=== PATIENT | male | born 1950 | race Two or more races ===

== ENCOUNTER → 2017-05-19 | Outpatient (CLI) | payer MEDICARE, OTHER ==
--- NOTE | 2017-05-19 17:11 | US ---
EXAMINATION TYPE: US scrotum with doppler. Grayscale and color Doppler Duplex imaging performed of jose fitzpatrick scrotum. DATE OF EXAM: 05/19/2017 COMPARISON: NONE CLINICAL HISTORY: N45.1 Epididymitis. EXAM MEASUREMENTS: TESTICLES: Right Testicle: 4.2 x 2.4 x 2.9 cm Left Testicle: 3.7 x 2.3 x 3.0 cm EPIDIDYMIS HEAD: Right Epididymis: 0.7 cm Left Epididymis: 1.4 cm Doppler performed to assess for testicular vascularity; good bilateral color flow and waveforms are s een. There is no evidence of testicular torsion. Presence of hydroceles: Right measuring 4.7 x 2.4 x 4.0cm, left measuring 4.4 x 2.0 x 2.3cm Presence of varicoceles: no IMPRESSION: No testicular torsion or mass. Moderate bilateral hydroceles are noted. No epididymal enl argement is seen to suggest epididymitis.
== END | disposition home or self-care (01) ==
LOC: RADUSMAIN 16:26
PROVIDERS: ATTEND Family Medicine
DX: N43.3 Hydrocele, unspecified (principal)
CPT/HCPCS: 76870; 93975

== ENCOUNTER → 2017-05-20 | Outpatient (CLI) | payer MEDICARE, OTHER ==
[2017-05-19 15:43] VITALS: BMI 24.3
== END | disposition home or self-care (01) ==
LOC: PNWHC3 12:54
PROVIDERS: ATTEND Anesthesiology
DX: Z53.9 Procedure and treatment not carried out, unspecified reason (principal)

== ENCOUNTER → 2017-06-20 | Outpatient (CLI) | payer MEDICARE, OTHER ==
--- NOTE | 2017-06-20 12:48 | US ---
EXAMINATION TYPE: US venous doppler duplex LE RT DATE OF EXAM: 06/20/2017 10:52 AM COMPARISON: NONE CLINICAL HISTORY: R Leg Pain M79.604. Right knee pain SIDE PERFORMED: right TECHNIQUE: The lower extremity deep venous system is examined utilizing real time linear array sonog todd with graded compression, doppler sonography and color-flow sonography. VESSELS IMAGED: External Iliac Vein (EIV) Common Femoral Vein Deep Femoral Vein Greater Saphenous Vein * Femoral Vein Popliteal Vein Small Saphenous Vein * Proximal Calf Veins (* superficial vessels) Right Leg: No evidence of DVT. Complex anechoic area right popliteal fossa = 4.1 x 0.8 x 2.5cm, prob able Watters's cyst IMPRESSION: 1. No deep venous thrombosis right lower extremity. 2. Popliteal cyst
== END | disposition home or self-care (01) ==
LOC: RADUSWWP 10:30
PROVIDERS: ATTEND Family Medicine
DX: M71.21 Synovial cyst of popliteal space [Baker], right knee (principal)

== ENCOUNTER → 2017-08-27 | Outpatient (CLI) | payer MEDICARE, OTHER ==
--- NOTE | 2017-08-27 10:41 | MR ---
EXAMINATION TYPE: MR brain wo/w con DATE OF EXAM: 08/27/2017 COMPARISON: CT brain 08/12/2016 HISTORY: Headaches TECHNIQUE: Multiplanar, multisequence images of the brain and brainstem is performed without and with IV contras t, utilizing 7.5 mL intravenous Gadavist . FINDINGS: There is artifact presumably due to patient's dental amalgam. Diffusion weighted images dem onstrate no evidence of a recent infarct or other diffusion abnormality. There is no extra-axial flu id collection. Periventricular, juxtacortical, subcortical hyperintensities are present on inversion recovery and T2-weighted sequences, approximately 20-30 lesions are present. The ventricular system a nd cisternal spaces are normal in size and appearance. The brain volume is age appropriate. Midline structures demonstrate normal morphology. The craniocervical junction appears within normal limits. Post contrast images demonstrate no abnormal enhancement. The dural venous sinuses appear pa tent. The visualized sinuses are remarkable for inflammatory change in the frontal sinus, extensive i nflammatory change in the ethmoid air cells, maxillary sinus left greater than right sphenoid sinus a s on prior CT, and the globes are intact. IMPRESSION: Probable age-related atrophy and chronic small vessel ischemia. Extensive sinus disease.
== END | disposition home or self-care (01) ==
LOC: RADMRIMAIN 08:07
PROVIDERS: ATTEND Nurse Practitioner Family
DX: R51 Headache (principal)
CPT/HCPCS: 70553; A9581

== ENCOUNTER → 2018-09-07 | Outpatient (CLI) | payer MEDICARE, OTHER ==
--- NOTE | 2018-09-07 07:43 | US ---
EXAMINATION TYPE: US kidneys/renal and bladder DATE OF EXAM: 09/07/2018 COMPARISON: NONE CLINICAL HISTORY: R10.9 Unspecified abdominal pain. Bilateral flank pain EXAM MEASUREMENTS: Right Kidney: 10.6 x 4.7 x 3.7 cm Left Kidney: 11.3 x 5.6 x 4.6 cm Right Kidney: no evidence of hydronephrosis Left Kidney: no evidence of hydronephrosis Bladder: not fully distended, wall = 0.4cm Bilateral Jets seen: no There is no evidence for hydronephrosis at this point in time. No nephrolithiasis is seen. No kajal s are identified. The urinary bladder is anechoic. Bilateral ureteral jets are seen. IMPRESSION: No hydronephrosis or nephrolithiasis. Circumferential mild urinary bladder wall thickening is likely related to incomplete distention of the urinary bladder. Correlation with urinalysis is recommended t o exclude cystitis.
== END ==
LOC: RADUSWWP 07:08
PROVIDERS: ATTEND Family Medicine
DX: R10.9 Unspecified abdominal pain (principal)
CPT/HCPCS: 76770

== ENCOUNTER → 2019-01-01 | Outpatient (CLI) | payer MEDICARE, OTHER ==
--- NOTE | 2019-01-01 09:54 | US ---
EXAMINATION TYPE: US abdomen complete DATE OF EXAM: 01/01/2019 COMPARISON: NONE CLINICAL HISTORY: R74.8 Abnormal levels of other serum enzymes. Elevated liver enzymes EXAM MEASUREMENTS: Liver Length: 18.1 cm Gallbladder Wall: 0.2 cm CBD: 0.5 cm Spleen: 10.4 cm Right Kidney: 10.7 x 4.0 x 3.9 cm Left Kidney: 11.4 x 4.9 x 4.2 cm Pancreas: Obscured by bowel gas Liver: There is increased echogenicity of the hepatic parenchyma with diminished visualization of the portal triads most commonly relating to hepatic steatosis and limiting evaluation for underlying hep atic masses. Gallbladder: no evidence of stones Evidence for sonographic Solomon's sign: no CBD: wnl Spleen: wnl Right Kidney: no evidence of hydronephrosis Left Kidney: no evidence of hydronephrosis Upper IVC: wnl Abd Aorta: visualized portions appear wnl The intrahepatic portion of the IVC and proximal abdominal aorta are within normal limits. There is no evidence of cholelithiasis. Common bile duct is unremarkable. The visualized portions of the russell creas are homogenous. The spleen is unremarkable. Kidneys are symmetric and free of hydronephrosis. No renal lesions are seen. IMPRESSION: 1. Findings suggesting mild degree hepatic steatosis. Correlate with liver function tests results. 2. No evidence of cholelithiasis nor acute cholecystitis.
== END | disposition home or self-care (01) ==
LOC: RADUSWWP 08:40
PROVIDERS: ATTEND Nurse Practitioner Family
DX: R74.8 Abnormal levels of other serum enzymes (principal)
CPT/HCPCS: 76700

== ENCOUNTER → 2021-01-04 | Outpatient (CLI) | payer MEDICARE, OTHER ==
--- NOTE | 2021-01-04 11:50 | US ---
EXAMINATION TYPE: US scrotum with doppler. Grayscale and color Doppler Duplex imaging performed of jose fitzpatrick scrotum. DATE OF EXAM: 01/04/2021 COMPARISON: US 2017 CLINICAL HISTORY: Scrotum pain, Swollen Pain, N50.82,N50.89. Severe left sided pain EXAM MEASUREMENTS: TESTICLES: Right Testicle: 4.4 x 3.3 x 2.1 cm Left Testicle: 4.2 x 2.9 x 2.6 cm EPIDIDYMIS HEAD: Right Epididymis: 0.6 cm Left Epididymis: 2.6 cm Doppler performed to assess for testicular vascularity; good bilateral color flow and waveforms are s een. There is no evidence of testicular torsion. Presence of hydroceles: Yes, Left side = 2.0 x 1.3 x 1.2 cm Presence of varicoceles: Yes, Left side Left epididymitis IMPRESSION: 1. No suspicious flow anomaly to suggest testicular torsion. 2. Increased left epididymis flow with increased size suggesting acute left epididymitis. 3. Small left sided hydrocele
== END | disposition home or self-care (01) ==
LOC: RADUSWWP 10:40
PROVIDERS: ATTEND Family Medicine
DX: N43.3 Hydrocele, unspecified (principal)
CPT/HCPCS: 76870; 93975

== ENCOUNTER → 2021-05-17 | Outpatient (CLI) | payer MEDICARE, OTHER ==
[2021-05-17 09:00] LABS: African American GFR (CKD) >90 (>60 ml/min/1.73 sqM); Blood Urea Nitrogen 11 mg/dL (9-20); Non-African American GFR(CKD) >90 (>60 ml/min/1.73 sqM)
--- NOTE | 2021-05-17 11:41 | CT ---
EXAMINATION TYPE: CT urogram wo/w con DATE OF EXAM: 05/17/2021 COMPARISON: Ultrasound 09/07/2018, CT 3 2015 HISTORY: Hematuria CT DLP: 1627 mGycm, Automated Exposure Control for Dose Reduction was Utilized. CONTRAST: CT scan of the abdomen and pelvis is performed with oral and without and with IV Contrast, patient in jected with 100 mL of Isovue 300. FINDINGS: LUNG BASES: No significant abnormality is appreciated. LIVER/GB: Tiny hypodensity within the right lobe of the liver is too small to characterize.. PANCREAS: No significant abnormality is seen. SPLEEN: No significant abnormality is seen. ADRENALS: No significant abnormality is seen. KIDNEYS: There is no hydronephrosis or nephrolithiasis. There are 2 tiny hypodensities measuring less than 5 mm within the right kidney too small to characte rize but statistically most likely related to cysts. There is a mid cortical posterior 1.2 cm left renal lesion which does not meet the criteria of a simp le cyst and measures 45 Hounsfield units. No filling defects within the renal pelvis. The ureters are segmentally demonstrated to be of normal course and caliber. No filling defects. Lack of contrast limits assessment of the distal 2 cm of bila teral ureter. There is severe thickening of the bladder wall. There is a posterior impression likely related to enl arged prostate gland rather than mucosal lesion but cystoscopy and direct visualization is recommende d. Correlate for history of prostate hypertrophy and cystitis or prostatitis. Correlate with PSA.. BOWEL: Diverticulosis with no CT evidence of diverticulitis. Appendix normal.. LYMPH NODES: No greater than 1cm abdominal or pelvic lymph nodes are appreciated. OSSEOUS STRUCTURES: Degenerative ankylosis at the right SI joint to a lesser degree on the left. Deg enerative changes in the mid to lower lumbar spine. Bilateral arthropathy of the hips. OTHER: Aorta of normal caliber. Atherosclerotic change is noted. IMPRESSION: 1. Severe Concentric bladder wall thickening correlate for cystitis. Prostate gland appears to be enl arged. Consider direct visualization to exclude mucosal lesion the bladder. 2. No hydronephrosis or nephrolithiasis. There is an indeterminate 1.2 cm posterior mid cortical lesi on involving the left kidney measuring 45 Hounsfield units. It does not meet the criteria of a simple cyst. Suggestive of Bosniak 3 classification. MRI recommended.
== END | disposition home or self-care (01) ==
LOC: RADCTMAIN 08:18
PROVIDERS: ATTEND Urology
DX: N32.89 Other specified disorders of bladder (principal)
CPT/HCPCS: 82565; 84520; 74178; 74400; Q9967

== ENCOUNTER → 2021-05-24 | Outpatient (CLI) | payer MEDICARE, OTHER ==
[2021-05-24 12:15] LABS: Basophils % (A) 0 %; Eosinophils # (A) 0.3 k/uL (0-0.7); Eosinophils % (A) 4 %; HCT 45.3 % (39.0-53.0); HGB 15.2 gm/dL (13.0-17.5); Lymphocytes # (A) 1.5 k/uL (1.0-4.8); Lymphocytes % (A) 22 %; MCH 34.3 pg (25.0-35.0); MCHC 33.5 g/dL (31.0-37.0); MCV 102.5 fL (80.0-100.0); Macrocytosis Slight; Mean Platelet Volume 8.5; Monocytes # (A) 0.5 k/uL (0-1.0); Monocytes % (A) 7 %; Neutrophils # (A) 4.4 k/uL (1.3-7.7); Neutrophils % (A) 64 %; Platelet Count 251 k/uL (150-450); RBC 4.42 m/uL (4.30-5.90); RDW 13.7 % (11.5-15.5); WBC 6.9 k/uL (3.8-10.6)
[2021-05-24 12:25] LABS: African American GFR (CKD) >90 (>60 ml/min/1.73 sqM); Anion Gap 10 mmol/L; Blood Urea Nitrogen 4 mg/dL (9-20); Calcium 9.1 mg/dL (8.4-10.2); Carbon Dioxide 24 mmol/L (22-30); Chloride 103 mmol/L (98-107); Glucose 108 mg/dL (74-99); Non-African American GFR(CKD) >90 (>60 ml/min/1.73 sqM); Potassium 4.1 mmol/L (3.5-5.1); Sodium 137 mmol/L (137-145)
== END | disposition home or self-care (01) ==
LOC: LABPAT 11:26
PROVIDERS: ATTEND Urology
DX: Z01.812 Encounter for preprocedural laboratory examination (principal); D49.4 Neoplasm of unspecified behavior of bladder; R31.0 Gross hematuria
CPT/HCPCS: 80048; 85025

== ENCOUNTER 2021-06-07 09:31 | Day surgery (SDC) | payer MEDICARE, OTHER ==
[2021-06-01 08:59] VITALS: BMI 25.5
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
[~2021-06-07 09:31] MED LIST: DEXAMETHASONE SOD PHOSPHATE 4 MG/ML 1 ML VIAL IV ONE; HYDROmorphone 0.5 MG/0.5 ML SYRINGE IVP PRN; LACTATED RINGERS 1,000 ML IV SCH; LIDOCAINE 1% (10MG/ML) FOR IV START INTRADERMA PRN; MIDAZOLAM 2 MG/2 ML VIAL IV PRN; ONDANSETRON 4 MG/2 ML VIAL IVP ONE; fentaNYL (PF) 50 MCG/ML 2 ML AMP IV PRN
[2021-06-07] MEDS ORDERED: MIDAZOLAM 2 MG/2 ML VIAL IVP ONE ×2 (11:01→11:14)
[2021-06-07] MEDS ORDERED: LACTATED RINGERS 1,000 ML IV ONE ×2 (13:52→16:30)
--- NOTE | 2021-06-07 14:33 | P.OP ---
Date of Procedure: 06/07/21 Preoperative Diagnosis: Gross hematuria Postoperative Diagnosis: Same Procedure(s) Performed: Cystoscopy with bladder biopsies, fulguration of biopsy sites Anesthesia: MICHELLEA Surgeon: Bin Vicente Estimated Blood Loss (ml): 20 IV fluids (ml): 500 Pathology: other (Biopsies from right lateral bladder wall and left lateral bladder wall.) Condition: stable Disposition: PACU Indications for Procedure: The patient is a 70-year-old male with recent gross hematuria associated with right flank and lower abdominal pain. A CT urogram showed a 1.2 cm left renal complex cyst as well as bladder wall thickening. Cystoscopy shows diminished urethral caliber, trilobar BPH, and erythema of the anterior bladder wall, right lateral bladder wall, and bladder trigone. Urine cytology was unremarkable. He now comes for cystoscopy with biopsies, possible bladder tumor resection. Operative Findings: Hypervascularity surrounding both ureteral orifices, moreso on the right. Trilobar BPH. Diminished urethral caliber. Description of Procedure: The patient was taken to the operating room and placed in the dorsolithotomy position, with his legs supported in Yayo stirrups. The external genitalia was prepped and draped sterilely. The 30 lens was used to introduce the 22-Greek Stortz cystoscopic sheath through the urethral meatus. As the cystoscope was advanced, it was apparent that the urethral caliber would not accommodate the sheath. Therefore, the Roberto urethrotome was used to incise the urethra to 24- Greek. It was then possible to advance the cystoscope through the urethra and into the bladder under direct vision. The prostate was visually occluded, with a trilobar configuration. 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 The ureteral orifices appeared normal, and clear urine effluxed from both. Careful inspection revealed no mucosal abnormalities. Hypervascularity was seen surrounding both ureteral orifices, moreso on the right with extension onto the right lateral bladder wall. No papillary tumors were seen. Using the cold cup biopsy forceps, 2 biopsies were obtained from each side in the area of erythema/hypervascularity. The Bugbee electrode was used to fulgurate the biopsy sites, attaining complete hemostasis. The bladder was emptied and the cystoscope removed. The patient tolerated the procedure well was taken to the recovery room in stable condition.
[2021-06-07] MEDS: HYDROmorphone 0.5 MG/0.5 ML SYRINGE IVP PRN ×2 (14:54→15:32)
[2021-06-07 14:57] VITALS: TEMP 98.1
[2021-06-07] MEDS ORDERED: hydrALAZINE HCL 20 MG/ML 1 ML VIAL IVP ONE (16:10)
[2021-06-07] MEDS ORDERED: hydrALAZINE HCL 20 MG/ML 1 ML VIAL ONE (16:17)
[2021-06-07 17:25] VITALS: BP 174/69; PULSE 65; RESP 18
== END 2021-06-07 17:58 | disposition home or self-care (01) ==
LOC: OR 09:31
PROVIDERS: ATTEND Urology
DX: N30.21 Other chronic cystitis with hematuria (principal); I10 Essential (primary) hypertension; J44.9 Chronic obstructive pulmonary disease, unspecified; F41.9 Anxiety disorder, unspecified; F32.9 Major depressive disorder, single episode, unspecified; Z79.899 Other long term (current) drug therapy
CPT/HCPCS: 88305; 52204; J2250; J0360; J1100; J2405; J1170

== ENCOUNTER 2021-06-23 20:02 | Emergency (ER) | payer MEDICARE, OTHER ==
[2021-06-23 20:07] VITALS: RESP 18; TEMP 97.5
[2021-06-23] MEDS ORDERED: LIDOCAINE URO-JET JELLY 2% 5 ML KIT URETHRAL ONE (20:12)
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
[2021-06-23 21:21] LABS: Basophils % (A) 0 %; Eosinophils # (A) 0.3 k/uL (0-0.7); Eosinophils % (A) 4 %; Lymphocytes # (A) 1.5 k/uL (1.0-4.8); Lymphocytes % (A) 21 %; MCH 34.7 pg (25.0-35.0); MCHC 35.1 g/dL (31.0-37.0); MCV 98.9 fL (80.0-100.0); Mean Platelet Volume 7.9; Monocytes # (A) 0.4 k/uL (0-1.0); Monocytes % (A) 6 %; Neutrophils # (A) 4.7 k/uL (1.3-7.7); Neutrophils % (A) 67 %; Platelet Count 330 k/uL (150-450); RBC 3.34 m/uL (4.30-5.90); RDW 11.5 % (11.5-15.5)
[2021-06-23 21:36] LABS: Appearance,Urine Cloudy (Clear); Bacteria,Urine Occasional /hpf; Bilirubin,Urine Negative (Negative); Blood,Urine Large (Negative); Color,Urine Light Red; Glucose,Urine (UA) Negative (Negative); Hyaline Casts,Urine 1 /lpf (0-2); Ketones,Urine Negative (Negative); Leukocyte Esterase,Urine Large (Negative); Nitrite,Urine Negative (Negative); PH, Urine 6.5 (5.0-8.0); Protein,Urine 1+ (Negative); RBC,Urine 2 /hpf (0-5); Specific Gravity,Urine 1.002 (1.001-1.035); Urobilinogen,Urine <2.0 mg/dL (<2.0); WBC,Urine 10 /hpf (0-5)
[2021-06-23 21:38] LABS: ALT 30 U/L (4-49); AST 32 U/L (17-59); African American GFR (CKD) >90 (>60 ml/min/1.73 sqM); Albumin 3.5 g/dL (3.5-5.0); Alkaline Phosphatase 76 U/L (38-126); Anion Gap 11 mmol/L; Blood Urea Nitrogen 4 mg/dL (9-20); Calcium 8.7 mg/dL (8.4-10.2); Carbon Dioxide 19 mmol/L (22-30); Chloride 98 mmol/L (98-107); Glucose 90 mg/dL (74-99); Non-African American GFR(CKD) 87 (>60 ml/min/1.73 sqM); Potassium 4.1 mmol/L (3.5-5.1); Sodium 128 mmol/L (137-145); Total Bilirubin 0.3 mg/dL (0.2-1.3); Total Protein 6.8 g/dL (6.3-8.2)
[2021-06-23 21:59] LABS: HGB 11.6 gm/dL (13.0-17.5)
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
[2021-06-23 22:44] VITALS: BP 146/78; PULSE 60
== END 2021-06-23 22:44 | disposition home or self-care (01) ==
LOC: EC 20:02
DX: T83.098A Other mechanical complication of other urinary catheter, initial encounter (principal); I10 Essential (primary) hypertension; J44.9 Chronic obstructive pulmonary disease, unspecified; F41.9 Anxiety disorder, unspecified; F32.9 Major depressive disorder, single episode, unspecified; Z88.6 Allergy status to analgesic agent; Y84.6 Urinary catheterization as the cause of abnormal reaction of the patient, or of later complication, without mention of misadventure at the time of the procedure
CPT/HCPCS: 36415; 51702; 80053; 81001; 85025; 99283

== ENCOUNTER 2022-07-05 11:48 | Emergency (ER) | payer MEDICARE, OTHER ==
[2022-07-05 11:58] VITALS: TEMP 98.1
[2022-07-05] MEDS ORDERED: traMADol 50 MG TAB PO STA (12:13)
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
--- NOTE | 2022-07-05 13:02 | US ---
EXAMINATION TYPE: US scrotum with doppler. Grayscale and color Doppler Duplex imaging performed of jose fitzpatrick scrotum. DATE OF EXAM: 07/05/2022 COMPARISON: NONE CLINICAL HISTORY: L pain. ongoing left testicle pain for years, patient states he was supposed to hav e procedure done but never did, unknown exactly what EXAM MEASUREMENTS: TESTICLES: Right Testicle: 3.7 x 2.7 x 2.2 cm Left Testicle: 3.4 x 2.2 x 2.4 cm EPIDIDYMIS HEAD: Right Epididymis: 1.1 cm Left Epididymis: 0.7 cm Doppler performed to assess for testicular vascularity; good bilateral color flow and waveforms are s een. There is no evidence of testicular torsion. Presence of hydroceles: no Presence of varicoceles: left lateral side at area of pain IMPRESSION: 1. Multiple left-sided varicoceles. No evidence for torsion or inflammatory process.
[2022-07-05] MEDS ORDERED: traMADol 50 MG STARTER PACK 3 TAB BTL PO STA (13:18)
[2022-07-05] MEDS ORDERED: atenoloL 50 MG TAB PO STA (14:10)
[2022-07-05] MEDS ORDERED: hydroCHLOROthiazide 25 MG TAB PO STA (14:10)
[2022-07-05 14:21] VITALS: RESP 18
[2022-07-05 15:26] VITALS: BP 181/99; PULSE 78
== END 2022-07-05 14:40 | disposition home or self-care (01) ==
LOC: EC 11:48
DX: I86.1 Scrotal varices (principal); J44.9 Chronic obstructive pulmonary disease, unspecified; I10 Essential (primary) hypertension; Z79.899 Other long term (current) drug therapy; Z88.6 Allergy status to analgesic agent
CPT/HCPCS: 76870; 93975; 99284

== ENCOUNTER 2022-10-30 11:55 | Emergency (ER) | payer MEDICARE, OTHER ==
[2022-10-30 12:02] VITALS: RESP 18
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
[2022-10-30 13:25] LABS: Basophils # (A) 0.1 k/uL (0-0.2); Basophils % (A) 1 %; Eosinophils # (A) 0.2 k/uL (0-0.7); Eosinophils % (A) 2 %; HCT 44.7 % (39.0-53.0); HGB 15.5 gm/dL (13.0-17.5); Lymphocytes # (A) 1.2 k/uL (1.0-4.8); Lymphocytes % (A) 17 %; MCH 33.4 pg (25.0-35.0); MCHC 34.6 g/dL (31.0-37.0); MCV 96.6 fL (80.0-100.0); Monocytes # (A) 0.5 k/uL (0-1.0); Monocytes % (A) 7 %; Neutrophils # (A) 5.2 k/uL (1.3-7.7); Neutrophils % (A) 72 %; Platelet Count 244 k/uL (150-450); RBC 4.63 m/uL (4.30-5.90); RDW 12.3 % (11.5-15.5); WBC 7.3 k/uL (3.8-10.6)
[2022-10-30 13:34] LABS: ALT 50 U/L (4-49); AST 39 U/L (17-59); African American GFR (CKD) >90 (>60 ml/min/1.73 sqM); Albumin 4.3 g/dL (3.5-5.0); Alkaline Phosphatase 86 U/L (38-126); Anion Gap 3 mmol/L; Blood Urea Nitrogen 9 mg/dL (9-20); Calcium 9.1 mg/dL (8.4-10.2); Carbon Dioxide 28 mmol/L (22-30); Chloride 105 mmol/L (98-107); Glucose 101 mg/dL (74-99); Magnesium 2.1 mg/dL (1.6-2.3); Non-African American GFR(CKD) >90 (>60 ml/min/1.73 sqM); Potassium 4.2 mmol/L (3.5-5.1); Salicylate <1.0 mg/dL; Sodium 136 mmol/L (137-145); Total Protein 7.7 g/dL (6.3-8.2)
[2022-10-30 13:38] LABS: INR 1.1 (<1.2); Partial Thromboplastin Time 25.8 sec (22.0-30.0); Prothrombin Time 11.8 sec (9.0-12.0)
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
[2022-10-30 14:58] VITALS: BP 192/83; PULSE 57; TEMP 98.2
== END 2022-10-30 14:58 | disposition home or self-care (01) ==
LOC: EC 11:55
DX: J32.4 Chronic pansinusitis (principal); J44.9 Chronic obstructive pulmonary disease, unspecified; I10 Essential (primary) hypertension; F41.9 Anxiety disorder, unspecified; F32.A Depression, unspecified; Z79.899 Other long term (current) drug therapy; Z88.6 Allergy status to analgesic agent
CPT/HCPCS: 36415; 70450; 80053; 80179; 83735; 85025; 85610; 85730; 93005; 99285

== ENCOUNTER → 2024-01-07 | Outpatient (CLI) | payer MEDICARE, OTHER ==
--- NOTE | 2024-01-07 21:16 | US ---
EXAMINATION TYPE: US abdomen complete DATE OF EXAM: 01/07/2024 COMPARISON: 01/01/2019 CLINICAL INDICATION: Male, 73 years old with history of R74.8 ABN LIVER ENZYMES F10.20 ALCOHOL DEPEND ENCE; Patient drinks about 3 beers per day. Patient denies any signs or symptoms at this time TECHNIQUE: Multiple sonographic images of the abdomen are obtained. FINDINGS: EXAM MEASUREMENTS: Liver Length: 16.1 cm Gallbladder Wall: 0.2 cm CBD: 0.3 cm Spleen: 8.8 cm Right Kidney: 10.5 x 4.6 x 5.3 cm Left Kidney: 11.0 x 6.8 x 6.3 cm ELECTRODYNAMICIST NOTES: Unremarkable exam Pancreas: wnl Liver: wnl Gallbladder: wnl Evidence for sonographic Solomon's sign: No CBD: wnl Spleen: wnl Right Kidney: wnl Left Kidney: wnl Upper IVC: wnl Abd Aorta: wnl IMPRESSION: 1 no suspicious acute ultrasound of the abdomen
== END | disposition home or self-care (01) ==
LOC: RADUSWWP 12:35
PROVIDERS: ATTEND Family Medicine
DX: R74.8 Abnormal levels of other serum enzymes (principal); F10.20 Alcohol dependence, uncomplicated
CPT/HCPCS: 76700

== ENCOUNTER 2024-06-11 11:55 | Observation (INO) | payer MEDICARE, OTHER ==
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
[2024-06-11 12:51] LABS: Basophils % (A) 1 %; Eosinophils # (A) 0.2 k/uL (0-0.7); Eosinophils % (A) 3 %; HCT 45.3 % (39.0-53.0); HGB 15.2 gm/dL (13.0-17.5); Lymphocytes # (A) 1.7 k/uL (1.0-4.8); Lymphocytes % (A) 24 %; MCH 33.7 pg (25.0-35.0); MCHC 33.6 g/dL (31.0-37.0); MCV 100.3 fL (80.0-100.0); Mean Platelet Volume 7.6; Monocytes # (A) 0.6 k/uL (0-1.0); Monocytes % (A) 9 %; Neutrophils # (A) 4.1 k/uL (1.3-7.7); Neutrophils % (A) 60 %; Platelet Count 264 k/uL (150-450); RBC 4.51 m/uL (4.30-5.90); RDW 12.3 % (11.5-15.5); WBC 6.9 k/uL (3.8-10.6)
[2024-06-11 13:03] LABS: ALT 42 U/L (4-49); AST 44 U/L (17-59); African American GFR (CKD) >90 (>60 ml/min/1.73 sqM); Albumin 4.2 g/dL (3.5-5.0); Alkaline Phosphatase 71 U/L (38-126); Anion Gap 8 mmol/L; Blood Urea Nitrogen 11 mg/dL (9-20); Calcium 9.3 mg/dL (8.4-10.2); Carbon Dioxide 26 mmol/L (22-30); Chloride 104 mmol/L (98-107); Glucose 78 mg/dL (74-99); Magnesium 2.3 mg/dL (1.6-2.3); Non-African American GFR(CKD) 86 (>60 ml/min/1.73 sqM); Sodium 138 mmol/L (137-145); Total Bilirubin 1.1 mg/dL (0.2-1.3); Total Protein 7.5 g/dL (6.3-8.2)
[2024-06-11 13:11] LABS: INR 1.1 (<1.2); Partial Thromboplastin Time 27.2 sec (22.0-30.0); Prothrombin Time 11.8 sec (10.0-12.5)
[2024-06-11 13:48] LABS: Acetaminophen <10.0 ug/mL; Amylase 73 U/L (30-110); Lipase 140 U/L (23-300)
[2024-06-11] MEDS: SODIUM CHLORIDE 0.9% 500 ML 500 ML IV STA (13:50)
--- NOTE | 2024-06-11 13:51 | CT ---
EXAMINATION TYPE: CT brain wo con CT DLP: 1095.7 mGycm, Automated exposure control for dose reduction was used. DATE OF EXAM: 06/11/2024 1:43 PM COMPARISON: 10/30/2022. CLINICAL INDICATION: Male, 73 years old with history of altered mental status, Altered Mental Status TECHNIQUE: Brain: Axial CT images of the brain were obtained with coronal and sagittal reformats created and rev iewed. Contrast used: None. Oral contrast used: None. FINDINGS: Brain: Extra-axial spaces: No abnormal extra-axial fluid collections. Ventricular system: Within normal limits Cerebral parenchyma: Focal area of wolfe-white matter differentiation medially a posterior right front al lobe. No acute intraparenchymal hemorrhage or mass effect. The wolfe-white junction is well differ entiated. Cerebellum: Unremarkable. Mass effect: No evidence of midline shift. Intracranial vasculature: Atherosclerotic calcifications of the intracranial vessels. Soft tissues: Normal. Calvarium/osseous structures: No depressed skull fracture. Paranasal sinuses and mastoid air cells: Mild scattered paranasal sinus disease. Visualized orbits: Orbital contents are intact. IMPRESSION: 1. No evidence for acute/subacute ischemia. 2. Remote injury of the right posterior medial frontal lobe.
[2024-06-11 13:57] LABS: NT-Pro-B-Type Natriuretic Pept 1530 pg/mL
[2024-06-11 13:59] LABS: Alcohol 157 mg/dL
[2024-06-11 14:14] VITALS: BP 182/95; PULSE 48; RESP 15
--- NOTE | 2024-06-11 15:04 | CT ---
EXAMINATION TYPE: CT noncontrast chest abdomen pelvis. CT angiogram chest abdomen pelvis CT DLP: 2587 mGycm, Automated exposure control for dose reduction was used. DATE OF EXAM: 06/11/2024 2:01 PM COMPARISON: . CLINICAL INDICATION: Male, 73 years old with history of chest pain, radiates to back; PHH, Chest pain , radiates to back TECHNIQUE: Noncontrast axial imaging of the chest abdomen pelvis were performed. Contrast was then in jected and angiogram of the chest abdomen pelvis was performed. contrast. 3-D reformats and maximum i ntensity projection format were performed on a separate workstation. Contrast used:100 ml mL of Isovue 370 without and with IV Contrast, Oral contrast used: None FINDINGS: ARTERIAL VASCULATURE: Ascending thoracic aorta and descending thoracic aorta are within normal limits for size. There is no evidence for intramural hematoma within the aorta on noncontrast imaging. Post contrast imaging demonstrates no evidence for dissection. The major vessels of the aortic arch are pa tent. The major vessels of the abdominal aorta are patent. Major vessels of the abdominal aorta are p atent. No significant stenosis is identified. There are 2 right renal arteries and 2 left renal arter ies. The celiac axis superior mesenteric artery and inferior mesenteric arteries are visualized and p atent. PULMONARY ARTERIAL VASCULATURE: Normal caliber. No evidence of filling defect to suggest pulmonary em bolus. VENOUS SYSTEM: Unremarkable. LUNGS/ PLEURA: The lung parenchyma appears unremarkable. AIRWAY: Patent and unremarkable. HEART: Size within normal limits. MEDIASTINUM: No gross evidence of adenopathy. MUSCULOSKELETAL: No acute osseous abnormalities SOFT TISSUES/LYMPH NODES: Unremarkable. LOWER NECK: No significant findings. Abdomen: LIVER: Unremarkable GALLBLADDER AND BILE DUCTS: Unremarkable. PANCREAS: Unremarkable. SPLEEN: Unremarkable. ADRENAL GLANDS: Unremarkable. KIDNEYS AND URETERS: No evidence of hydronephrosis or renal calculus. The ureters are unremarkable. PELVIS BLADDER: Unremarkable REPRODUCTIVE: Prostate is enlarged in size measuring 4.9 cm in transverse dimension. Mild enhancement of the left mid central gland series 501 image 269 ABDOMEN & PELVIS STOMACH AND BOWEL: Moderate amount stool throughout the colon. No evidence of bowel obstruction. The appendix is normal. PERITONEUM/RETROPERITONEUM: No evidence of pneumoperitoneum or free fluid. MUSCULOSKELETAL: No acute osseous abnormalities LYMPH NODES: No gross evidence for lymphadenopathy. SOFT TISSUE/ABDOMINAL WALL: Unremarkable IMPRESSION: 1. No evidence for thoracic aortic dissection, occlusion or aneurysm.. 2. Prostatomegaly with some arterial enhancement of the left central gland, correlate with serum PSA . 3. Moderate amount stool throughout the colon.
[2024-06-11] MEDS ORDERED: NALOXONE 0.4 MG/ML 1 ML VIAL IV PRN (15:46)
[2024-06-11] MEDS ORDERED: ALPRAZolam 0.25 MG TAB PO PRN (15:49)
[2024-06-11] MEDS ORDERED: ONDANSETRON 4 MG/2 ML VIAL IVP PRN (15:49)
[2024-06-11] MEDS ORDERED: THIAMINE 100 MG/ML 2 ML VIAL IM STA (15:49)
[2024-06-11] MEDS ORDERED: MAG HYDROX/AL HYDROX/SIMETH 30 ML CUP PO PRN (15:49)
[2024-06-11] MEDS ORDERED: CALCIUM CARBONATE 500 MG CHEWABLE PO PRN (15:49)
[2024-06-11] MEDS ORDERED: ACETAMINOPHEN TAB 325 MG TAB PO PRN (15:49)
[2024-06-11] MEDS ORDERED: FOLIC ACID 1 MG TAB PO STA (15:50)
[2024-06-11] MEDS ORDERED: MAGNESIUM SULFATE-D5W PMX 1 GM in DEXTROSE/WATER 1 100ML.BAG IVPB STA (15:50)
[2024-06-11] MEDS ORDERED: MULTIVITAMINS, THERA 1 EACH TAB PO STA (15:50)
[2024-06-11] MEDS ORDERED: DEXTROSE 5%-0.45% NACL 1,000 ML IV SCH (16:00)
[2024-06-11] MEDS ORDERED: FAMOTIDINE 20 MG TAB PO SCH (21:00)
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
--- NOTE | 2024-06-12 00:40 | P.DS ---
Providers Date of admission: 06/11/24 15:50 Expected date of discharge: 06/12/24 Attending physician: Fazal Nichols Consults: 06/11/24 15:46 Consult Physician Routine Consulting Provider: Adam Sun Consult Reason/Comments: Chest pain Do you want consulting provider notified?: Yes, Notify in am Primary care physician: [facility] Hospital Course: Discharge diagnosis Acute alcohol intoxication with serum alcohol level 157 Chest pain radiating to the back. CT aorta showed no dissection or aneurysm. Rule out ACS Left lower extremity pain and tingling sensation. CT head is negative. Anxiety/depression Alcohol abuse Uncontrolled hypertension COPD DVT prophylaxis heparin subcu Hospital course Patient is a 73-year-old male with a past medical history of COPD, hypertension, anxiety/depression and alcohol use presents to ER with complaints of chest pain. Patient is somewhat poor historian due to intoxication. Patient states he has a history of prior stroke. Patient complains of chest pain radiating to the back. He is also complaining of left lower extremity and upper extremity tingling sensation and pain. Patient states that his chest pain is worse with nausea, dizziness and lightheadedness. Symptoms have been present for the past 3 to 7 days. Patient did receive 325 mg aspirin upon arrival. Chest pain comes and goes. Denied any hematemesis or melena. Patient states that he does drink 3-4 beers per day) this morning. Patient is otherwise poor historian. Upon admission CT head was done showed no evidence of acute/subacute ischemia. Remote injury of the right posterior medial frontal lobe. EKG showed sinus bradycardia. CT thoracic aorta showed no evidence for thoracic aortic dissection, occlusion or aneurysm. Prostatomegaly with some arterial enhancement of the left central gland correlate with serum PSA. Moderate amount of stool throughout the colon. Blood pressure was 158/75 pulse is 50 and respiration 18 and pulse ox 98% on room air. Laboratory data showed WBC 6.9 hemoglobin 15.1 platelets 264 sodium 138 potassium 4.0 chloride 104 bicarb is 26 BUN 11 creatinine 0.99 liver enzymes are not elevated. Ammonia less than 9 troponin x 2 negative proBNP 1530 amylase lipase within normal limits. Serum alcohol level is 157. Patient was continued on telemonitoring. Continued with aspirin. was started back on blood pressure medications and titrate dose as required. Monitored for alcohol withdrawal symptoms. Thiamine and multivitamins. IV hydration. Continue with pain management. Cardiology evaluation due to complaints of chest pain. Troponin x 2 negative. proBNP 1530.. Alcohol abstinence will be counseled once patient is more sober. Patient does not want to stay until cardiology evaluation and left AMA. Discharge physical examination was done and vitals reviewed. Patient Condition at Discharge: Fair Plan - Discharge Summary New Discharge Prescriptions: No Action traZODone HCL [Desyrel] 50 mg PO HS Atenolol/Chlorthalidone [Atenolol-Chlorthalidone 100-25] 1 each PO QAM Albuterol Sulfate [Proair Hfa] 2 puff INHALATION Q4H PRN PRN Reason: Shortness Of Breath Acetaminophen [Tylenol Extra Strength] 500 mg PO Q4H PRN PRN Reason: Pain Cholecalciferol [Vitamin D3 (25 Mcg = 1000 Iu)] 25 mcg PO DAILY Amoxic-Pot Clav 875-125Mg [Augmentin 875-125] 1 tab PO BID 10 Days #20 tab Discharge Medication List Atenolol/Chlorthalidone [Atenolol-Chlorthalidone 100-25] 1 each PO QAM 07/01/16 [History] traZODone HCL [Desyrel] 50 mg PO HS 07/01/16 [History] Acetaminophen [Tylenol Extra Strength] 500 mg PO Q4H PRN 05/19/17 [History] Albuterol Sulfate [Proair Hfa] 2 puff INHALATION Q4H PRN 05/19/17 [History] Cholecalciferol [Vitamin D3 (25 Mcg = 1000 Iu)] 25 mcg PO DAILY 06/05/21 [History] Amoxic-Pot Clav 875-125Mg [Augmentin 875-125] 1 tab PO BID 10 Days #20 tab 10/30/22 [Rx] Follow up Appointment(s)/Referral(s): Fara Fitzpatrick MD [Primary Care Provider] - 1-2 days Discharge Disposition: LEFT AGAINST MEDICAL ADVICE
== END 2024-06-11 19:29 | disposition left against medical advice (07) ==
LOC: EC 11:55 → 6NMEDSUR 15:50
PROVIDERS: ADMIT Internal Medicine; ATTEND Internal Medicine
DX: R07.89 Other chest pain (principal); F10.229 Alcohol dependence with intoxication, unspecified; M79.605 Pain in left leg; R20.2 Paresthesia of skin; J44.9 Chronic obstructive pulmonary disease, unspecified; I10 Essential (primary) hypertension; F32.A Depression, unspecified; F41.9 Anxiety disorder, unspecified; Y90.6 Blood alcohol level of 120-199 mg/100 ml; Z86.73 Personal history of transient ischemic attack (TIA), and cerebral infarction without residual deficits; Z79.899 Other long term (current) drug therapy; Z88.6 Allergy status to analgesic agent; Z53.29 Procedure and treatment not carried out because of patient's decision for other reasons
CPT/HCPCS: 36415; 70450; 71275; 74174; 80053; 80143; 80320; 82140; 82150; 83690; 83735; 83880; 84484; 85025; 85610; 85730; 93005; 96360; 99285

== ENCOUNTER → 2024-07-29 | Outpatient (CLI) | payer MEDICARE, OTHER ==
--- NOTE | 2024-07-29 16:26 | XR ---
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 FINDINGS: The osseous structures show normal alignment without evidence of an acute fracture. There are osteoph ytes noted throughout the cervical spine on the anterior and lateral aspects of the vertebral bodies. The intervertebral disk spaces are narrowed at multiple levels. Pedicles are intact. Soft tissues a re within normal limits. The odontoid appears intact. IMPRESSION: 1. No fracture or dislocation. 2. Mild degenerative disc disease changes of the cervical spine. [facility], , 07/29/2024 4:23 PM
== END | disposition home or self-care (01) ==
LOC: RADXRMAIN 15:28
PROVIDERS: ATTEND Family Medicine
DX: M50.30 Other cervical disc degeneration, unspecified cervical region (principal)
CPT/HCPCS: 72050

== ENCOUNTER 2024-12-02 03:27 | Emergency (ER) | payer MEDICARE, OTHER ==
[2024-12-02 03:46] VITALS: RESP 18
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
[2024-12-02 05:16] VITALS: BP 124/75; PULSE 75; TEMP 97.8
[2024-12-16] MEDS: FUROSEMIDE 10 MG/ML 4 ML VIAL IV ONE (17:13)
[2024-12-16] MEDS: LIDOCAINE 1% INJ 10MG/ML (30 ML VIAL-PF) SQ ONE (17:13)
== END 2024-12-02 05:16 | disposition home or self-care (01) ==
LOC: EC 03:27
DX: T83.091A Other mechanical complication of indwelling urethral catheter, initial encounter (principal); Z87.891 Personal history of nicotine dependence; Z88.6 Allergy status to analgesic agent
CPT/HCPCS: 51702; 99283

== ENCOUNTER 2024-12-15 16:20 | Inpatient (IN) | payer MEDICARE, OTHER ==
[2024-12-15] MEDS ORDERED: HEPARIN SODIUM 1,000 UN/ML (10ML VL) IV PRN (16:32)
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
[2024-12-15 16:44] LABS: Basophils % (A) 0 %; Eosinophils % (A) 0 %; HCT 43.1 % (39.0-53.0); HGB 13.3 gm/dL (13.0-17.5); Hypochromasia Slight; Lymphocytes # (A) 1.1 k/uL (1.0-4.8); Lymphocytes % (A) 14 %; MCHC 30.9 g/dL (31.0-37.0); MCV 100.3 fL (80.0-100.0); Mean Platelet Volume 7.3; Monocytes # (A) 0.4 k/uL (0-1.0); Monocytes % (A) 5 %; Neutrophils # (A) 6.6 k/uL (1.3-7.7); Neutrophils % (A) 79 %; Platelet Count 282 k/uL (150-450); RDW 13.5 % (11.5-15.5); WBC 8.3 k/uL (3.8-10.6)
[2024-12-15] MEDS: HEPARIN SODIUM 1,000 UN/ML (10ML VL) IV ONE (16:47)
[2024-12-15] MEDS: DILTIAZEM 125 MG in SODIUM CHLORIDE 0.9% 100 ML IV SCH (16:49)
[2024-12-15] MEDS: DILTIAZEM DRIP BOLUS FROM BAG 1 MG SOLN IV ONE (16:49)
[2024-12-15] MEDS: HEPARIN SOD,PORK IN 0.45% NACL 25,000 UNIT in 0.45% NACL 1 250ML.BAG IV SCH (16:49)
[2024-12-15 16:56] LABS: ALT 21 U/L (4-49); AST 23 U/L (17-59); African American GFR (CKD) 70 (>60 ml/min/1.73 sqM); Albumin 4.1 g/dL (3.5-5.0); Alkaline Phosphatase 84 U/L (38-126); Anion Gap 15 mmol/L; Blood Urea Nitrogen 20 mg/dL (9-20); Calcium 9.7 mg/dL (8.4-10.2); Carbon Dioxide 16 mmol/L (22-30); Chloride 104 mmol/L (98-107); Glucose 107 mg/dL (74-99); Magnesium 1.8 mg/dL (1.6-2.3); Non-African American GFR(CKD) 60 (>60 ml/min/1.73 sqM); Potassium 5.4 mmol/L (3.5-5.1); Sodium 135 mmol/L (137-145); Total Bilirubin 1.4 mg/dL (0.2-1.3); Total Protein 7.7 g/dL (6.3-8.2)
[2024-12-15 17:03] LABS: INR 1.5 (<1.2); Partial Thromboplastin Time 24.5 sec (22.0-30.0); Prothrombin Time 15.8 sec (10.0-12.5)
--- NOTE | 2024-12-15 17:18 | XR ---
EXAMINATION TYPE: XR chest 2V DATE OF EXAM: 12/15/2024 5:12 PM COMPARISON: Chest radiographs from 11/19/2024 TECHNIQUE: XR chest 2V Frontal and lateral views of the chest. CLINICAL INDICATION:Male, 74 years old with history of Chest Pain; FINDINGS: Lungs/Pleura: Small to moderate size left and small right pleural effusions. No focal consolidation o r pneumothorax. Pulmonary vascularity: Pulmonary vascular congestion. Heart/mediastinum: Cardiomediastinal silhouette is enlarged and stable. Musculoskeletal: No acute osseous pathology. IMPRESSION: Cardiomegaly, pulmonary vascular congestion and bilateral pleural effusions. Correlate with BNP for c ongestive heart failure. Superimposed infectious process is not excluded. [facility], , 12/15/2024 5:16 PM
[2024-12-15] MEDS: NITROGLYCERIN SL TABS 0.4 MG TAB SUBLINGUAL STA (18:08)
[2024-12-15] MEDS: MORPHINE SULFATE 4 MG/ML SYRINGE IVP STA (18:19)
[2024-12-15] MEDS ORDERED: ONDANSETRON 4 MG/2 ML VIAL IVP PRN (18:40)
[2024-12-15] MEDS ORDERED: NALOXONE 0.4 MG/ML 1 ML VIAL IV PRN (18:40)
[2024-12-15] MEDS: ASPIRIN 81 MG PO STA (19:37)
[2024-12-15] MEDS: SODIUM CHLORIDE 0.9% 1,000 ML IV SCH (19:38)
[2024-12-15 20:06] LABS: Appearance,Urine Turbid (Clear); Bacteria,Urine Moderate /hpf; Bilirubin,Urine Negative (Negative); Blood,Urine Large (Negative); Color,Urine Red; Glucose,Urine (UA) Negative (Negative); Hyaline Casts,Urine 17 /lpf (0-2); Ketones,Urine Negative (Negative); Leukocyte Esterase,Urine Large (Negative); Mucus,Urine Rare /hpf; Nitrite,Urine Negative (Negative); PH, Urine 5.5 (5.0-8.0); Protein,Urine 3+ (Negative); RBC,Urine >182 /hpf (0-5); Specific Gravity,Urine 1.021 (1.001-1.035); Urobilinogen,Urine <2.0 mg/dL (<2.0); WBC,Urine >182 /hpf (0-5)
[2024-12-15] MEDS: MORPHINE SULFATE 2 MG/ML SYRINGE IVP PRN (22:37)
[2024-12-16] MEDS ORDERED: CYCLOBENZAPRINE 10 MG TAB PO PRN (09:19)
[2024-12-16] MEDS: AMIODARONE 200 MG TAB PO SCH (09:45)
[2024-12-16] MEDS: METOPROLOL TARTRATE 50 MG TAB PO SCH (09:45)
[2024-12-16] MEDS: GABAPENTIN 400 MG CAP PO SCH (09:45)
[2024-12-16] MEDS: APIXABAN 5 MG TAB PO SCH (09:46)
[2024-12-16] MEDS: TAMSULOSIN 0.4 MG CAP.ER.24H PO SCH (09:53)
[2024-12-16] MEDS: THIAMINE 100 MG TAB PO SCH (09:53)
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
[2024-12-16] MEDS: HYDROmorphone 1 MG/ML 1 ML SYRINGE IVP STA (13:27)
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
--- NOTE | 2024-12-16 14:18 | CT ---
EXAMINATION TYPE: CT abdomen pelvis wo con DATE OF EXAM: 12/16/2024 COMPARISON: CTA chest abdomen pelvis dated 06/11/2024 CLINICAL INDICATION: Male, 74 years old with history of abdominal pain; PHH, Abdominal pain TECHNIQUE: CT scan of the abdomen and pelvis is performed without oral or IV contrast. CT DLP: 651.[address] CTDI: mGy Automated exposure control for dose reduction was used. FINDINGS: Within the limitations of a non-contrast study, the following observations are made. There are large bilateral pleural effusions and adjacent lower lobe opacities consistent with noemy sive atelectasis or pneumonia. The gallbladder is surgically absent. There is no biliary ductal dilatation. There is no organomegaly of the liver, pancreas, spleen or adrenal glands. There are no renal calcifications or hydronephrosis. The caliber of the abdominal aorta is normal and there is no retroperitoneal adenopathy or hemorrhage . The bowel loops are normal in caliber is no evidence of obstruction. No inflammatory changes are iden tified in the mesentery. There is a small amount of scattered ascites adjacent to the liver, spleen a nd in the pelvis. There is no free intraperitoneal air. There is no pelvic mass, free fluid, abscess or adenopathy. There is a Lozano catheter in urinary brianna dder. There is mild prostatic hypertrophy with prostatic calcification. The osseous structures and soft tissues are unremarkable. IMPRESSION: 1. Large bilateral pleural effusions and bibasilar pneumonia or compressive atelectasis. 2. Small scattered ascitic fluid. 3. Prostatic hypertrophy. [facility], , 12/16/2024 2:16 PM
[2024-12-16] MEDS: ATROPINE SULFATE 0.1 MG/ML 10ML SYRINGE IV STA ×2 (16:25→16:27)
[2024-12-16] MEDS: EPINEPHrine 10 ML SYRINGE (0.1 MG/ML) IV STA (16:45)
--- NOTE | 2024-12-16 17:37 | CA ---
Transthoracic Echo Report Name: Brad Munoz Age: 74 Gender: M : 1950 Exam Date: 12/16/2024 13:38 Exam Location: [facility] Ht (in): 67 Wt (lb): 160 Ordering Physician: Ml Campos Attending/Referring Phys: [id number], [facility] [employer] [employer] Noemi Luong RDCS Procedure CPT: Indications: LVF, was 20-25% Cardiac Hx: Technical Quality: Fair Contrast 1: Definity Total Dose (mL): 2 Contrast 2: Total Dose (mL): MEASUREMENTS (Male / Female) Normal Values 2D ECHO LV Diastolic Diameter PLAX 5.0 cm 4.2 - 5.9 / 3.9 - 5.3 cm LV Systolic Diameter PLAX 4.4 cm IVS Diastolic Thickness 1.2 cm 0.6 - 1.0 / 0.6 - 0.9 cm LVPW Diastolic Thickness 1.1 cm 0.6 - 1.0 / 0.6 - 0.9 cm LV Relative Wall Thickness 0.5 RV Internal Dim ED PLAX 2.1 cm LA Systolic Diameter LX 4.1 cm 3.0 - 4.0 / 2.7 - 3.8 cm M-MODE Aortic Root Diameter MM 3.0 cm LA Systolic Diameter MM 4.2 cm LA Ao Ratio MM 1.4 AV Cusp Separation MM 1.6 cm FINDINGS Left Ventricle Left ventricular ejection fraction is estimated at 5-10%. Mildly increased septal wall thickness. Severely reduced global left ventricular systolic function. Right Ventricle Right Atrium Left Atrium Mildly increased left atrial diameter. Mitral Valve Aortic Valve Tricuspid Valve Pulmonic Valve Pericardium Left pleural effusion. Aorta CONCLUSIONS Limited echo. Definity ECHO contrast used for improved visualization of the endocardial borders (inadequate visualization of two or more contiguous segments). Severely impaired left ventricular systolic function with severe global hypokinesis Previewed by: Dr. Diane Rosa MD (Electronically Signed) Final Date: 16 December 2024 17:36
[2024-12-16 17:51] LABS: Glucose,Whole Blood 122 mg/dL (70-110)
[2024-12-16 18:09] LABS: ABG Base Excess -8.9 mmol/L; ABG HCO3 18 mmol/L (21-25); ABG Oxygen Saturation 99.8 % (94-97); ABG PCO2 44 mmHg (35-45); ABG PH 7.23 (7.35-7.45); ABG PO2 234 mmHg (83-108); ABG TCO2 20 mmol/L (19-24); Allen Test Performed? Yes
[2024-12-16] MEDS: DOPamine DRIP 800 MG in DEXTROSE/WATER 1 250ML.BAG IV SCH (18:33)
--- NOTE | 2024-12-16 20:04 | XR ---
EXAMINATION TYPE: XR chest 1V portable DATE OF EXAM: 12/16/2024 CLINICAL INDICATION: Male, 74 years old with history of Tube placement, progress study. TECHNIQUE: Single AP portable supine view of the chest is obtained. COMPARISON: Chest x-ray from one day earlier FINDINGS: There is new endotracheal tube terminating at inferior clavicular margin approximately 4 t o 5 cm above the toya. There is a new orogastric tube extending below diaphragm. There is new left subclavian central venous catheter terminating at SVC. No pneumothorax is seen. Persistent cardiomegaly with small to moderate-sized bilateral pleural effusions and central vascular congestion. Osseous structures are intact. IMPRESSION: 1. New tubes and lines are satisfactory in position. 2. Persistent cardiomegaly with central vascular congestion and small to moderate-sized bilateral ple ural effusions consistent with CHF exacerbation/fluid overload state. [facility], , 12/16/2024 8:02 PM
[2024-12-16 20:19] LABS: Glucose,Whole Blood 134 mg/dL (70-110)
[2024-12-16] MEDS: DOBUTamine DRIP 500 MG in DEXTROSE/WATER 1 250ML.BAG IV SCH (20:33)
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
--- NOTE | 2024-12-16 22:24 | P.PCN ---
Date of Procedure: 12/16/24 Preoperative Diagnosis: Acute CHF exacerbation, respiratory failure Postoperative Diagnosis: Same Procedure(s) Performed: Triple-lumen catheter insertion Arterial line catheter insertion Anesthesia: local Surgeon: Ricky German Estimated Blood Loss (ml): 0 Pathology: other Condition: critical Disposition: ICU Operative Findings: Arterial line insertion Indication: Hemodynamic monitoring. A time-out was completed verifying correct patient, procedure, site, positioning , and implant(s) or special equipment if applicable. The patients left groin was prepped and draped in sterile fashion. 1% Lidocaine was used to anesthetize the area. An 18G Arrow arterial line was introduced into the femoral artery. The catheter was threaded over the guide wire and the needle was removed with appropriate pulsatile blood return. Blood loss was minimal. The catheter was then sutured in place to the skin and a sterile dressing applied. Perfusion to the extremity distal to the point of catheter insertion was checked and found to be adequate. The patient tolerated the procedure well and there were no complications. Central line insertion Indication: Hemodynamic monitoring/Intravenous access. A time-out was completed verifying correct patient, procedure, site, po sitioning, and implant(s) or special equipment if applicable. The patient was placed in a dependent position appropriate for triple lumen catheter placement based on the vein to be cannulated. The patient's left subclavian area was prepped and draped in sterile fashion. 1% Lidocaine was used to anesthetize the surrounding skin area. A triple lumen 9F Cordis catheter was introduced into the subclavian vein using Seldinger technique. The catheter was threaded smoothly over the guide wire and appropriate blood return was obtained. Each lumen of the catheter was evacuated of air and flushed with sterile saline. The catheter was then sutured in place to the skin and a sterile dressing applied. Perfusion to the extremity distal to the point of catheter insertion was checked and found to be adequate.
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
[2024-12-17] MEDS: traZODone HCL 50 MG TAB PO SCH (00:16)
[2024-12-17] MEDS: ATORVASTATIN 40 MG TAB PO SCH (00:16)
[2024-12-17] MEDS: CHLORHEXIDINE GLUCONATE 15 ML CUP MUCOUS MEM SCH (00:16)
[2024-12-17 03:47] LABS: ABG HCO3 20 mmol/L (21-25); ABG Oxygen Saturation >100.0 % (94-97); ABG PCO2 30 mmHg (35-45); ABG PH 7.42 (7.35-7.45); ABG PO2 242 mmHg (83-108); ABG TCO2 21 mmol/L (19-24)
[2024-12-17 03:49] LABS: Allen Test Performed? no
[2024-12-17 04:09] LABS: Basophils % (A) 0 %; Eosinophils % (A) 0 %; HCT 38.3 % (39.0-53.0); HGB 12.2 gm/dL (13.0-17.5); Hypochromasia Slight; Lymphocytes % (A) 15 %; MCH 31.5 pg (25.0-35.0); MCHC 31.7 g/dL (31.0-37.0); MCV 99.3 fL (80.0-100.0); Monocytes # (A) 0.5 k/uL (0-1.0); Monocytes % (A) 8 %; Neutrophils # (A) 4.9 k/uL (1.3-7.7); Neutrophils % (A) 75 %; Platelet Count 239 k/uL (150-450); RBC 3.86 m/uL (4.30-5.90); RDW 13.8 % (11.5-15.5); WBC 6.5 k/uL (3.8-10.6)
[2024-12-17 04:19] LABS: ALT 84 U/L (4-49); AST 85 U/L (17-59); African American GFR (CKD) 43 (>60 ml/min/1.73 sqM); Albumin 3.2 g/dL (3.5-5.0); Alkaline Phosphatase 73 U/L (38-126); Anion Gap 10 mmol/L; Blood Urea Nitrogen 27 mg/dL (9-20); Calcium 8.8 mg/dL (8.4-10.2); Carbon Dioxide 19 mmol/L (22-30); Chloride 102 mmol/L (98-107); Glucose 79 mg/dL (74-99); Non-African American GFR(CKD) 37 (>60 ml/min/1.73 sqM); Potassium 4.3 mmol/L (3.5-5.1); Sodium 131 mmol/L (137-145); Total Bilirubin 1.1 mg/dL (0.2-1.3); Total Protein 6.5 g/dL (6.3-8.2)
--- NOTE | 2024-12-17 07:47 | XR ---
EXAMINATION TYPE: XR chest 1V portable DATE OF EXAM: 12/17/2024 5:32 AM COMPARISON: Chest radiographs from 12/16/2024 CLINICAL INDICATION: Male, 74 years old with history of Tube placement; TECHNIQUE: XR chest 1V portable Frontal view of the chest. FINDINGS: Lungs/Pleura: Multifocal airspace opacities. No evidence of pneumothorax or pleural effusion. Pulmonary vascularity: Unremarkable. Heart/mediastinum: Cardiomediastinal silhouette is unremarkable. Musculoskeletal: No acute osseous pathology. Other findings: None Lines/Tubes: Endotracheal tube with distal tip 5.5 cm above the toya. Nasogastric tube with its distal tip and side-port projecting under the diaphragm. Left central venous catheter with distal tip at the cavoatrial junction. IMPRESSION: Cardiomegaly, pulmonary vascular congestion and bilateral pleural effusions. Correlate with BNP for c ongestive heart failure. [facility], , 12/17/2024 7:45 AM
--- NOTE | 2024-12-17 08:26 | PCN ---
PROCEDURE NOTE PROCEDURE PERFORMED: Temporary transvenous pacemaker. INDICATIONS: This is a 74-year-old gentleman with history of alcohol abuse, nonischemic cardiomyopathy with severe LV dysfunction, history of congestive heart failure, atrial fibrillation, recent cardiac catheterization that did not reveal significant CAD, presented to the hospital with symptoms of chest pain and shortness of breath, was in atrial fibrillation with rapid ventricular rate. He was on IV Cardizem. After my initial evaluation, I stopped the Cardizem. He was on amiodarone and beta blockers. Around 1 o'clock, he apparently became very bradycardic. An A-team was called. They thought it was a vasovagal episode. I was not informed about it. Around 3:30 this afternoon, the ER nurse calls me, stating that the patient is in atrial fibrillation with episodes of very slow ventricular rate with heart rates dropping into the 20s and he is symptomatic with it. I advised the patient to undergo emergent temporary transvenous pacemaker. I told them to start the patient on dopamine. 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 His heart rate was in the 60s and 70s with the dopamine and he was hemodynamically stable and was oxygenating well. PROCEDURE NOTE: After obtaining informed consent, temporary transvenous pacemaker was performed via the right femoral vein. I obtained right femoral venous access and placed a sheath and a temporary transvenous pacemaker was floated into the right ventricle under fluoroscopic guidance. We obtained adequate pacing and sensing thresholds and patient will be admitted to the ICU. I have asked the hosiery bagger to see if we can either do a pacemaker or a defibrillator on him. He is going to look at his state and make a decision. I am going to stop the amiodarone and hold the metoprolol at this time. MMODL / IJN: [id number] /
[2024-12-17] MEDS: NOREPINEPHRINE 4 MG in SODIUM CHLORIDE 0.9% 250 ML IV SCH (09:52)
[2024-12-17] MEDS: FUROSEMIDE 10 MG/ML 2 ML VIAL IV ONE (09:52)
[2024-12-17] MEDS: FOLIC ACID 1 MG TAB PO SCH (09:59)
[2024-12-17] MEDS: CHOLECALCIFEROL 25 MCG (1000 IU) TABLET PO SCH (09:59)
[2024-12-17] MEDS: ESCITALOPRAM 10 MG TAB PO SCH (10:56)
[2024-12-17 11:01] LABS: Basophils % (A) 0 %; Eosinophils # (A) 0.1 k/uL (0-0.7); Eosinophils % (A) 1 %; HCT 39.8 % (39.0-53.0); HGB 12.2 gm/dL (13.0-17.5); Hypochromasia Slight; Lymphocytes # (A) 1.2 k/uL (1.0-4.8); Lymphocytes % (A) 14 %; MCH 30.4 pg (25.0-35.0); MCHC 30.6 g/dL (31.0-37.0); MCV 99.4 fL (80.0-100.0); Mean Platelet Volume 7.5; Monocytes # (A) 0.6 k/uL (0-1.0); Monocytes % (A) 7 %; Neutrophils # (A) 6.1 k/uL (1.3-7.7); Neutrophils % (A) 76 %; Platelet Count 239 k/uL (150-450); RDW 13.8 % (11.5-15.5)
[2024-12-17 11:42] LABS: Glucose,Whole Blood 81 mg/dL (70-110)
[2024-12-17 12:23] LABS: Urine Alcohol Negative (Negative)
[2024-12-17 12:24] LABS: Urine Barbiturate Negative (Negative); Urine Cocaine Positive (Negative); Urine Methadone Negative (Negative); Urine Opiates Positive (Negative); Urine Phencyclidine Negative (Negative)
[2024-12-17] MEDS: METOPROLOL TARTRATE 25 MG TAB PO SCH (13:11)
--- NOTE | 2024-12-17 13:23 | P.PN ---
Subjective Progress Note Date: 12/17/24 patient is a 74-year-old gentleman past medical history significant for hypertension, hyperlipidemia, systolic CHF, paroxysmal A-fib, who presents the ER because of chest pain and shortness of breath. Patient was admitted in the hospital in November at which time patient was found to have cardiomyopathy and had cardiac cath done which showed normal coronaries. Patient was discharged to rehab facility from where he was discharged home a couple of days back. Patient stated ever since discharge he has been having chest pain in the central location, pressure-like, nonradiating, no aggravating or relieving factor associated with this chest pain. patient also complains of shortness of breath Present on exertion. Patient denies any fever or chills. There is no complaint of orthopnea or PND. Denies any swelling of feet. Because of this shortness of breath, patient came to the ER Initial lab work done in the ER showed WBC 8.2, hemoglobin 13.3, platelet count 282, sodium 139, potassium 5.4, BUN 20, creatinine 1.19, calcium 9.7, bilirubin 1.4, AST 23, ALT 21, troponin 0.012 Urine done showed large amount of leukocyte Estrace, urine WBC 182 EKG done in the ER showed heart rate of 159, irregular in rate and rhythm, no ST segment elevation or depression seen, no T-wave inversions seen. Chest x-ray done in the ER showed cardiomegaly, pulm vascular congestion and bilateral pleural effusion Patient admitted to internal medicine service 12/17. Patient seen and examined. Patient had a rapid response called yesterday afternoon for bradycardia at which time patient AV node blocking agents were discontinued. Patient continued to be bradycardic, cardiology took patient for cardiac catheter for temporary pacemaker insertion. Patient was transferred to ICU where patient was later on intubated because of respiratory distress REVIEW OF SYSTEMS: Review of system cannot be obtained as patient is intubated PHYSICAL EXAMINATION: GENERAL: The patient is intubated HEENT: Pupils are round and equally reacting to light. EOMI. No scleral icterus. No conjunctival pallor. Normocephalic, atraumatic. No pharyngeal erythema. No thyromegaly. CARDIOVASCULAR: S1 and S2 present. No murmurs, rubs, or gallops. PULMONARY: Diminished breath sounds at bases, crackles audible bilateral ABDOMEN: Soft, nontender, nondistended, normoactive bowel sounds. No palpable organomegaly. MUSCULOSKELETAL: No joint swelling or deformity. EXTREMITIES: No cyanosis, clubbing, or pedal edema. NEUROLOGICAL: Gross neurological examination did not reveal any focal deficits. SKIN: No rashes. Assessment and plan Cardiogenic shock Bradycardia Acute hypoxic respiratory failure Acute on chronic systolic CHF, new echo done shows EF of 5 to 10% A-fib with RVR UTI Hyperkalemia History of hyperlipidemia History of hypertension History of chronic systolic CHF with EF of 20-25%, repeat echo shows EF of 5 to 10% Anxiety Depression Monitor vital signs Monitor CBC Monitor CMP Continue telemetry monitoring Aggressive bronchopulmonary hygiene Continue vent management Avoid AV julieth blocking agents Continue transvenous pacing at rate of 8 Continue IV Rocephin Continue dobutamine and Lev[facility]hed [facility] following ID following Labs and medication were reviewed.. Continue same treatment. Continue with symptomatic treatment. Resume home medication. Monitor labs and vitals. DVT and GI prophylaxis. Further recommendations as per clinical course of the patient Dictation was produced using [id number] dictation software. please excuse any grammatical, word or spelling errors. Objective - Vital Signs Vital signs: Vital Signs Temp 97.7 F 12/17/24 04:00 Pulse 105 H 12/17/24 07:00 Resp 18 12/17/24 07:00 BP 129/100 12/17/24 07:00 Pulse Ox 100 12/17/24 07:00 FiO2 40 12/17/24 07:55 Intake & Output 12/16/24 12/17/24 12/17/24 18:59 06:59 18:59 Intake Total 387.107 20 Output Total 200 1540 25 Balance -200 -1152.893 -5 Weight 72.575 kg Intake: Intake, IV Titration 387.107 20 Amount Sodium Chloride 0.9% 1, 220 20 000 ml @ 20 mls/hr IV . Q24H [facility] Rx#:[id number] propofoL 1,000 mg In 167.107 Empty Bag 1 bag @ 15 MCG/ KG/MIN 6.532 mls/hr IV . [id number] [facility] Rx#:[id number] Output: Gastric Drainage 100 Urine 200 1440 25 Other: Voiding Method Indwelling Catheter Indwelling Catheter # Bowel Movements 0 ABP, PAP, CO, CI - Last Documented Arterial Blood Pressure 135/64 - Labs CBC & Chem 7: 12/17/24 10:40 12/17/24 03:48 Labs: Abnormal Lab Results - Last 24 Hours (Table) 12/16/24 12/16/24 12/16/24 Range/Units 17:49 18:07 20:17 RBC (4.30-5.90) m/uL Hgb (13.0-17.5) gm/dL Hct (39.0-53.0) % ABG pH 7.23 L (7.35-7.45) ABG pCO2 (35-45) mmHg ABG pO2 234 H (83-108) mmHg ABG HCO3 18 L (21-25) mmol/L ABG O2 Saturation 99.8 H (94-97) % Hemoglobin 12.6 L (13.0-17.5) gm/dL Sodium (137-145) mmol/L Carbon Dioxide (22-30) mmol/L BUN (9-20) mg/dL Creatinine (0.66-1.25) mg/dL POC Glucose (mg/dL) 122 H 134 H (70-110) mg/dL AST (17-59) U/L ALT (4-49) U/L Albumin (3.5-5.0) g/dL 12/17/24 12/17/24 12/17/24 Range/Units 03:42 03:48 03:48 RBC 3.86 L (4.30-5.90) m/uL Hgb 12.2 L (13.0-17.5) gm/dL Hct 38.3 L (39.0-53.0) % ABG pH (7.35-7.45) ABG pCO2 30 L (35-45) mmHg ABG pO2 242 H (83-108) mmHg ABG HCO3 20 L (21-25) mmol/L ABG O2 Saturation >100.0 H (94-97) % Hemoglobin 12.2 L (13.0-17.5) gm/dL Sodium 131 L (137-145) mmol/L Carbon Dioxide 19 L (22-30) mmol/L BUN 27 H (9-20) mg/dL Creatinine 1.77 H (0.66-1.25) mg/dL POC Glucose (mg/dL) (70-110) mg/dL AST 85 H (17-59) U/L ALT 84 H (4-49) U/L Albumin 3.2 L (3.5-5.0) g/dL
--- NOTE | 2024-12-17 14:43 | P.PN ---
Subjective Progress Note Date: 12/17/24 Principal diagnosis: Reason for follow-up is a UTI Patient is a 74-year-old male with a past medical history significant for COPD hypertension prostate disorder anxiety depression history of heavy alcohol abuse presenting to the hospital for evaluation of chest pain and shortness of breath, patient did have significant breath arrhythmia requiring transvenous pacer intubation admission to ICU also have a positive UA concerning for UTI prompting this consultation. On today's evaluation that is 12/17/2024, the patient continues to be afebrile, the patient is on ventilator FiO2 to 40% no significant purulent Through the ET patient requiring any pressor support as reported by the nursing staff. Patient white count 8.0 creatinine is 1.77 cultures currently pending Objective - Vital Signs Vital signs: Vital Signs Temp 97.7 F 12/17/24 04:00 Pulse 105 H 12/17/24 07:00 Resp 18 12/17/24 07:00 BP 129/100 12/17/24 07:00 Pulse Ox 100 12/17/24 07:00 FiO2 40 12/17/24 11:19 Intake & Output 12/16/24 12/17/24 12/17/24 18:59 06:59 18:59 Intake Total 387.107 20 Output Total 200 1540 25 Balance -200 -1152.893 -5 Weight 72.575 kg 72.575 kg Intake: Intake, IV Titration 387.107 20 Amount Sodium Chloride 0.9% 1, 220 20 000 ml @ 20 mls/hr IV . Q24H [facility] Rx#:[id number] propofoL 1,000 mg In 167.107 Empty Bag 1 bag @ 15 MCG/ KG/MIN 6.532 mls/hr IV . [id number] [facility] Rx#:[id number] Output: Gastric Drainage 100 Urine 200 1440 25 Other: Voiding Method Indwelling Catheter Indwelling Catheter # Bowel Movements 0 ABP, PAP, CO, CI - Last Documented Arterial Blood Pressure 135/64 - Exam GENERAL DESCRIPTION: An elderly male intubated on the vent RESPIRATORY SYSTEM: Unlabored breathing , decreased breath sounds at bases HEART: S1 S2 regular rate and rhythm , ABDOMEN: Soft , no tenderness EXTREMITIES: No edema feet - Labs CBC & Chem 7: 12/17/24 10:40 12/17/24 03:48 Labs: Abnormal Lab Results - Last 24 Hours (Table) 12/16/24 12/16/24 12/16/24 Range/Units 17:49 18:07 20:17 RBC (4.30-5.90) m/uL Hgb (13.0-17.5) gm/dL Hct (39.0-53.0) % MCHC (31.0-37.0) g/dL ABG pH 7.23 L (7.35-7.45) ABG pCO2 (35-45) mmHg ABG pO2 234 H (83-108) mmHg ABG HCO3 18 L (21-25) mmol/L ABG O2 Saturation 99.8 H (94-97) % Hemoglobin 12.6 L (13.0-17.5) gm/dL Sodium (137-145) mmol/L Carbon Dioxide (22-30) mmol/L BUN (9-20) mg/dL Creatinine (0.66-1.25) mg/dL POC Glucose (mg/dL) 122 H 134 H (70-110) mg/dL AST (17-59) U/L ALT (4-49) U/L Albumin (3.5-5.0) g/dL Urine Opiates Screen (Negative) Urine Cocaine Screen (Negative) 12/17/24 12/17/24 12/17/24 Range/Units 03:42 03:48 03:48 RBC 3.86 L (4.30-5.90) m/uL Hgb 12.2 L (13.0-17.5) gm/dL Hct 38.3 L (39.0-53.0) % MCHC (31.0-37.0) g/dL ABG pH (7.35-7.45) ABG pCO2 30 L (35-45) mmHg ABG pO2 242 H (83-108) mmHg ABG HCO3 20 L (21-25) mmol/L ABG O2 Saturation >100.0 H (94-97) % Hemoglobin 12.2 L (13.0-17.5) gm/dL Sodium 131 L (137-145) mmol/L Carbon Dioxide 19 L (22-30) mmol/L BUN 27 H (9-20) mg/dL Creatinine 1.77 H (0.66-1.25) mg/dL POC Glucose (mg/dL) (70-110) mg/dL AST 85 H (17-59) U/L ALT 84 H (4-49) U/L Albumin 3.2 L (3.5-5.0) g/dL Urine Opiates Screen (Negative) Urine Cocaine Screen (Negative) 12/17/24 12/17/24 Range/Units 07:10 10:40 RBC 4.00 L (4.30-5.90) m/uL Hgb 12.2 L (13.0-17.5) gm/dL Hct (39.0-53.0) % MCHC 30.6 L (31.0-37.0) g/dL ABG pH (7.35-7.45) ABG pCO2 (35-45) mmHg ABG pO2 (83-108) mmHg ABG HCO3 (21-25) mmol/L ABG O2 Saturation (94-97) % Hemoglobin (13.0-17.5) gm/dL Sodium (137-145) mmol/L Carbon Dioxide (22-30) mmol/L BUN (9-20) mg/dL Creatinine (0.66-1.25) mg/dL POC Glucose (mg/dL) (70-110) mg/dL AST (17-59) U/L ALT (4-49) U/L Albumin (3.5-5.0) g/dL Urine Opiates Screen Positive A (Negative) Urine Cocaine Screen Positive A (Negative) Assessment and Plan (1) UTI (urinary tract infection) Current Visit: Yes Status: Acute Code(s): N39.0 - URINARY TRACT INFECTION, SITE NOT SPECIFIED SNOMED Code(s): 43593733 Plan: 1patient presented to hospital with increasing shortness of breath which is more likely underlying cardiac etiology as patient noticed to be in A-fib with RVR subsequent getting to bradycardia arrhythmia for the patient being transferred to ICU as per discussion with admitting physician 2-patient also have a significantly positive UA some mental status changes history of prostate disorder with prostatomegaly seen on CT component of UTI not entirely excluded likely due to gram-negative pathogen 3-patient is currently being treated with Rocephin 2 g daily while waiting for the culture to finalize and monitor clinical course closely Dictation was produced using [employer] dictation software. please excuse any grammatical, word or spelling errors. Time with Patient: Less than 30
--- NOTE | 2024-12-17 14:51 | P.PN ---
Subjective Progress Note Date: 12/17/24 74-year-old male patient, known history of severe cardiomyopathy with an ejection fraction of 20%, nonischemic cardiomyopathy, known history of chronic atrial fibrillation, mitral regurgitation, hypertension hyperlipidemia and history of alcoholism. Cardiac catheterization done during recent hospitaliza tion showed normal coronaries. Patient presented to the emergency department with worsening shortness of breath. No reported chest pain. No leg edema. In the emergency, the patient was found to be in A-fib RVR, started on IV heparin and Cardizem drip for rate control. Subsequently, the patient started having episodes of bradycardia. Cardizem drip was discontinued. The patient was having significant bradycardia with hypotension and his heart rate was in the low 30s, A-fib rhythm. Elevated echocardiogram was done and it showed further impairment of the LV function with an EF of around 5 to 10%. There was global reduction of the LV systolic function. Cardiology was involved and the patient was taken to the [facility] and the patient was given a TVP set at the rate of 80. Following that, the patient got moved to the intensive care unit. Upon arrival, the patient was provided lethargic, short of breath, hypotensive. He was already on dopamine which is running at 5 mcg/kg/min. Blood gas showed a pH of 7.23 with a pCO2 of 43.8 and P02 234 and this was done on 100 % NRB. Based on the overall condition, the patient was intubated placed on ventilator. He is on propofol at 35 mcg/kg/min. UO is 100 cc/hr. He is on mechanical ventilator and he is on AC at a rate of 18 , TV 450, FI02 60 and PEEP of 10. Blood work showed a white cell count of 8.3, hemoglobin of 13.3 and a platelet count of 282. The patient has a sodium level of 135 potassium is at 5.4, bicarb is at 16, BUN is 20 with a creatinine of 1.1. proBNP level is more than 10,000. TSH is 4.4. LFTs are normal. UA is positive for white cells and leukocyte esterase with many bacteria. Patient was started on IV Rocephin. Postintubation chest x-ray shows evidence of pulmonary edema and bilateral pleural effusion.. Tube is in good location. There is evidence of pulm vascular congestion and moderate-sized bilateral pleural effusions. A triple-lumen catheter and arterial line was established. On 12/17/2024, the patient is being seen for a follow-up. The patient remains intubated on mechanical ventilator. This morning, the patient had a propofol running at 50 mcg/kg/min. The patient is calm and comfortable and successful mechanical ventilator. His assist-control mode at rate of 18, tidal volume of 450, FiO2 of 40% and PEEP of 10. The blood gas from today shows a pH of 7.42 with a pCO2 of 30 and pO2 of 242. Chest x-rayIs showing pulmonary vascular congestion/edema consistent with CHF. The patient has a TVP placed and the TVP is currently at a backup rate of 60. Meanwhile, the patient heart rate is improved and currently his heart rate is in the low 90s 100 range, still in atrial fibrillation the patient currently is on dobutamine 5 mcg/kg/min. Urine output is adequate. Afebrile. No pressors for now. White cell count is at 8 with a hemoglobin 12.2 and a platelet count of 239. Sodium is at 131, potassium is at 4.3, bicarb is at 19, BUN is 27 with a creatinine of 1.7 and the patient has sustained acute kidney injury. LFTs are mildly elevated including a mild elevation of the AST and ALT. Urine drug screen is positive for cocaine. The patient remains on IV Rocephin on an empiric basis pending further cultures. Objective - Vital Signs Vital signs: Vital Signs Temp 97.7 F 12/17/24 04:00 Pulse 105 H 12/17/24 07:00 Resp 18 12/17/24 07:00 BP 129/100 12/17/24 07:00 Pulse Ox 100 12/17/24 07:00 FiO2 40 12/17/24 07:55 Intake & Output 12/16/24 12/17/24 12/17/24 18:59 06:59 18:59 Intake Total 387.107 20 Output Total 200 1540 25 Balance -200 -1152.893 -5 Weight 72.575 kg Intake: Intake, IV Titration 387.107 20 Amount Sodium Chloride 0.9% 1, 220 20 000 ml @ 20 mls/hr IV . Q24H [facility] Rx#:[id number] propofoL 1,000 mg In 167.107 Empty Bag 1 bag @ 15 MCG/ KG/MIN 6.532 mls/hr IV . [id number] [facility] Rx#:[id number] Output: Gastric Drainage 100 Urine 200 1440 25 Other: Voiding Method Indwelling Catheter Indwelling Catheter # Bowel Movements 0 ABP, PAP, CO, CI - Last Documented Arterial Blood Pressure 135/64 - Exam The patient appeared well nourished and normally developed. Vital signs as documented. The patient is currently sedated, calm and comfortable on propofol. Orogastric and orotracheal tube are both in place Head exam is unremarkable. No scleral icterus or corneal arcus noted. Neck is with jugular venous distension, thyromegaly, or carotid bruits. Carotid upstrokes are brisk bilaterally. Triple-lumen catheter is seen in the left sub clavian Lungs are clear to auscultation and percussion. Breath sounds are diminished in lung base bilaterally Cardiac exam reveals the PMI to be normally sized and situated. Rhythm is paced in atrial fibrillation and the patient has a backup TVP at rate of 60. First and second heart sounds normal. No murmurs, rubs or gallops. Patient is in atrial fibrillation Abdominal exam reveals normal bowel sounds, no masses, no organomegaly and no aortic enlargement. Extremities are nonedematous and both femoral and pedal pulses are quite diminished in lower extremities bilaterally. Femoral pulses are present. Brachial pulses are present. Examination of the skin revealed no evidence of significant rashes, suspicious appearing nevi or other concerning lesions. Neurologically, the patient is sedated on propofol - Labs CBC & Chem 7: 12/17/24 10:40 12/17/24 03:48 Labs: Abnormal Lab Results - Last 24 Hours (Table) 12/16/24 12/16/24 12/16/24 Range/Units 17:49 18:07 20:17 RBC (4.30-5.90) m/uL Hgb (13.0-17.5) gm/dL Hct (39.0-53.0) % ABG pH 7.23 L (7.35-7.45) ABG pCO2 (35-45) mmHg ABG pO2 234 H (83-108) mmHg ABG HCO3 18 L (21-25) mmol/L ABG O2 Saturation 99.8 H (94-97) % Hemoglobin 12.6 L (13.0-17.5) gm/dL Sodium (137-145) mmol/L Carbon Dioxide (22-30) mmol/L BUN (9-20) mg/dL Creatinine (0.66-1.25) mg/dL POC Glucose (mg/dL) 122 H 134 H (70-110) mg/dL AST (17-59) U/L ALT (4-49) U/L Albumin (3.5-5.0) g/dL 12/17/24 12/17/24 12/17/24 Range/Units 03:42 03:48 03:48 RBC 3.86 L (4.30-5.90) m/uL Hgb 12.2 L (13.0-17.5) gm/dL Hct 38.3 L (39.0-53.0) % ABG pH (7.35-7.45) ABG pCO2 30 L (35-45) mmHg ABG pO2 242 H (83-108) mmHg ABG HCO3 20 L (21-25) mmol/L ABG O2 Saturation >100.0 H (94-97) % Hemoglobin 12.2 L (13.0-17.5) gm/dL Sodium 131 L (137-145) mmol/L Carbon Dioxide 19 L (22-30) mmol/L BUN 27 H (9-20) mg/dL Creatinine 1.77 H (0.66-1.25) mg/dL POC Glucose (mg/dL) (70-110) mg/dL AST 85 H (17-59) U/L ALT 84 H (4-49) U/L Albumin 3.2 L (3.5-5.0) g/dL Assessment and Plan Plan: Acute respiratory failure essentially secondary underlying cardiogenic shock. The patient remains intubated on mechanical ventilator. There has been interval improvement in oxygenation and acid-base status. Acute exacerbation of chronic CHF with secondary shortness of breath and hypoxic respiratory failure. Nonischemic cardiomyopathy with severe impairment of LV function and follow-up echocardiogram showing an EF of around 5 to 10%. Cardiac catheterization shows no significant coronary artery disease Atrial fibrillation with RVR with subsequent bradycardia requiring insertion of a temporary venous pacemaker and TVP set at rate of 80. The patient is currently in atrial fibrillation. The patient has a TVP backup. Acute pulmonary edema and bilateral pleural effusion secondary to above Moderate mitral regurgitation Acute kidney injury, creatinine is up to 1.7 Substance abuse/cocaine Metabolic acidosis, with a mild anion gap Alcoholism Hypertension UTI Hyperlipidemia BPH Hyperlipidemia Plan Keep the patient on propofol Continue ventilator support, dropped FiO2 down to 40%, current rhythm is atrial fibrillation Continue TVP at rate of 80 Stop the dopamine and start the patient on dobutamine 5 mcg/kg/min and utilize norepinephrine should there be any issues with hypotension Patient was started on low-dose metoprolol Continue anticoagulation with Eliquis Hold Entresto and lisinopril and Farxiga for now IV Rocephin as an empiric antibiotic coverage Echo was noted Cardiology's been consulted IV fluids to KVO Will follow Critical care evaluation. Prognosis poor based on above-mentioned comorbidities. This evaluation was done and 33 minutes. Time with Patient: Greater than 30
[2024-12-17 16:30] LABS: Glucose,Whole Blood 78 mg/dL (70-110)
[2024-12-17 18:01] LABS: Glucose,Whole Blood 70 mg/dL (70-110)
--- NOTE | 2024-12-17 22:23 | PN ---
PROGRESS NOTE SUBJECTIVE: Brad is a 74-year-old gentleman with history of cocaine and EtOH abuse, dilated cardiomyopathy with severe LV dysfunction. Cardiac catheterization in the past did not reveal any significant obstructive CAD and history of atrial fibrillation, who presented to hospital with atrial fibrillation with rapid ventricular rate, subsequently developed symptomatic bradycardia and underwent a temporary transvenous pacemaker by me. His respiratory status deteriorated and had to be intubated and on vent. This morning, he is intubated on the ventilator. Heart rate is around 110 beats per minute. Blood pressure is 130/65, respiratory rate is 18, O2 saturation is 100%. He was started on dobutamine by the [facility]izer. MEDICATIONS: The patient is on, 1. Eliquis 5 b.i.d. 2. Lipitor 40 mg daily. 3. Dobutamine. 4. Lopressor 25 b.i.d., had just been started. OBJECTIVE: VITAL SIGNS: Heart rate is 100 beats per minute, blood pressure is 130/64, respiratory rate is 18, O2 saturation is 100%. CHEST: Reveals occasional rhonchi bilaterally. HEART: Reveals first and second heart sounds. No gallop. EXTREMITIES: Reveals mild edema. Peripheral pulses are felt. Echocardiogram shows severe LV systolic dysfunction with diffuse global hypokinesis. Labs show a hemoglobin of 12.2, platelet count is 239. Blood gases reveal a pH of 7.4, pCO2 of 30, potassium is 4.3, creatinine this morning is 1.7. The patient presented with a creatinine of 1.19, but had renal failure in the past. His urine drug screen is positive for opiates and cocaine. ASSESSMENT: 1. Symptomatic bradycardia, status post temporary pacemaker. 2. Atrial fibrillation with rapid ventricular rate. 3. Cardiomyopathy with severe left ventricular systolic dysfunction, probably due to cocaine and alcohol abuse. PLAN: We will restart the metoprolol. Prognosis is guarded. The patient is not using the pacemaker at this time. MMODL / IJN: [id number] /
[2024-12-18 02:01] LABS: Glucose,Whole Blood 87 mg/dL (70-110)
[2024-12-18 04:10] LABS: ABG Base Excess -1.2 mmol/L; ABG HCO3 21 mmol/L (21-25); ABG Oxygen Saturation 99.8 % (94-97); ABG PCO2 28 mmHg (35-45); ABG PH 7.49 (7.35-7.45); ABG PO2 159 mmHg (83-108); ABG TCO2 22 mmol/L (19-24)
[2024-12-18 04:12] LABS: Allen Test Performed? No
[2024-12-18 04:26] LABS: Basophils % (A) 0 %; Eosinophils # (A) 0.1 k/uL (0-0.7); Eosinophils % (A) 1 %; HCT 38.6 % (39.0-53.0); HGB 12.3 gm/dL (13.0-17.5); Lymphocytes % (A) 16 %; MCH 31.2 pg (25.0-35.0); MCHC 31.9 g/dL (31.0-37.0); MCV 97.7 fL (80.0-100.0); Mean Platelet Volume 8.2; Monocytes # (A) 0.5 k/uL (0-1.0); Monocytes % (A) 7 %; Neutrophils # (A) 4.5 k/uL (1.3-7.7); Neutrophils % (A) 74 %; Platelet Count 225 k/uL (150-450); RBC 3.95 m/uL (4.30-5.90); RDW 14.3 % (11.5-15.5); WBC 6.1 k/uL (3.8-10.6)
[2024-12-18 04:49] LABS: African American GFR (CKD) 84 (>60 ml/min/1.73 sqM); Anion Gap 8 mmol/L; Blood Urea Nitrogen 18 mg/dL (9-20); Carbon Dioxide 21 mmol/L (22-30); Chloride 108 mmol/L (98-107); Glucose 82 mg/dL (74-99); Non-African American GFR(CKD) 73 (>60 ml/min/1.73 sqM); Potassium 3.4 mmol/L (3.5-5.1); Sodium 137 mmol/L (137-145)
[2024-12-18] MEDS ORDERED: Potassium Replacement Protocol 1 EACH MISC MISCELLANE PRN (05:34)
[2024-12-18] MEDS: POTASSIUM BICARBONATE/CIT AC 20 MEQ TABLET.EFF NG-TUBE SCH (06:39)
[2024-12-18 06:46] LABS: Glucose,Whole Blood 95 mg/dL (70-110)
--- NOTE | 2024-12-18 07:00 | XR ---
EXAMINATION TYPE: XR chest 1V portable DATE OF EXAM: 12/18/2024 4:27 AM COMPARISON: Multiple radiographs, with the most recent on 12/17/2024 TECHNIQUE: XR chest 1V portable Portable AP radiograph of the chest. CLINICAL INDICATION:Male, 74 years old with history of Tube placement; FINDINGS: Lungs/Pleura: Blunting of both costophrenic angles. Similar diffuse interstitial prominence. No pneum othorax. Heart/mediastinum: Cardiomediastinal silhouette is enlarged and stable. Lead overlies the right vent ricle. Musculoskeletal: No acute osseous pathology. Other findings: None Lines/Tubes: Endotracheal tube with distal tip 5.7 cm above the toya Nasogastric tube with its distal tip and side-port projecting under the diaphragm. Stable left subclavian approach central venous catheter distal tip terminating at the superior cavoat rial junction. Lead overlies the right ventricle. IMPRESSION: 1. Cardiomegaly, diffuse interstitial prominence and small bilateral pleural effusions. Correlate wi th BNP for congestive heart failure. Superimposed infectious process is not excluded. 2. Stable support lines and tubes. [facility], , 12/18/2024 6:58 AM
[2024-12-18] MEDS: FUROSEMIDE 10 MG/ML 4 ML VIAL IV SCH (09:37)
[2024-12-18 10:34] LABS: Appearance,Urine Clear (Clear); Bilirubin,Urine Negative (Negative); Blood,Urine Large (Negative); Color,Urine Colorless; Glucose,Urine (UA) Negative (Negative); Ketones,Urine Negative (Negative); Leukocyte Esterase,Urine Small (Negative); Mucus,Urine Rare /hpf; Nitrite,Urine Negative (Negative); Protein,Urine Negative (Negative); RBC,Urine 69 /hpf (0-5); Urobilinogen,Urine <2.0 mg/dL (<2.0); WBC,Urine 5 /hpf (0-5)
[2024-12-18] MEDS: METOPROLOL TARTRATE 25 MG TAB PO STA (10:58)
[2024-12-18 11:45] LABS: Glucose,Whole Blood 105 mg/dL (70-110)
--- NOTE | 2024-12-18 12:23 | P.PN ---
Subjective Progress Note Date: 12/18/24 74-year-old male patient, known history of severe cardiomyopathy with an ejection fraction of 20%, nonischemic cardiomyopathy, known history of chronic atrial fibrillation, mitral regurgitation, hypertension hyperlipidemia and history of alcoholism. Cardiac catheterization done during recent hospitaliza tion showed normal coronaries. Patient presented to the emergency department with worsening shortness of breath. No reported chest pain. No leg edema. In the emergency, the patient was found to be in A-fib RVR, started on IV heparin and Cardizem drip for rate control. Subsequently, the patient started having episodes of bradycardia. Cardizem drip was discontinued. The patient was having significant bradycardia with hypotension and his heart rate was in the low 30s, A-fib rhythm. Elevated echocardiogram was done and it showed further impairment of the LV function with an EF of around 5 to 10%. There was global reduction of the LV systolic function. Cardiology was involved and the patient was taken to the [facility] and the patient was given a TVP set at the rate of 80. Following that, the patient got moved to the intensive care unit. Upon arrival, the patient was provided lethargic, short of breath, hypotensive. He was already on dopamine which is running at 5 mcg/kg/min. Blood gas showed a pH of 7.23 with a pCO2 of 43.8 and P02 234 and this was done on 100 % NRB. Based on the overall condition, the patient was intubated placed on ventilator. He is on propofol at 35 mcg/kg/min. UO is 100 cc/hr. He is on mechanical ventilator and he is on AC at a rate of 18 , TV 450, FI02 60 and PEEP of 10. Blood work showed a white cell count of 8.3, hemoglobin of 13.3 and a platelet count of 282. The patient has a sodium level of 135 potassium is at 5.4, bicarb is at 16, BUN is 20 with a creatinine of 1.1. proBNP level is more than 10,000. TSH is 4.4. LFTs are normal. UA is positive for white cells and leukocyte esterase with many bacteria. Patient was started on IV Rocephin. Postintubation chest x-ray shows evidence of pulmonary edema and bilateral pleural effusion.. Tube is in good location. There is evidence of pulm vascular congestion and moderate-sized bilateral pleural effusions. A triple-lumen catheter and arterial line was established. On 12/17/2024, the patient is being seen for a follow-up. The patient remains intubated on mechanical ventilator. This morning, the patient had a propofol running at 50 mcg/kg/min. The patient is calm and comfortable and successful mechanical ventilator. His assist-control mode at rate of 18, tidal volume of 450, FiO2 of 40% and PEEP of 10. The blood gas from today shows a pH of 7.42 with a pCO2 of 30 and pO2 of 242. Chest x-rayIs showing pulmonary vascular congestion/edema consistent with CHF. The patient has a TVP placed and the TVP is currently at a backup rate of 60. Meanwhile, the patient heart rate is improved and currently his heart rate is in the low 90s 100 range, still in atrial fibrillation the patient currently is on dobutamine 5 mcg/kg/min. Urine output is adequate. Afebrile. No pressors for now. White cell count is at 8 with a hemoglobin 12.2 and a platelet count of 239. Sodium is at 131, potassium is at 4.3, bicarb is at 19, BUN is 27 with a creatinine of 1.7 and the patient has sustained acute kidney injury. LFTs are mildly elevated including a mild elevation of the AST and ALT. Urine drug screen is positive for cocaine. The patient remains on IV Rocephin on an empiric basis pending further cultures. 12/18/2024, the patient is being seen for a follow-up. Remains intubated on mechanical ventilator, currently on propofol running at 50 mcg/kg/min,, comfortable and synchronous with the mechanical ventilator which is set at a rate of 18, tidal volume of 450, FiO2 40% with a PEEP of 5. Blood gas showed pH of 7.49 with a pCO2 of 28 and pO2 of 159. He remains in atrial fibrillation, rate is controlled and the patient remains on dobutamine at 5 mcg/kg/min. TVP backup is at 50. He is on vital HP at rate of 20 cc an hour. Chest x-ray is consistent with CHF with pulm vascular congestion and edema. The white cell count is 6.1, hemoglobin 12.3, platelet count of 225, sodium is at 137, BUN is 18 with a creatinine of 1 and a serum bicarb of 21. No fever. No other significant events overnight. Objective - Vital Signs Vital signs: Vital Signs Temp 97.7 F 12/18/24 06:00 Pulse 112 H 12/18/24 07:00 Resp 18 12/18/24 07:00 BP 112/80 12/18/24 07:00 Pulse Ox 100 12/18/24 07:00 FiO2 40 12/18/24 08:00 Intake & Output 12/17/24 12/18/24 12/18/24 18:59 06:59 18:59 Intake Total 530 992.377 45 Output Total 1025 845 50 Balance -495 147.377 -5 Weight 72.575 kg 70.2 kg Intake: IV 300 275 25 0.9 300 275 25 Intake, IV Titration 220 487.377 Amount DOBUTamine DRIP 500 mg In 250 Dextrose/Water 1 250ml. bag @ 5 MCG/KG/MIN 10.886 mls/hr IV .[id number] [facility] Rx#:[id number] Sodium Chloride 0.9% 1, 20 000 ml @ 20 mls/hr IV . Q24H [facility] Rx#:[id number] propofoL 1,000 mg In 200 237.377 Empty Bag 1 bag @ 15 MCG/ KG/MIN 6.532 mls/hr IV . [id number] [facility] Rx#:[id number] Tube Feeding 10 140 20 Other 90 Output: Urine 1025 845 50 Other: Voiding Method Indwelling Catheter Indwelling Catheter ABP, PAP, CO, CI - Last Documented Arterial Blood Pressure 159/69 - Exam The patient appeared well nourished and normally developed. Vital signs as documented. The patient is currently sedated, calm and comfortable on propofol. Orogastric and orotracheal tube are both in place Head exam is unremarkable. No scleral icterus or corneal arcus noted. Neck is with jugular venous distension, thyromegaly, or carotid bruits. Carotid upstrokes are brisk bilaterally. Triple-lumen catheter is seen in the left subclavian Lungs are clear to auscultation and percussion. Breath sounds are diminished in lung base bilaterally Cardiac exam reveals the PMI to be normally sized and situated. Rhythm is paced in atrial fibrillation and the patient has a backup TVP at rate of 60. First and second heart sounds normal. No murmurs, rubs or gallops. Patient is in atrial fibrillation Abdominal exam reveals normal bowel sounds, no masses, no organomegaly and no aortic enlargement. Extremities are nonedematous and both femoral and pedal pulses are quite diminished in lower extremities bilaterally. Femoral pulses are present. Brachial pulses are present. Examination of the skin revealed no evidence of significant rashes, suspicious appearing nevi or other concerning lesions. Neurologically, the patient is sedated on propofol - Labs CBC & Chem 7: 12/18/24 04:08 12/18/24 09:56 Labs: Abnormal Lab Results - Last 24 Hours (Table) 12/17/24 12/17/24 12/18/24 Range/Units 07:10 10:40 04:04 RBC 4.00 L (4.30-5.90) m/uL Hgb 12.2 L (13.0-17.5) gm/dL Hct (39.0-53.0) % MCHC 30.6 L (31.0-37.0) g/dL ABG pH 7.49 H (7.35-7.45) ABG pCO2 28 L (35-45) mmHg ABG pO2 159 H (83-108) mmHg ABG O2 Saturation 99.8 H (94-97) % Hemoglobin 12.7 L (13.0-17.5) gm/dL Potassium (3.5-5.1) mmol/L Chloride (98-107) mmol/L Carbon Dioxide (22-30) mmol/L Urine Opiates Screen Positive A (Negative) Urine Cocaine Screen Positive A (Negative) 12/18/24 12/18/24 Range/Units 04:08 04:08 RBC 3.95 L (4.30-5.90) m/uL Hgb 12.3 L (13.0-17.5) gm/dL Hct 38.6 L (39.0-53.0) % MCHC (31.0-37.0) g/dL ABG pH (7.35-7.45) ABG pCO2 (35-45) mmHg ABG pO2 (83-108) mmHg ABG O2 Saturation (94-97) % Hemoglobin (13.0-17.5) gm/dL Potassium 3.4 L (3.5-5.1) mmol/L Chloride 108 H (98-107) mmol/L Carbon Dioxide 21 L (22-30) mmol/L Urine Opiates Screen (Negative) Urine Cocaine Screen (Negative) Assessment and Plan Plan: Acute respiratory failure essentially secondary underlying cardiogenic shock. The patient remains intubated on mechanical ventilator. There has been interval improvement in oxygenation and acid-base status. Adequate oxygenation on today's evaluation. Chest x-ray is consistent with CHF/pulmonary edema. Acute exacerbation of chronic CHF with secondary shortness of breath and hypoxic respiratory failure. Nonischemic cardiomyopathy with severe impairment of LV function and follow-up echocardiogram showing an EF of around 5 to 10%. Cardiac catheterization shows no significant coronary artery disease Atrial fibrillation with RVR with subsequent bradycardia requiring insertion of a temporary venous pacemaker and TVP set at rate of 50. The patient is currently in atrial fibrillation. Acute pulmonary edema and bilateral pleural effusion secondary to above Moderate mitral regurgitation Acute kidney injury, creatinine is back to normal Substance abuse/cocaine Metabolic acidosis, with a mild anion gap, recovered Alcoholism Hypertension UTI Hyperlipidemia BPH Hyperlipidemia Plan Keep the patient on propofol Continue ventilator support, dropped FiO2 down to 35% and dropped respiratory down to 16 Continue TVP at rate of 50 Continue dobutamine 5 mcg/kg/min and utilize norepinephrine should there be any issues with hypotension Metoprolol 50 mg p.o. twice a day Start Lasix 40 mg IV every 12 hours Continue anticoagulation with Eliquis Hold Entresto and lisinopril and Farxiga for now IV Rocephin as an empiric antibiotic coverage Echo was noted Cardiology's been consulted IV fluids to KVO Proceed with a sedation holiday and assess readiness to wean Will follow Critical care evaluation. Prognosis poor based on above-mentioned comorbidities. This evaluation was done and 33 minutes. Time with Patient: Greater than 30
--- NOTE | 2024-12-18 14:00 | P.PN ---
Subjective Progress Note Date: 12/18/24 74-year-old gentleman past medical history significant for hypertension, hyperlipidemia, systolic CHF, paroxysmal A-fib, who presents the ER because of chest pain and shortness of breath. Patient was admitted in the hospital in November at which time patient was found to have cardiomyopathy and had cardiac cath done which showed normal coronaries. Patient was discharged to rehab facility from where he was discharged home a couple of days back. Patient stated ever since discharge he has been having chest pain in the central location, pressure-like, nonradiating, no aggravating or relieving factor associated with this chest pain. patient also complains of shortness of breath Present on exertion. Patient denies any fever or chills. There is no complaint of orthopnea or PND. Denies any swelling of feet. Because of this shortness of breath, patient came to the ER Initial lab work done in the ER showed WBC 8.2, hemoglobin 13.3, platelet count 282, sodium 139, potassium 5.4, BUN 20, creatinine 1.19, calcium 9.7, bilirubin 1.4, AST 23, ALT 21, troponin 0.012 Urine done showed large amount of leukocyte Estrace, urine WBC 182 EKG done in the ER showed heart rate of 159, irregular in rate and rhythm, no ST segment elevation or depression seen, no T-wave inversions seen. Chest x-ray done in the ER showed cardiomegaly, pulm vascular congestion and bilateral pleural effusion Patient admitted to internal medicine service Objective - Vital Signs Vital signs: Vital Signs Temp 97.7 F 12/18/24 06:00 Pulse 112 H 12/18/24 07:00 Resp 18 12/18/24 07:00 BP 112/80 12/18/24 07:00 Pulse Ox 100 12/18/24 07:00 FiO2 35 12/18/24 08:36 Intake & Output 12/17/24 12/18/24 12/18/24 18:59 06:59 18:59 Intake Total 530 992.377 45 Output Total 1025 845 50 Balance -495 147.377 -5 Weight 72.575 kg 70.2 kg Intake: IV 300 275 25 0.9 300 275 25 Intake, IV Titration 220 487.377 Amount DOBUTamine DRIP 500 mg In 250 Dextrose/Water 1 250ml. bag @ 5 MCG/KG/MIN 10.886 mls/hr IV .[id number] [facility] Rx#:[id number] Sodium Chloride 0.9% 1, 20 000 ml @ 20 mls/hr IV . Q24H [facility] Rx#:[id number] propofoL 1,000 mg In 200 237.377 Empty Bag 1 bag @ 15 MCG/ KG/MIN 6.532 mls/hr IV . [id number] [facility] Rx#:[id number] Tube Feeding 10 140 20 Other 90 Output: Urine 1025 845 50 Other: Voiding Method Indwelling Catheter Indwelling Catheter ABP, PAP, CO, CI - Last Documented Arterial Blood Pressure 159/69 - Exam GENERAL: The patient is intubated HEENT: Pupils are round and equally reacting to light. EOMI. No scleral icterus. No conjunctival pallor. Normocephalic, atraumatic. No pharyngeal erythema. No thyromegaly. CARDIOVASCULAR: S1 and S2 present. No murmurs, rubs, or gallops. PULMONARY: Diminished breath sounds at bases, crackles audible bilateral ABDOMEN: Soft, nontender, nondistended, normoactive bowel sounds. No palpable organomegaly. MUSCULOSKELETAL: No joint swelling or deformity. EXTREMITIES: No cyanosis, clubbing, or pedal edema. NEUROLOGICAL: Gross neurological examination did not reveal any focal deficits. SKIN: No rashes. - Labs CBC & Chem 7: 12/18/24 04:08 12/18/24 09:56 Labs: Abnormal Lab Results - Last 24 Hours (Table) 12/17/24 12/17/24 12/18/24 Range/Units 07:10 10:40 04:04 RBC 4.00 L (4.30-5.90) m/uL Hgb 12.2 L (13.0-17.5) gm/dL Hct (39.0-53.0) % MCHC 30.6 L (31.0-37.0) g/dL ABG pH 7.49 H (7.35-7.45) ABG pCO2 28 L (35-45) mmHg ABG pO2 159 H (83-108) mmHg ABG O2 Saturation 99.8 H (94-97) % Hemoglobin 12.7 L (13.0-17.5) gm/dL Potassium (3.5-5.1) mmol/L Chloride (98-107) mmol/L Carbon Dioxide (22-30) mmol/L Urine Opiates Screen Positive A (Negative) Urine Cocaine Screen Positive A (Negative) 12/18/24 12/18/24 Range/Units 04:08 04:08 RBC 3.95 L (4.30-5.90) m/uL Hgb 12.3 L (13.0-17.5) gm/dL Hct 38.6 L (39.0-53.0) % MCHC (31.0-37.0) g/dL ABG pH (7.35-7.45) ABG pCO2 (35-45) mmHg ABG pO2 (83-108) mmHg ABG O2 Saturation (94-97) % Hemoglobin (13.0-17.5) gm/dL Potassium 3.4 L (3.5-5.1) mmol/L Chloride 108 H (98-107) mmol/L Carbon Dioxide 21 L (22-30) mmol/L Urine Opiates Screen (Negative) Urine Cocaine Screen (Negative) Assessment and Plan Assessment: Cardiogenic shock Bradycardia Acute hypoxic respiratory failure Acute on chronic systolic CHF, new echo done shows EF of 5 to 10% A-fib with RVR UTI Hyperkalemia History of hyperlipidemia History of hypertension History of chronic systolic CHF with EF of 20-25%, repeat echo shows EF of 5 to 10% Anxiety Depression Monitor vital signs Monitor CBC Monitor CMP Continue telemetry monitoring Aggressive bronchopulmonary hygiene Continue vent management Avoid AV julieth blocking agents Continue transvenous pacing at rate of 8 Continue IV Rocephin Continue dobutamine and Levophed Hold [facility] following ICU following ID following
--- NOTE | 2024-12-18 16:25 | P.PN ---
Subjective Progress Note Date: 12/18/24 Principal diagnosis: Reason for follow-up is a UTI Patient is a 74-year-old male with a past medical history significant for COPD hypertension prostate disorder anxiety depression history of heavy alcohol abuse presenting to the hospital for evaluation of chest pain and shortness of breath, patient did have significant breath arrhythmia requiring transvenous pacer intubation admission to ICU also have a positive UA concerning for UTI prompting this consultation. On today's evaluation that is 12/18/2024, patient did not have any fever and remains to be intubated on the vent FiO2 currently 35%, no significant purulent secretion through the ET and not requiring any pressor support as reported by the nursing staff. Patient white count 6.1, creatinine 1.02, no cultures done Objective - Vital Signs Vital signs: Vital Signs Temp 98.4 F 12/18/24 12:00 Pulse 96 12/18/24 15:15 Resp 16 12/18/24 15:00 BP 93/79 12/18/24 15:15 Pulse Ox 100 12/18/24 15:15 FiO2 35 12/18/24 15:11 Intake & Output 12/17/24 12/18/24 12/18/24 18:59 06:59 18:59 Intake Total 530 992.377 645 Output Total 1979 525 1238 Balance -495 147.377 -515 Weight 72.575 kg 70.2 kg Intake: IV 300 275 275 0.9 Normal Saline - 40 Sheath 0.9 Normal Saline @ KVO 300 275 185 cefTRIAXone 2 gm In 50 Sodium Chloride 0.9% 50 ml @ 100 mls/hr IVPB Q24HR [facility] Rx#:[id number] Intake, IV Titration 220 487.377 100 Amount DOBUTamine DRIP 500 mg In 250 Dextrose/Water 1 250ml. bag @ 5 MCG/KG/MIN 10.886 mls/hr IV .[id number] [facility] Rx#:[id number] Sodium Chloride 0.9% 1, 20 000 ml @ 20 mls/hr IV . Q24H [facility] Rx#:[id number] propofoL 1,000 mg In 200 237.377 100 Empty Bag 1 bag @ 15 MCG/ KG/MIN 6.532 mls/hr IV . [id number] [facility] Rx#:[id number] Tube Feeding 10 140 210 Other 90 60 Output: Urine 5088 000 8100 Other: Voiding Method Indwelling Catheter Indwelling Catheter ABP, PAP, CO, CI - Last Documented Arterial Blood Pressure 126/64 - Exam GENERAL DESCRIPTION: An elderly male intubated on the vent RESPIRATORY SYSTEM: Unlabored breathing , decreased breath sounds at bases HEART: S1 S2 regular rate and rhythm , ABDOMEN: Soft , no tenderness EXTREMITIES: No edema feet - Labs CBC & Chem 7: 12/18/24 04:08 12/18/24 09:56 Labs: Abnormal Lab Results - Last 24 Hours (Table) 12/17/24 12/18/24 12/18/24 Range/Units 07:10 04:04 04:08 RBC 3.95 L (4.30-5.90) m/uL Hgb 12.3 L (13.0-17.5) gm/dL Hct 38.6 L (39.0-53.0) % ABG pH 7.49 H (7.35-7.45) ABG pCO2 28 L (35-45) mmHg ABG pO2 159 H (83-108) mmHg ABG O2 Saturation 99.8 H (94-97) % Hemoglobin 12.7 L (13.0-17.5) gm/dL Potassium (3.5-5.1) mmol/L Chloride (98-107) mmol/L Carbon Dioxide (22-30) mmol/L Urine Blood Large H (Negative) Ur Leukocyte Esterase Small H (Negative) Urine RBC 69 H (0-5) /hpf Urine Mucus Rare H (None) /hpf 12/18/24 Range/Units 04:08 RBC (4.30-5.90) m/uL Hgb (13.0-17.5) gm/dL Hct (39.0-53.0) % ABG pH (7.35-7.45) ABG pCO2 (35-45) mmHg ABG pO2 (83-108) mmHg ABG O2 Saturation (94-97) % Hemoglobin (13.0-17.5) gm/dL Potassium 3.4 L (3.5-5.1) mmol/L Chloride 108 H (98-107) mmol/L Carbon Dioxide 21 L (22-30) mmol/L Urine Blood (Negative) Ur Leukocyte Esterase (Negative) Urine RBC (0-5) /hpf Urine Mucus (None) /hpf Assessment and Plan (1) UTI (urinary tract infection) Current Visit: Yes Status: Acute Code(s): N39.0 - URINARY TRACT INFECTION, SITE NOT SPECIFIED SNOMED Code(s): 79912062 Plan: 1patient presented to hospital with increasing shortness of breath which is more likely underlying cardiac etiology as patient noticed to be in A-fib with RVR subsequent getting to bradycardia arrhythmia for the patient being transferred to ICU as per discussion with admitting physician 2-patient also have a significantly positive UA some mental status changes history of prostate disorder with prostatomegaly seen on CT component of UTI not entirely excluded likely due to gram-negative pathogen 3-patient is currently being treated with Rocephin 2 g daily, blood culture has been done we will repeat his urine culture to determine adequacy of his antibiotics Dictation was produced using [employer] dictation software. please excuse any grammatical, word or spelling errors. Time with Patient: Less than 30
[2024-12-18 18:06] LABS: Glucose,Whole Blood 100 mg/dL (70-110)
--- NOTE | 2024-12-18 19:34 | PN ---
PROGRESS NOTE SUBJECTIVE: Brad is a 74-year-old gentleman with history of dilated cardiomyopathy with severe LV systolic dysfunction, paroxysmal atrial fibrillation, cocaine and EtOH abuse, who presented to hospital with atrial fibrillation with rapid ventricular rate. Subsequently developed progressively worsening respiratory insufficiency and had to be intubated. He also had symptomatic bradycardia with atrial fibrillation with slow ventricular rate and needed temporary transvenous pacemaker. His urine drug screen was positive for cocaine on this admission. He has severe LV systolic dysfunction with an ejection fraction of around 5% to 10%. He remains intubated on vent, heart rate is around 130 to 140 beats per minute. He is not using the temporary pacemaker. Blood pressure is 136/64. He is on dobutamine to help as an inotropic agent. He is also on Eliquis for anticoagulation. OBJECTIVE: VITAL SIGNS: Heart rate is 140 beats per minute, blood pressure is 140/80, respiratory rate 18. CHEST: Reveals occasional rhonchi with diminished air entry at the bases. HEART: Reveals first and second heart sounds, irregular rhythm and a systolic murmur at the apex. ABDOMEN: Soft. EXTREMITIES: Reveal mild edema bilaterally. LABORATORY DATA: Shows a hemoglobin of 12.8, platelet count is 225. Potassium is 3.4, creatinine is 1. ASSESSMENT: 1. Atrial fibrillation with poorly controlled ventricular rate. 2. Symptomatic bradycardia, status post temporary pacemaker. The pacemaker is functioning normally, but he has not been using it. 3. Vent requiring respiratory failure. 4. Cardiomyopathy with severe left ventricular dysfunction. 5. History of cocaine and alcohol abuse. PLAN: I will increase the dose of metoprolol to better control the heart rate, probably remove the temporary transvenous pacemaker tomorrow. His prognosis is guarded. MMODL / IJN: [id number] /
[2024-12-18] MEDS: METOPROLOL TARTRATE 50 MG TAB PO SCH (20:36)
[2024-12-19 04:47] LABS: Glucose,Whole Blood 111 mg/dL (70-110)
[2024-12-19 05:23] LABS: ABG Base Excess 2.6 mmol/L; ABG HCO3 27 mmol/L (21-25); ABG Oxygen Saturation 99.3 % (94-97); ABG PCO2 38 mmHg (35-45); ABG PH 7.45 (7.35-7.45); ABG PO2 126 mmHg (83-108); ABG TCO2 28 mmol/L (19-24)
[2024-12-19 05:25] LABS: Allen Test Performed? No
[2024-12-19 05:26] LABS: Basophils % (A) 0 %; Eosinophils # (A) 0.1 k/uL (0-0.7); Eosinophils % (A) 1 %; HGB 12.2 gm/dL (13.0-17.5); Lymphocytes # (A) 0.9 k/uL (1.0-4.8); Lymphocytes % (A) 12 %; MCH 31.7 pg (25.0-35.0); MCV 99.1 fL (80.0-100.0); Macrocytosis Slight; Mean Platelet Volume 7.7; Monocytes # (A) 0.6 k/uL (0-1.0); Monocytes % (A) 7 %; Neutrophils # (A) 5.9 k/uL (1.3-7.7); Neutrophils % (A) 79 %; Platelet Count 267 k/uL (150-450); RBC 3.83 m/uL (4.30-5.90); RDW 14.7 % (11.5-15.5); WBC 7.5 k/uL (3.8-10.6)
[2024-12-19 05:43] LABS: African American GFR (CKD) >90 (>60 ml/min/1.73 sqM); Anion Gap 7 mmol/L; Blood Urea Nitrogen 15 mg/dL (9-20); Calcium 9.1 mg/dL (8.4-10.2); Carbon Dioxide 27 mmol/L (22-30); Chloride 105 mmol/L (98-107); Glucose 102 mg/dL (74-99); Non-African American GFR(CKD) 80 (>60 ml/min/1.73 sqM); Potassium 3.3 mmol/L (3.5-5.1); Sodium 139 mmol/L (137-145)
--- NOTE | 2024-12-19 07:28 | XR ---
EXAMINATION TYPE: XR chest 1V portable DATE OF EXAM: 12/19/2024 4:32 AM COMPARISON: Multiple radiographs, with the most recent on 12/18/2024 TECHNIQUE: XR chest 1V portable Portable AP radiograph of the chest. CLINICAL INDICATION:Male, 74 years old with history of Tube placement; FINDINGS: Lungs/Pleura: Blunting of both costophrenic angles. Similar diffuse interstitial prominence. Similar bibasilar patchy airspace opacities with right greater the left. No pneumothorax. Heart/mediastinum: Cardiomediastinal silhouette is enlarged and stable. Lead overlies the right vent ricle. Musculoskeletal: No acute osseous pathology. Other findings: None Lines/Tubes: Endotracheal tube with distal tip 5.4 cm above the toya Nasogastric tube with its distal tip and side-port projecting under the diaphragm. Stable left subclavian approach central venous catheter distal tip terminating at the superior cavoat rial junction. Lead overlies the right ventricle. IMPRESSION: 1. Overall similar examination with cardiomegaly, diffuse interstitial prominence and small bilatera l pleural effusions. Correlate with BNP for congestive heart failure. Additionally there is similar b ibasilar patchy airspace opacities which may represent atelectasis versus infiltrates. 2. Stable support lines and tubes. [facility], , 12/19/2024 7:26 AM
[2024-12-19] MEDS: POTASSIUM BICARBONATE/CIT AC 20 MEQ TABLET.EFF NG-TUBE SCH (08:54)
[2024-12-19] MEDS: DEXMEDETOMIDINE/0.9% NACL(PMX) 400 MCG in EMPTY BAG 1 BAG IV SCH (09:03)
--- NOTE | 2024-12-19 12:18 | P.PN ---
Subjective Progress Note Date: 12/19/24 74-year-old male patient, known history of severe cardiomyopathy with an ejection fraction of 20%, nonischemic cardiomyopathy, known history of chronic atrial fibrillation, mitral regurgitation, hypertension hyperlipidemia and history of alcoholism. Cardiac catheterization done during recent hospitaliza tion showed normal coronaries. Patient presented to the emergency department with worsening shortness of breath. No reported chest pain. No leg edema. In the emergency, the patient was found to be in A-fib RVR, started on IV heparin and Cardizem drip for rate control. Subsequently, the patient started having episodes of bradycardia. Cardizem drip was discontinued. The patient was having significant bradycardia with hypotension and his heart rate was in the low 30s, A-fib rhythm. Elevated echocardiogram was done and it showed further impairment of the LV function with an EF of around 5 to 10%. There was global reduction of the LV systolic function. Cardiology was involved and the patient was taken to the [facility] and the patient was given a TVP set at the rate of 80. Following that, the patient got moved to the intensive care unit. Upon arrival, the patient was provided lethargic, short of breath, hypotensive. He was already on dopamine which is running at 5 mcg/kg/min. Blood gas showed a pH of 7.23 with a pCO2 of 43.8 and P02 234 and this was done on 100 % NRB. Based on the overall condition, the patient was intubated placed on ventilator. He is on propofol at 35 mcg/kg/min. UO is 100 cc/hr. He is on mechanical ventilator and he is on AC at a rate of 18 , TV 450, FI02 60 and PEEP of 10. Blood work showed a white cell count of 8.3, hemoglobin of 13.3 and a platelet count of 282. The patient has a sodium level of 135 potassium is at 5.4, bicarb is at 16, BUN is 20 with a creatinine of 1.1. proBNP level is more than 10,000. TSH is 4.4. LFTs are normal. UA is positive for white cells and leukocyte esterase with many bacteria. Patient was started on IV Rocephin. Postintubation chest x-ray shows evidence of pulmonary edema and bilateral pleural effusion.. Tube is in good location. There is evidence of pulm vascular congestion and moderate-sized bilateral pleural effusions. A triple-lumen catheter and arterial line was established. On 12/17/2024, the patient is being seen for a follow-up. The patient remains intubated on mechanical ventilator. This morning, the patient had a propofol running at 50 mcg/kg/min. The patient is calm and comfortable and successful mechanical ventilator. His assist-control mode at rate of 18, tidal volume of 450, FiO2 of 40% and PEEP of 10. The blood gas from today shows a pH of 7.42 with a pCO2 of 30 and pO2 of 242. Chest x-rayIs showing pulmonary vascular congestion/edema consistent with CHF. The patient has a TVP placed and the TVP is currently at a backup rate of 60. Meanwhile, the patient heart rate is improved and currently his heart rate is in the low 90s 100 range, still in atrial fibrillation the patient currently is on dobutamine 5 mcg/kg/min. Urine output is adequate. Afebrile. No pressors for now. White cell count is at 8 with a hemoglobin 12.2 and a platelet count of 239. Sodium is at 131, potassium is at 4.3, bicarb is at 19, BUN is 27 with a creatinine of 1.7 and the patient has sustained acute kidney injury. LFTs are mildly elevated including a mild elevation of the AST and ALT. Urine drug screen is positive for cocaine. The patient remains on IV Rocephin on an empiric basis pending further cultures. 12/18/2024, the patient is being seen for a follow-up. Remains intubated on mechanical ventilator, currently on propofol running at 50 mcg/kg/min,, comfortable and synchronous with the mechanical ventilator which is set at a rate of 18, tidal volume of 450, FiO2 40% with a PEEP of 5. Blood gas showed pH of 7.49 with a pCO2 of 28 and pO2 of 159. He remains in atrial fibrillation, rate is controlled and the patient remains on dobutamine at 5 mcg/kg/min. TVP backup is at 50. He is on vital HP at rate of 20 cc an hour. Chest x-ray is consistent with CHF with pulm vascular congestion and edema. The white cell count is 6.1, hemoglobin 12.3, platelet count of 225, sodium is at 137, BUN is 18 with a creatinine of 1 and a serum bicarb of 21. No fever. No other significant events overnight. 12/19/2024, the patient remains sedated on the mechanical ventilator. Sedation holiday was given and the patient was quite restless and agitated and was not fo llowing commands. This was reported yesterday and another sedation holiday will be done today. The patient remains on propofol running at 35 mcg/kg/min. The patient is on dobutamine at 5 mcg/kg/min. Remains on assist-control mode mechanical ventilation at rate of 12, tidal volume of 500, FiO2 35% with a PEEP of 5. Blood gas showed pH of 7.45 with a pCO2 of 38 and pO2 of 126. Fluid balance is +1.3 L over the past 24 hours. The patient was started on IV Lasix. The patient is also on metoprolol. The patient remains in atrial fibrillation. Metoprolol is being given at a dose of 50 mg p.o. and the dose has been modified to 3 times daily. Remains on anticoagulation with Eliquis. Remains on broad- spectrum antibiotics with IV Rocephin. Chest x-ray still consistent with pulmonary edema. He is afebrile. Objective - Vital Signs Vital signs: Vital Signs Temp 98.1 F 12/19/24 04:00 Pulse 104 H 12/19/24 07:00 Resp 13 12/19/24 07:00 BP 122/86 12/19/24 07:00 Pulse Ox 100 12/19/24 07:00 FiO2 35 12/19/24 07:34 Intake & Output 12/18/24 12/19/24 12/19/24 18:59 06:59 18:59 Intake Total 1126.69 1055.647 65 Output Total 1530 1730 25 Balance -403.31 -674.353 40 Weight 71.7 kg Intake: IV 375 275 25 0.9 Normal Saline - 60 55 5 Sheath 0.9 Normal Saline @ KVO 265 220 20 cefTRIAXone 2 gm In 50 Sodium Chloride 0.9% 50 ml @ 100 mls/hr IVPB Q24HR [facility] Rx#:[id number] Intake, IV Titration 331.69 260.647 Amount DOBUTamine DRIP 500 mg In 231.69 Dextrose/Water 1 250ml. bag @ 5 MCG/KG/MIN 10.886 mls/hr IV .[id number] [facility] Rx#:[id number] propofoL 1,000 mg In 100 260.647 Empty Bag 1 bag @ 15 MCG/ KG/MIN 6.532 mls/hr IV . [id number] [facility] Rx#:[id number] Tube Feeding 330 430 40 Other 90 90 Output: Urine 1530 1730 25 Other: Voiding Method Indwelling Catheter Indwelling Catheter # Bowel Movements 1 ABP, PAP, CO, CI - Last Documented Arterial Blood Pressure 138/69 - Exam The patient appeared well nourished and normally developed. Vital signs as documented. The patient is currently sedated, calm and comfortable on propofol. Orogastric and orotracheal tube are both in place Head exam is unremarkable. No scleral icterus or corneal arcus noted. Neck is with jugular venous distension, thyromegaly, or carotid bruits. Carotid upstrokes are brisk bilaterally. Triple-lumen catheter is seen in the left subclavian Lungs are clear to auscultation and percussion. Breath sounds are diminished in lung base bilaterally Cardiac exam reveals the PMI to be normally sized and situated. Rhythm is paced in atrial fibrillation and the patient has a backup TVP at rate of 60. First and second heart sounds normal. No murmurs, rubs or gallops. Patient is in atrial fibrillation Abdominal exam reveals normal bowel sounds, no masses, no organomegaly and no aortic enlargement. Extremities are nonedematous and both femoral and pedal pulses are quite diminished in lower extremities bilaterally. Femoral pulses are present. Brachial pulses are present. Examination of the skin revealed no evidence of significant rashes, suspicious appearing nevi or other concerning lesions. Neurologically, the patient is sedated on propofol - Labs CBC & Chem 7: 12/19/24 04:44 12/19/24 04:44 Labs: Abnormal Lab Results - Last 24 Hours (Table) 12/17/24 12/19/24 12/19/24 Range/Units 07:10 04:44 04:44 RBC 3.83 L (4.30-5.90) m/uL Hgb 12.2 L (13.0-17.5) gm/dL Hct 38.0 L (39.0-53.0) % Lymphocytes # 0.9 L (1.0-4.8) k/uL ABG pO2 (83-108) mmHg ABG HCO3 (21-25) mmol/L ABG Total CO2 (19-24) mmol/L ABG O2 Saturation (94-97) % Hemoglobin (13.0-17.5) gm/dL Potassium 3.3 L (3.5-5.1) mmol/L Glucose 102 H (74-99) mg/dL POC Glucose (mg/dL) (70-110) mg/dL Urine Blood Large H (Negative) Ur Leukocyte Esterase Small H (Negative) Urine RBC 69 H (0-5) /hpf Urine Mucus Rare H (None) /hpf 12/19/24 12/19/24 Range/Units 04:46 05:04 RBC (4.30-5.90) m/uL Hgb (13.0-17.5) gm/dL Hct (39.0-53.0) % Lymphocytes # (1.0-4.8) k/uL ABG pO2 126 H (83-108) mmHg ABG HCO3 27 H (21-25) mmol/L ABG Total CO2 28 H (19-24) mmol/L ABG O2 Saturation 99.3 H (94-97) % Hemoglobin 12.6 L (13.0-17.5) gm/dL Potassium (3.5-5.1) mmol/L Glucose (74-99) mg/dL POC Glucose (mg/dL) 111 H (70-110) mg/dL Urine Blood (Negative) Ur Leukocyte Esterase (Negative) Urine RBC (0-5) /hpf Urine Mucus (None) /hpf Assessment and Plan Plan: Acute respiratory failure essentially secondary underlying cardiogenic shock. The patient remains intubated on mechanical ventilator. There has been interval improvement in oxygenation and acid-base status. Adequate oxygenation on today's evaluation. Chest x-ray is consistent with CHF/pulmonary edema. Acute exacerbation of chronic CHF with secondary shortness of breath and hypoxic respiratory failure. Nonischemic cardiomyopathy with severe impairment of LV function and follow-up echocardiogram showing an EF of around 5 to 10%. Cardiac catheterization shows no significant coronary artery disease Atrial fibrillation with RVR with subsequent bradycardia requiring insertion of a temporary venous pacemaker and TVP set at rate of 50. The patient is currently in atrial fibrillation. Acute pulmonary edema and bilateral pleural effusion secondary to above Moderate mitral regurgitation Acute kidney injury, creatinine is back to normal Substance abuse/cocaine Metabolic acidosis, with a mild anion gap, recovered Alcoholism Hypertension UTI Hyperlipidemia BPH Hyperlipidemia Plan Keep the patient on propofol give the patient another sedation holiday. Continue ventilator support, no vent changes for today Continue TVP at rate of 50 Continue dobutamine 5 mcg/kg/min and utilize norepinephrine should there be any issues with hypotension Metoprolol 50 mg p.o. p.o. 3 times daily Continue Lasix 40 mg IV every 12 hours Continue anticoagulation with Eliquis Hold Entresto and lisinopril and Farxiga for now IV Rocephin as an empiric antibiotic coverage Echo was noted Cardiology's been consulted IV fluids to KVO Proceed with a sedation holiday and assess readiness to wean Will follow Critical care evaluation. Prognosis poor based on above-mentioned comorbiditie s. This evaluation was done and 33 minutes. Time with Patient: Greater than 30
[2024-12-19 12:24] LABS: Glucose,Whole Blood 112 mg/dL (70-110)
--- NOTE | 2024-12-19 15:26 | P.PN ---
Subjective Progress Note Date: 12/19/24 Principal diagnosis: Reason for follow-up is a UTI Patient is a 74-year-old male with a past medical history significant for COPD hypertension prostate disorder anxiety depression history of heavy alcohol abuse presenting to the hospital for evaluation of chest pain and shortness of breath, patient did have significant breath arrhythmia requiring transvenous pacer intubation admission to ICU also have a positive UA concerning for UTI prompting this consultation. On today's evaluation that is 12/19/2024, Patient is afebrile patient is currently intubated on the vent FiO2 at 35% patient is hemodynamic stable not requiring any pressor support no significant paralyzation to the ED or any other changes reported by the nursing staff. Patient white count 7.5, creatinine is 0.9 5 repeat urine is improved Objective - Vital Signs Vital signs: Vital Signs Temp 98.1 F 12/19/24 08:00 Pulse 103 H 12/19/24 14:00 Resp 12 12/19/24 14:00 BP 144/113 12/19/24 13:30 Pulse Ox 100 12/19/24 14:00 FiO2 35 12/19/24 15:05 Intake & Output 12/18/24 12/19/24 12/19/24 18:59 06:59 18:59 Intake Total 1126.69 2872.991 0623.279 Output Total 1530 1730 75 Balance -403.31 -747.341 4106.279 Weight 71.7 kg Intake: IV 921 019 6044 0.9 Normal Saline - 60 55 1390 Sheath 0.9 Normal Saline @ KVO 265 220 60 cefTRIAXone 2 gm In 50 Sodium Chloride 0.9% 50 ml @ 100 mls/hr IVPB Q24HR [facility] Rx#:[id number] Intake, IV Titration 331.69 260.647 146.279 Amount DOBUTamine DRIP 500 mg In 231.69 Dextrose/Water 1 250ml. bag @ 5 MCG/KG/MIN 10.886 mls/hr IV .[id number] [facility] Rx#:[id number] Dexmedetomidine/0.9% NaCl 46.279 (Pmx) 400 mcg In Empty Bag 1 bag @ 0.2 MCG/KG/HR 3.585 mls/hr IV .Q24H [facility] Rx#:[id number] propofoL 1,000 mg In 100 260.647 100.000 Empty Bag 1 bag @ 15 MCG/ KG/MIN 6.532 mls/hr IV . [id number] [facility] Rx#:[id number] Tube Feeding 330 430 320 Other 90 90 130 Output: Urine 1530 1730 75 Other: Voiding Method Indwelling Catheter Indwelling Catheter Indwelling Catheter # Bowel Movements 1 ABP, PAP, CO, CI - Last Documented Arterial Blood Pressure 161/77 - Exam GENERAL DESCRIPTION: An elderly male intubated on the vent RESPIRATORY SYSTEM: Unlabored breathing , decreased breath sounds at bases HEART: S1 S2 regular rate and rhythm , ABDOMEN: Soft , no tenderness EXTREMITIES: No edema feet - Labs CBC & Chem 7: 12/19/24 04:44 12/19/24 04:44 Labs: Abnormal Lab Results - Last 24 Hours (Table) 12/19/24 12/19/24 12/19/24 Range/Units 04:44 04:44 04:46 RBC 3.83 L (4.30-5.90) m/uL Hgb 12.2 L (13.0-17.5) gm/dL Hct 38.0 L (39.0-53.0) % Lymphocytes # 0.9 L (1.0-4.8) k/uL ABG pO2 (83-108) mmHg ABG HCO3 (21-25) mmol/L ABG Total CO2 (19-24) mmol/L ABG O2 Saturation (94-97) % Hemoglobin (13.0-17.5) gm/dL Potassium 3.3 L (3.5-5.1) mmol/L Glucose 102 H (74-99) mg/dL POC Glucose (mg/dL) 111 H (70-110) mg/dL 12/19/24 12/19/24 Range/Units 05:04 12:23 RBC (4.30-5.90) m/uL Hgb (13.0-17.5) gm/dL Hct (39.0-53.0) % Lymphocytes # (1.0-4.8) k/uL ABG pO2 126 H (83-108) mmHg ABG HCO3 27 H (21-25) mmol/L ABG Total CO2 28 H (19-24) mmol/L ABG O2 Saturation 99.3 H (94-97) % Hemoglobin 12.6 L (13.0-17.5) gm/dL Potassium (3.5-5.1) mmol/L Glucose (74-99) mg/dL POC Glucose (mg/dL) 112 H (70-110) mg/dL Assessment and Plan (1) UTI (urinary tract infection) Current Visit: Yes Status: Acute Code(s): N39.0 - URINARY TRACT INFECTION, SITE NOT SPECIFIED SNOMED Code(s): 56400110 Plan: 1patient presented to hospital with increasing shortness of breath which is more likely underlying cardiac etiology as patient noticed to be in A-fib with RVR subsequent getting to bradycardia arrhythmia for the patient being transferred to ICU as per discussion with admitting physician 2-patient also have a significantly positive UA some mental status changes history of prostate disorder with prostatomegaly seen on CT component of UTI not entirely excluded likely due to gram-negative pathogen 3-patient is afebrile and his white count is normal, repeat UA and showed improvement compared to admission UA continue with Rocephin Dictation was produced using [employer] dictation software. please excuse any grammatical, word or spelling errors. Time with Patient: Less than 30
[2024-12-19] MEDS: METOPROLOL TARTRATE 50 MG TAB PO SCH (16:03)
[2024-12-19] MEDS: CLEVIDIPINE BUTYRATE 25 MG in EMPTY BAG 1 BAG IV SCH (17:07)
--- NOTE | 2024-12-19 17:29 | PN ---
PROGRESS NOTE SUBJECTIVE: Brad is a 74-year-old gentleman with history of alcohol and cocaine abuse, who was admitted to hospital with atrial fibrillation with rapid ventricular rate, developed vent requiring respiratory failure. He is intubated on vent and blood pressure had improved. Remains in atrial fibrillation with poorly controlled ventricular rate. I am increasing the dose of metoprolol for better rate control. He has a temporary pacemaker, which he has induced in more than 2 days. I am going to stop it and has a venous sheath that is going to be removed. PHYSICAL EXAMINATION: GENERAL: He appears comfortable at rest. VITAL SIGNS: Blood pressure is 112/97; respiratory rate 18. He is mechanically ventilated with an O2 saturation of 100%. Intubated on vent. Heart rate is 120 beats per minute, irregular. CHEST: Reveals good air entry bilaterally with occasional rhonchi and crackles. HEART: Reveals first and second heart sounds. No gallop. EXTREMITIES: Reveals bilateral 1+ pitting edema. LABORATORY DATA: Labs show a creatinine of 0.9. Hemoglobin is 12.2, platelet count is 267. ASSESSMENT: 1. Atrial fibrillation with rapid ventricular rate. 2. Cardiomyopathy with severe left ventricular dysfunction. 3. Vent requiring respiratory failure. PLAN: We will discontinue the TVP. NIMISHA / LUCIANAN: [id number] /
[2024-12-19 17:42] LABS: Glucose,Whole Blood 98 mg/dL (70-110)
--- NOTE | 2024-12-19 20:00 | P.PN ---
Subjective Progress Note Date: 12/19/24 74-year-old gentleman past medical history significant for hypertension, hyperlipidemia, systolic CHF, paroxysmal A-fib, who presents the ER because of chest pain and shortness of breath. Patient was admitted in the hospital in November at which time patient was found to have cardiomyopathy and had cardiac cath done which showed normal coronaries. Patient was discharged to rehab facility from where he was discharged home a couple of days back. Patient stated ever since discharge he has been having chest pain in the central location, pressure-like, nonradiating, no aggravating or relieving factor associated with this chest pain. patient also complains of shortness of breath Present on exertion. Patient denies any fever or chills. There is no complaint of orthopnea or PND. Denies any swelling of feet. Because of this shortness of breath, patient came to the ER Initial lab work done in the ER showed WBC 8.2, hemoglobin 13.3, platelet count 282, sodium 139, potassium 5.4, BUN 20, creatinine 1.19, calcium 9.7, bilirubin 1.4, AST 23, ALT 21, troponin 0.012 Urine done showed large amount of leukocyte Estrace, urine WBC 182 EKG done in the ER showed heart rate of 159, irregular in rate and rhythm, no ST segment elevation or depression seen, no T-wave inversions seen. Chest x-ray done in the ER showed cardiomegaly, pulm vascular congestion and bilateral pleural effusion Patient admitted to internal medicine service 12/19/2024 --the patient is seen and evaluated in room at bedside; remains in ICU, sedated on the mechanical ventilator. The patient remains on propofol running at 35 mcg/kg/min. The patient is on dobutamine at 5 mcg/kg/min. Remains on assist-control mode mechanical ventilation. Blood gas showed pH of 7.45 with a pCO2 of 38 and pO2 of 126. Fluid balance is +1.3 L over the past 24 hours. The patient was started on IV Lasix. The kartik ent is also on metoprolol. The patient remains in atrial fibrillation. Metoprolol is being given at a dose of 50 mg p.o. and the dose has been modified to 3 times daily. Remains on anticoagulation with Eliquis. Remains on broad- spectrum antibiotics with IV Rocephin. Chest x-ray still consistent with pulmonary edema. He is afebrile. -patient also have a significantly positive UA some mental status changes history of prostate disorder with prostatomegaly seen on CT component of UTI not entirely excluded likely due to gram-negative pathogen -patient is afebrile and his white count is normal, repeat UA and showed improvement compared to admission UA continue with Rocephin Objective - Vital Signs Vital signs: Vital Signs Temp 98.1 F 12/19/24 04:00 Pulse 104 H 12/19/24 07:00 Resp 13 12/19/24 07:00 BP 122/86 12/19/24 07:00 Pulse Ox 100 12/19/24 07:00 FiO2 35 12/19/24 07:34 Intake & Output 12/18/24 12/19/24 12/19/24 18:59 06:59 18:59 Intake Total 1126.69 1055.647 132.060 Output Total 1530 1730 25 Balance -403.31 -674.353 107.060 Weight 71.7 kg Intake: IV 375 275 25 0.9 Normal Saline - 60 55 5 Sheath 0.9 Normal Saline @ KVO 265 220 20 cefTRIAXone 2 gm In 50 Sodium Chloride 0.9% 50 ml @ 100 mls/hr IVPB Q24HR [facility] Rx#:[id number] Intake, IV Titration 331.69 260.647 67.060 Amount DOBUTamine DRIP 500 mg In 231.69 Dextrose/Water 1 250ml. bag @ 5 MCG/KG/MIN 10.886 mls/hr IV .[id number] [facility] Rx#:[id number] propofoL 1,000 mg In 100 260.647 67.060 Empty Bag 1 bag @ 15 MCG/ KG/MIN 6.532 mls/hr IV . [id number] [facility] Rx#:[id number] Tube Feeding 330 430 40 Other 90 90 Output: Urine 1530 1730 25 Other: Voiding Method Indwelling Catheter Indwelling Catheter # Bowel Movements 1 ABP, PAP, CO, CI - Last Documented Arterial Blood Pressure 138/69 - Exam GENERAL: The patient is intubated HEENT: Pupils are round and equally reacting to light. EOMI. No scleral icterus. No conjunctival pallor. Normocephalic, atraumatic. No pharyngeal erythema. No thyromegaly. CARDIOVASCULAR: S1 and S2 present. No murmurs, rubs, or gallops. PULMONARY: Diminished breath sounds at bases, crackles audible bilateral ABDOMEN: Soft, nontender, nondistended, normoactive bowel sounds. No palpable organomegaly. MUSCULOSKELETAL: No joint swelling or deformity. EXTREMITIES: No cyanosis, clubbing, or pedal edema. NEUROLOGICAL: Gross neurological examination did not reveal any focal deficits. SKIN: No rashes. - Labs CBC & Chem 7: 12/19/24 04:44 12/19/24 04:44 Labs: Abnormal Lab Results - Last 24 Hours (Table) 12/17/24 12/19/24 12/19/24 Range/Units 07:10 04:44 04:44 RBC 3.83 L (4.30-5.90) m/uL Hgb 12.2 L (13.0-17.5) gm/dL Hct 38.0 L (39.0-53.0) % Lymphocytes # 0.9 L (1.0-4.8) k/uL ABG pO2 (83-108) mmHg ABG HCO3 (21-25) mmol/L ABG Total CO2 (19-24) mmol/L ABG O2 Saturation (94-97) % Hemoglobin (13.0-17.5) gm/dL Potassium 3.3 L (3.5-5.1) mmol/L Glucose 102 H (74-99) mg/dL POC Glucose (mg/dL) (70-110) mg/dL Urine Blood Large H (Negative) Ur Leukocyte Esterase Small H (Negative) Urine RBC 69 H (0-5) /hpf Urine Mucus Rare H (None) /hpf 12/19/24 12/19/24 Range/Units 04:46 05:04 RBC (4.30-5.90) m/uL Hgb (13.0-17.5) gm/dL Hct (39.0-53.0) % Lymphocytes # (1.0-4.8) k/uL ABG pO2 126 H (83-108) mmHg ABG HCO3 27 H (21-25) mmol/L ABG Total CO2 28 H (19-24) mmol/L ABG O2 Saturation 99.3 H (94-97) % Hemoglobin 12.6 L (13.0-17.5) gm/dL Potassium (3.5-5.1) mmol/L Glucose (74-99) mg/dL POC Glucose (mg/dL) 111 H (70-110) mg/dL Urine Blood (Negative) Ur Leukocyte Esterase (Negative) Urine RBC (0-5) /hpf Urine Mucus (None) /hpf Assessment and Plan Assessment: Cardiogenic shock Bradycardia Acute hypoxic respiratory failure Acute on chronic systolic CHF, new echo done shows EF of 5 to 10% A-fib with RVR UTI Hyperkalemia History of hyperlipidemia History of hypertension History of chronic systolic CHF with EF of 20-25%, repeat echo shows EF of 5 to 10% Anxiety Depression Monitor vital signs Monitor CBC Monitor CMP Continue telemetry monitoring Aggressive bronchopulmonary hygiene Continue vent management Avoid AV julieth blocking agents Continue transvenous pacing at rate of 8 Continue IV Rocephin Continue dobutamine and Levophed Hold [facility] following ICU following ID following
[2024-12-19 22:45] LABS: African American GFR (CKD) >90 (>60 ml/min/1.73 sqM); Anion Gap 7 mmol/L; Blood Urea Nitrogen 12 mg/dL (9-20); Calcium 9.5 mg/dL (8.4-10.2); Carbon Dioxide 33 mmol/L (22-30); Chloride 100 mmol/L (98-107); Glucose 113 mg/dL (74-99); Non-African American GFR(CKD) >90 (>60 ml/min/1.73 sqM); Potassium 3.1 mmol/L (3.5-5.1); Sodium 140 mmol/L (137-145)
[2024-12-19] MEDS: POTASSIUM CHLORIDE 20 MEQ in WATER FOR INJECTION 1 100ML.BAG IVPB SCH (23:00)
[2024-12-20 05:19] LABS: ABG Base Excess 9.5 mmol/L; ABG HCO3 34 mmol/L (21-25); ABG Oxygen Saturation 98.8 % (94-97); ABG PCO2 42 mmHg (35-45); ABG PH 7.51 (7.35-7.45); ABG PO2 108 mmHg (83-108); ABG TCO2 35 mmol/L (19-24)
[2024-12-20 05:21] LABS: Glucose,Whole Blood 99 mg/dL (70-110)
[2024-12-20 05:21] LABS: Allen Test Performed? No
[2024-12-20 05:49] LABS: Basophils % (A) 0 %; Eosinophils # (A) 0.2 k/uL (0-0.7); Eosinophils % (A) 2 %; HCT 45.1 % (39.0-53.0); HGB 14.1 gm/dL (13.0-17.5); Lymphocytes # (A) 0.7 k/uL (1.0-4.8); Lymphocytes % (A) 8 %; MCH 30.9 pg (25.0-35.0); MCHC 31.2 g/dL (31.0-37.0); MCV 98.9 fL (80.0-100.0); Mean Platelet Volume 7.7; Monocytes # (A) 0.6 k/uL (0-1.0); Monocytes % (A) 7 %; Neutrophils # (A) 6.7 k/uL (1.3-7.7); Neutrophils % (A) 81 %; Platelet Count 272 k/uL (150-450); RBC 4.56 m/uL (4.30-5.90); RDW 14.2 % (11.5-15.5); WBC 8.2 k/uL (3.8-10.6)
[2024-12-20 06:23] LABS: African American GFR (CKD) >90 (>60 ml/min/1.73 sqM); Anion Gap 7 mmol/L; Blood Urea Nitrogen 12 mg/dL (9-20); Calcium 9.3 mg/dL (8.4-10.2); Carbon Dioxide 34 mmol/L (22-30); Chloride 99 mmol/L (98-107); Glucose 111 mg/dL (74-99); Non-African American GFR(CKD) >90 (>60 ml/min/1.73 sqM); Potassium 3.7 mmol/L (3.5-5.1); Sodium 140 mmol/L (137-145)
--- NOTE | 2024-12-20 07:30 | P.PN ---
Subjective 74-year-old gentleman past medical history significant for hypertension, hyperlipidemia, systolic CHF, paroxysmal A-fib, who presents the ER because of chest pain and shortness of breath. Patient was admitted in the hospital in November at which time patient was found to have cardiomyopathy and had cardiac cath done which showed normal coronaries. Patient was discharged to rehab facility from where he was discharged home a couple of days back. Patient stated ever since discharge he has been having chest pain in the central location, pressure-like, nonradiating, no aggravating or relieving factor associated with this chest pain. patient also complains of shortness of breath Present on exertion. Patient denies any fever or chills. There is no complaint of orthopnea or PND. Denies any swelling of feet. Because of this shortness of breath, patient came to the ER Initial lab work done in the ER showed WBC 8.2, hemoglobin 13.3, platelet count 282, sodium 139, potassium 5.4, BUN 20, creatinine 1.19, calcium 9.7, bilirubin 1.4, AST 23, ALT 21, troponin 0.012 Urine done showed large amount of leukocyte Estrace, urine WBC 182 EKG done in the ER showed heart rate of 159, irregular in rate and rhythm, no ST segment elevation or depression seen, no T-wave inversions seen. Chest x-ray done in the ER showed cardiomegaly, pulm vascular congestion and bilateral pleural effusion Patient admitted to internal medicine service 12/19/2024 --the patient is seen and evaluated in room at bedside; remains in ICU, sedated on the mechanical ventilator. The patient remains on propofol running at 35 mcg/kg/min. The patient is on dobutamine at 5 mcg/kg/min. Remains on assist-control mode mechanical ventilation. Blood gas showed pH of 7.45 with a pCO2 of 38 and pO2 of 126. Fluid balance is +1.3 L over the past 24 hours. The patient was started on IV Lasix. The patient is also on metoprolol. The patient remains in atrial fibrillation. Metoprolol is being given at a dose of 50 mg p.o. and the dose has been modified to 3 times daily. Remains on anticoagulation with Eliquis. Remains on broad- spectrum antibiotics with IV Rocephin. Chest x-ray still consistent with pulmonary edema. He is afebrile. -patient also have a significantly positive UA some mental status changes history of prostate disorder with prostatomegaly seen on CT component of UTI not entirely excluded likely due to gram-negative pathogen -patient is afebrile and his white count is normal, repeat UA and showed improvement compared to admission UA continue with Rocephin 12/20 Patient is awake and does not follow commands while he is intubated He is on restraints He is currently getting pelvic breaks and dobutamine drips Yesterday propofol was tried to wean him down he got agitated will during sedation holiday trying to attack staff. Objective - Vital Signs Vital signs: Vital Signs Temp 97.6 F 12/20/24 04:00 Pulse 94 12/20/24 06:00 Resp 12 12/20/24 06:00 BP 124/65 12/20/24 05:15 Pulse Ox 100 12/20/24 06:00 FiO2 35 12/20/24 05:10 Intake & Output 12/19/24 12/20/24 12/20/24 18:59 06:59 18:59 Intake Total 1499.662 707.404 Output Total 2300 2690 Balance -800.338 -1982.596 Weight 68.9 kg Intake: IV 275 140 0.9 Normal Saline - 215 Sheath 0.9 Normal Saline @ KVO 60 140 Intake, IV Titration 434.662 387.404 Amount Clevidipine Butyrate 25 23.767 mg In Empty Bag 1 bag @ 1 MG/HR 2 mls/hr IV .Q24H [facility] Rx#:[id number] DOBUTamine DRIP 500 mg In 250 Dextrose/Water 1 250ml. bag @ Titrate IV .[id number] [facility] Rx#:[id number] Dexmedetomidine/0.9% NaCl 71.016 85.144 (Pmx) 400 mcg In Empty Bag 1 bag @ 0.2 MCG/KG/HR 3.585 mls/hr IV .Q24H [facility] Rx#:[id number] Potassium Chloride 20 meq 200 In Water For Injection 1 100ml.bag @ 50 mls/hr IVPB Q2H [facility] Rx#: [id number] propofoL 1,000 mg In 113.646 78.493 Empty Bag 1 bag @ 15 MCG/ KG/MIN 6.532 mls/hr IV . [id number] [facility] Rx#:[id number] Tube Feeding 480 120 Other 310 60 Output: Urine 2300 2690 Other: Voiding Method Indwelling Catheter Indwelling Catheter ABP, PAP, CO, CI - Last Documented Arterial Blood Pressure 116/65 - Exam -GENERAL: The patient is awake, confused, intubated, not in distress HEENT: Pupils are round and equally reacting to light. EOMI. No scleral icterus. No conjunctival pallor. Normocephalic, atraumatic. No pharyngeal erythema. No thyromegaly. CARDIOVASCULAR: S1 and S2 present. No murmurs, rubs, or gallops. PULMONARY: Chest is clear to auscultation, no wheezing , no crackles. ABDOMEN: Soft, nontender, nondistended, normoactive bowel sounds. No palpable organomegaly. MUSCULOSKELETAL: No joint swelling or deformity. EXTREMITIES: No cyanosis, clubbing, or pedal edema. NEUROLOGICAL: Gross neurological examination did not reveal any focal deficits. SKIN: No rashes. no petechiae. - Labs CBC & Chem 7: 12/20/24 05:16 12/20/24 05:16 Labs: Abnormal Lab Results - Last 24 Hours (Table) 12/19/24 12/19/24 12/20/24 Range/Units 12:23 21:55 03:30 Lymphocytes # (1.0-4.8) k/uL ABG pH 7.51 H (7.35-7.45) ABG HCO3 34 H (21-25) mmol/L ABG Total CO2 35 H (19-24) mmol/L ABG O2 Saturation 98.8 H (94-97) % Potassium 3.1 L (3.5-5.1) mmol/L Carbon Dioxide 33 H (22-30) mmol/L Glucose 113 H (74-99) mg/dL POC Glucose (mg/dL) 112 H (70-110) mg/dL 12/20/24 12/20/24 Range/Units 05:16 05:16 Lymphocytes # 0.7 L (1.0-4.8) k/uL ABG pH (7.35-7.45) ABG HCO3 (21-25) mmol/L ABG Total CO2 (19-24) mmol/L ABG O2 Saturation (94-97) % Potassium (3.5-5.1) mmol/L Carbon Dioxide 34 H (22-30) mmol/L Glucose 111 H (74-99) mg/dL POC Glucose (mg/dL) (70-110) mg/dL Assessment and Plan Assessment: Cardiogenic shock Bradycardia Acute hypoxic respiratory failure Acute on chronic systolic CHF, new echo done shows EF of 5 to 10% A-fib with RVR UTI Hyperkalemia History of hyperlipidemia History of hypertension History of chronic systolic CHF with EF of 20-25%, repeat echo shows EF of 5 to 10% Anxiety Depression Plan: Continue with dobutamine drip Continue with Catapres drip with close monitoring of blood pressure Continue with intubation and mechanical ventilation with pulmonary/critical care team following. Patient undergoing sedation holiday and weaning trials Monitor vital signs Monitor CBC Monitor CMP Continue telemetry monitoring Aggressive bronchopulmonary hygiene Continue vent management Avoid AV julieth blocking agents Continue transvenous pacing at rate of 8 Continue IV Rocephin Continue dobutamine and Levophed Hold Farxiga, Entresto Cardiology following ICU following ID following
--- NOTE | 2024-12-20 09:17 | P.PN ---
Subjective Progress Note Date: 12/20/24 The patient is a 74-year-old male who is currently admitted with congestive heart failure secondary to nonischemic cardiomyopathy and paroxysmal atrial fibrillation. Initially the patient was started on amiodarone and beta-blockers for rate control when he became bradycardic. TVP was placed and has subse quently been discontinued. Patient is currently sedated on ventilator. Nursing staff states he gets extremely agitated when attempting to wean. Heart rates are better controlled on increased dose of beta-margaux GENERAL: Well-appearing, well-nourished and in no acute distress. Currently sedated on ventilator NECK: Supple without JVD or thyromegaly. LUNGS: Breath sounds diminished to auscultation bilaterally. Respiration equal and unlabored. No wheezes, rales or rhonchi. HEART: Irregular rate and rhythm without murmurs, rubs or gallops. S1 and S2 heard. EXTREMITIES: Normal range of motion, no edema. No clubbing or cyanosis. Peripheral pulses intact and strong. TELEMETRY: Atrial fibrillation with heart rates in the 90s, occasional PVCs LABS: WBC 8.2, hemoglobin 14.1, [place] crit 45.1, platelet 272, sodium 140, potassium 3.7, BUN 12, creatinine 0.70 IMPRESSION: Paroxysmal atrial fibrillation with RVR, improving Nonischemic cardiomyopathy, 5 to 10% Chronic systolic heart failure Moderate mitral regurgitation Symptomatic bradycardia, temporary venous pacer discontinued History of hypertension History of hyperlipidemia Anxiety Depression Daily alcohol use Drug abuse, positive for cocaine PLAN: Start losartan- plan to transition back to Entresto once extubated Continue to wean from drips as tolerated Consider increasing beta margaux Further recommendations to be based on clinical course I am dictating on behalf of Dr Bertin De La Rosa's history/physical and assessment/plan. Objective - Vital Signs Vital signs: Vital Signs Temp 97.1 F L 12/20/24 08:00 Pulse 110 H 12/20/24 08:00 Resp 12 12/20/24 08:00 BP 128/99 12/20/24 08:00 Pulse Ox 100 12/20/24 08:00 FiO2 35 12/20/24 08:25 Intake & Output 12/19/24 12/20/24 12/20/24 18:59 06:59 18:59 Intake Total 1499.662 707.404 40 Output Total 2300 2690 50 Balance -800.338 -1982.596 -10 Weight 68.9 kg Intake: IV 275 140 40 0.9 Normal Saline - 215 Sheath 0.9 Normal Saline @ KVO 60 140 40 Intake, IV Titration 434.662 387.404 Amount Clevidipine Butyrate 25 23.767 mg In Empty Bag 1 bag @ 1 MG/HR 2 mls/hr IV .Q24H [facility] Rx#:[id number] DOBUTamine DRIP 500 mg In 250 Dextrose/Water 1 250ml. bag @ Titrate IV .[id number] [facility] Rx#:[id number] Dexmedetomidine/0.9% NaCl 71.016 85.144 (Pmx) 400 mcg In Empty Bag 1 bag @ 0.2 MCG/KG/HR 3.585 mls/hr IV .Q24H [facility] Rx#:[id number] Potassium Chloride 20 meq 200 In Water For Injection 1 100ml.bag @ 50 mls/hr IVPB Q2H [facility] Rx#: [id number] propofoL 1,000 mg In 113.646 78.493 Empty Bag 1 bag @ 15 MCG/ KG/MIN 6.532 mls/hr IV . [id number] [facility] Rx#:[id number] Tube Feeding 480 120 Other 310 60 Output: Urine 2300 2690 50 Other: Voiding Method Indwelling Catheter Indwelling Catheter ABP, PAP, CO, CI - Last Documented Arterial Blood Pressure 151/66 - Labs CBC & Chem 7: 12/20/24 05:16 12/20/24 05:16 Labs: Abnormal Lab Results - Last 24 Hours (Table) 12/19/24 12/19/24 12/20/24 Range/Units 12:23 21:55 03:30 Lymphocytes # (1.0-4.8) k/uL ABG pH 7.51 H (7.35-7.45) ABG HCO3 34 H (21-25) mmol/L ABG Total CO2 35 H (19-24) mmol/L ABG O2 Saturation 98.8 H (94-97) % Potassium 3.1 L (3.5-5.1) mmol/L Carbon Dioxide 33 H (22-30) mmol/L Glucose 113 H (74-99) mg/dL POC Glucose (mg/dL) 112 H (70-110) mg/dL 12/20/24 12/20/24 Range/Units 05:16 05:16 Lymphocytes # 0.7 L (1.0-4.8) k/uL ABG pH (7.35-7.45) ABG HCO3 (21-25) mmol/L ABG Total CO2 (19-24) mmol/L ABG O2 Saturation (94-97) % Potassium (3.5-5.1) mmol/L Carbon Dioxide 34 H (22-30) mmol/L Glucose 111 H (74-99) mg/dL POC Glucose (mg/dL) (70-110) mg/dL
[2024-12-20] MEDS: LOSARTAN 25 MG TAB PO SCH (09:44)
--- NOTE | 2024-12-20 09:45 | XR ---
EXAMINATION TYPE: XR chest 1V portable DATE OF EXAM: 12/20/2024 4:17 AM COMPARISON: 12/19/2024 CLINICAL INDICATION: Male, 74 years old with history of Pt. intubated, FINDINGS: Indwelling tubes and catheters are unchanged. No change in bibasilar opacities. Stable appearance of the cardio-mediastinal structures at this time. Pleural effusion unchanged. IMPRESSION: 1. Stable portable chest. Clinical correlation and follow up until resolution is recommended. [facility], , 12/20/2024 9:43 AM
[2024-12-20 12:11] LABS: Glucose,Whole Blood 98 mg/dL (70-110)
--- NOTE | 2024-12-20 12:11 | P.PN ---
Subjective Progress Note Date: 12/20/24 Principal diagnosis: Acute hypoxic respiratory failure secondary to cardiogenic shock requiring intubation mechanical ventilation. 74-year-old male patient, known history of severe cardiomyopathy with an ejection fraction of 20%, nonischemic cardiomyopathy, known history of chronic atrial fibrillation, mitral regurgitation, hypertension hyperlipidemia and history of alcoholism. Cardiac catheterization done during recent hospitalization showed normal coronaries. Patient presented to the emergency department with worsening shortness of breath. No reported chest pain. No leg edema. In the emergency, the patient was found to be in A-fib RVR, started on IV heparin and Cardizem drip for rate control. Subsequently, the patient started having episodes of bradycardia. Cardizem drip was discontinued. The patient was having significant bradycardia with hypotension and his heart rate was in the low 30s, A-fib rhythm. Elevated echocardiogram was done and it showed further impairment of the LV function with an EF of around 5 to 10%. There was global reduction of the LV systolic function. Cardiology was involved and the patient was taken to the [facility] and the patient was given a TVP set at the rate of 80. Following that, the patient got moved to the intensive care unit. Upon arrival, the patient was provided lethargic, short of breath, hypotensive. He was already on dopamine which is running at 5 mcg/kg/min. Blood gas showed a pH of 7.23 with a pCO2 of 43.8 and P02 234 and this was done on 100 % NRB. Based on the overall condition, the patient was intubated placed on ventilator. He is on propofol at 35 mcg/kg/min. UO is 100 cc/hr. He is on mechanical ventilator and he is on AC at a rate of 18 , TV 450, FI02 60 and PEEP of 10. Blood work showed a white cell count of 8.3, hemoglobin of 13.3 and a platelet count of 282. The patient has a sodium level of 135 potassium is at 5.4, bicarb is at 16, BUN is 20 with a creatinine of 1.1. proBNP level is more than 10,000. TSH is 4.4. LFTs are normal. UA is positive for white cells and leukocyte esterase with many bacteria. Patient was started on IV Rocephin. Postintubation chest x-ray shows evidence of pulmonary edema and bilateral pleural effusion.. Tube is in good location. There is evidence of pulm vascular congestion and moderate-sized bilateral pleural effusions. A triple- lumen catheter and arterial line was established. On 12/17/2024, the patient is being seen for a follow-up. The patient remains intubated on mechanical ventilator. This morning, the patient had a propofol running at 50 mcg/kg/min. The patient is calm and comfortable and successful mechanical ventilator. His assist-control mode at rate of 18, tidal volume of 450, FiO2 of 40% and PEEP of 10. The blood gas from today shows a pH of 7.42 with a pCO2 of 30 and pO2 of 242. Chest x-rayIs showing pulmonary vascular congestion/edema consistent with CHF. The patient has a TVP placed and the TVP is currently at a backup rate of 60. Meanwhile, the patient heart rate is improved and currently his heart rate is in the low 90s 100 range, still in atrial fibrillation the patient currently is on dobutamine 5 mcg/kg/min. Urine output is adequate. Afebrile. No pressors for now. White cell count is at 8 with a hemoglobin 12.2 and a platelet count of 239. Sodium is at 131, potassium is at 4.3, bicarb is at 19, BUN is 27 with a creatinine of 1.7 and the patient has sustained acute kidney injury. LFTs are mildly elevated including a mild elevation of the AST and ALT. Urine drug screen is positive for cocaine. The patient remains on IV Rocephin on an empiric basis pending further cultures. 12/18/2024, the patient is being seen for a follow-up. Remains intubated on mechanical ventilator, currently on propofol running at 50 mcg/kg/min,, comfortable and synchronous with the mechanical ventilator which is set at a rate of 18, tidal volume of 450, FiO2 40% with a PEEP of 5. Blood gas showed pH of 7.49 with a pCO2 of 28 and pO2 of 159. He remains in atrial fibrillation, rate is controlled and the patient remains on dobutamine at 5 mcg/kg/min. TVP backup is at 50. He is on vital HP at rate of 20 cc an hour. Chest x-ray is consistent with CHF with pulm vascular congestion and edema. The white cell count is 6.1, hemoglobin 12.3, platelet count of 225, sodium is at 137, BUN is 18 with a creatinine of 1 and a serum bicarb of 21. No fever. No other significant events overnight. 12/19/2024, the patient remains sedated on the mechanical ventilator. Sedation holiday was given and the patient was quite restless and agitated and was not following commands. This was reported yesterday and another sedation holiday will be done today. The patient remains on propofol running at 35 mcg/kg/min. The patient is on dobutamine at 5 mcg/kg/min. Remains on assist-control mode mechanical ventilation at rate of 12, tidal volume of 500, FiO2 35% with a PEEP of 5. Blood gas showed pH of 7.45 with a pCO2 of 38 and pO2 of 126. Fluid balance is +1.3 L over the past 24 hours. The patient was started on IV Lasix. The patient is also on metoprolol. The patient remains in atrial fibrillation. Metoprolol is being given at a dose of 50 mg p.o. and the dose has been modified to 3 times daily. Remains on anticoagulation with Eliquis. Remains on broad- spectrum antibiotics with IV Rocephin. Chest x-ray still consistent with pulmonary edema. He is afebrile. Patient was seen today on 12/20/2024, remains in the ICU, intubated and mechanically ventilated. Patient is on assist-control rate of 12 tidal volume 450 FiO2 35% and PEEP of 5. ABG showed a pO2 of 108 pCO2 42 pH of 7.51. Hence no changes were made in vent settings. Drips garcia, patient remains on dobutamine at 2.5 mg/kg/min Cleviprex at 1 mg/h, Precedex at 0.6 mcg/kg/h, propofol at 15 mcg/kg/min. Patient is on Lasix 40 mg IV push twice daily remains on Rocephin, and he remains on Eliquis. Nutrition garcia patient is receiving vital HP at 40 cc/h, however it is presently on hold because of high residual of over 800 cc. Patient has not been able to wean mostly because of the extreme agitation when he is off the propofol Lozano presently on Precedex and propofol. And the plan is to continue maximal dose of Precedex, and continue to try daily trials of weaning. Will try this again today, however remind you patient has a very low ejection fraction of 5 to 10%, patient has what seems to be a picture of nonischemic cardiomyopathy and LV dysfunction. Chest x-ray today showed mostly no major change, pleural effusions remain unchanged, patient has bibasilar opacities consistent with congestive heart failure. Underlying pneumonia is not entirely ruled out. WBC count is normal, no evidence of leukocytosis, his electrolytes are normal, bicarb is elevated at 34, BUN is 12 creatinine 0.7. Objective - Vital Signs Vital signs: Vital Signs Temp 97.1 F L 12/20/24 08:00 Pulse 82 12/20/24 11:15 Resp 12 12/20/24 11:15 BP 117/71 12/20/24 11:15 Pulse Ox 100 12/20/24 11:15 FiO2 35 12/20/24 11:45 Intake & Output 12/19/24 12/20/24 12/20/24 18:59 06:59 18:59 Intake Total 1499.662 707.404 316.748 Output Total 2300 2690 825 Balance -800.338 -1982.596 -508.252 Weight 68.9 kg Intake: IV 275 140 130 0.9 Normal Saline - 215 Sheath 0.9 Normal Saline @ KVO 60 140 80 cefTRIAXone 2 gm In 50 Sodium Chloride 0.9% 50 ml @ 100 mls/hr IVPB Q24HR [facility] Rx#:[id number] Intake, IV Titration 434.662 387.404 166.748 Amount Clevidipine Butyrate 25 23.767 23.600 mg In Empty Bag 1 bag @ 1 MG/HR 2 mls/hr IV .Q24H [facility] Rx#:[id number] DOBUTamine DRIP 500 mg In 250 Dextrose/Water 1 250ml. bag @ Titrate IV .[id number] [facility] Rx#:[id number] Dexmedetomidine/0.9% NaCl 71.016 85.144 119.232 (Pmx) 400 mcg In Empty Bag 1 bag @ 0.2 MCG/KG/HR 3.585 mls/hr IV .Q24H [facility] Rx#:[id number] Potassium Chloride 20 meq 200 In Water For Injection 1 100ml.bag @ 50 mls/hr IVPB Q2H [facility] Rx#: [id number] propofoL 1,000 mg In 113.646 78.493 23.916 Empty Bag 1 bag @ 15 MCG/ KG/MIN 6.532 mls/hr IV . [id number] [facility] Rx#:[id number] Tube Feeding 480 120 20 Other 310 60 Output: Urine 2300 2690 825 Other: Voiding Method Indwelling Catheter Indwelling Catheter Indwelling Catheter ABP, PAP, CO, CI - Last Documented Arterial Blood Pressure 137/66 - Exam GENERAL: revealed a 74-year-old white male intubated, mechanically ventilated, sedated, on Precedex and on propofol. Patient gets extremely agitated off propofol, and today the plan is to increase his Precedex and hopefully get a full assessment of mental status off propofol. HEENT: Pupils are round and equally reacting to light. EOMI. No scleral icterus. No conjunctival pallor. Normocephalic, atraumatic. No pharyngeal erythema. No thyromegaly. Endotracheal tube and orogastric tubes are intact. CARDIOVASCULAR: Distant S1-S2, no S3 gallop, no murmur. PULMONARY: Symmetrical chest expansion, crackles at the bases no rhonchi no wheezes ABDOMEN: Soft, nontender, nondistended, normoactive bowel sounds. No palpable organomegaly. MUSCULOSKELETAL: No deformities and no limitation range of motion EXTREMITIES: No clubbing, trace of edema, no cyanosis. NEUROLOGICAL: Patient is arousable but gets extremely anxious and agitated off sedation. Could not fully assess mental status. SKIN: No rashes. Psychiatric: Could not fully assess. Patient is on propofol and on Precedex. - Labs CBC & Chem 7: 12/20/24 05:16 12/20/24 05:16 Labs: Abnormal Lab Results - Last 24 Hours (Table) 12/19/24 12/19/24 12/20/24 Range/Units 12:23 21:55 03:30 Lymphocytes # (1.0-4.8) k/uL ABG pH 7.51 H (7.35-7.45) ABG HCO3 34 H (21-25) mmol/L ABG Total CO2 35 H (19-24) mmol/L ABG O2 Saturation 98.8 H (94-97) % Potassium 3.1 L (3.5-5.1) mmol/L Carbon Dioxide 33 H (22-30) mmol/L Glucose 113 H (74-99) mg/dL POC Glucose (mg/dL) 112 H (70-110) mg/dL 12/20/24 12/20/24 Range/Units 05:16 05:16 Lymphocytes # 0.7 L (1.0-4.8) k/uL ABG pH (7.35-7.45) ABG HCO3 (21-25) mmol/L ABG Total CO2 (19-24) mmol/L ABG O2 Saturation (94-97) % Potassium (3.5-5.1) mmol/L Carbon Dioxide 34 H (22-30) mmol/L Glucose 111 H (74-99) mg/dL POC Glucose (mg/dL) (70-110) mg/dL Assessment and Plan Assessment: Impression: Acute hypoxic respiratory failure secondary to cardiogenic shock and severe LV dysfunction, nonischemic in nature. Acute on chronic systolic congestive heart failure Nonischemic cardiomyopathy with normal cardiac catheterization but severe LV dysfunction ejection fraction of 5 to 10% Chronic atrial fibrillation, rate controlled. Moderate mitral regurgitation History of substance abuse/cocaine History of alcoholism, could be the leading cause of his cardiomyopathy and LV dysfunction Benign essential hypertension Acute urinary tract infection Dyslipidemia Benign prostatic hyperplasia Recommendation: Continue ventilatory support Give the patient a trial of sedation holiday, and continue Precedex assess mental status off propofol but on Precedex Continue Dobutrex at 2.5 mcg/kg/min Continue metoprolol 50 mg p.o. 3 times daily Continue Lasix 40 mg IV push twice daily Continue Eliquis Continue empiric antibiotics/Rocephin Continue thiamine and CIWA protocol IV fluid to remain at KVO Will try daily assessment for possible weaning however the patient today is not ready for weaning Remains critically ill Critical care time is over 30 minutes. Prognosis is extremely guarded considering his LV dysfunction. And his cardiogenic shock. Time with Patient: Greater than 30
[2024-12-20] MEDS: QUEtiapine 25 MG TAB PO SCH (12:22)
--- NOTE | 2024-12-20 16:54 | P.PN ---
Subjective Progress Note Date: 12/20/24 Principal diagnosis: Reason for follow-up is a UTI Patient is a 74-year-old male with a past medical history significant for COPD hypertension prostate disorder anxiety depression history of heavy alcohol abuse presenting to the hospital for evaluation of chest pain and shortness of breath, patient did have significant breath arrhythmia requiring transvenous pacer intubation admission to ICU also have a positive UA concerning for UTI prompting this consultation. On today's evaluation that is 12/20/2024, patient has been afebrile, patient remains to be intubated on the vent FiO2 currently 35% no significant purulent secretion through the ET patient hemodynamically stable not requiring any pressor support no other changes reported. Patient white count is 8.2 creatinine is 0.70 Objective - Vital Signs Vital signs: Vital Signs Temp 97.5 F L 12/20/24 12:00 Pulse 101 H 12/20/24 13:00 Resp 12 12/20/24 13:00 BP 153/81 12/20/24 13:00 Pulse Ox 100 12/20/24 13:00 FiO2 35 12/20/24 12:00 Intake & Output 12/19/24 12/20/24 12/20/24 18:59 06:59 18:59 Intake Total 1499.662 707.404 411.230 Output Total 2300 2690 1000 Balance -800.338 -1982.596 -588.770 Weight 68.9 kg Intake: IV 275 140 170 0.9 Normal Saline - 215 Sheath 0.9 Normal Saline @ KVO 60 140 120 cefTRIAXone 2 gm In 50 Sodium Chloride 0.9% 50 ml @ 100 mls/hr IVPB Q24HR [facility] Rx#:[id number] Intake, IV Titration 434.662 387.404 171.230 Amount Clevidipine Butyrate 25 23.767 23.600 mg In Empty Bag 1 bag @ 1 MG/HR 2 mls/hr IV .Q24H [facility] Rx#:[id number] DOBUTamine DRIP 500 mg In 250 Dextrose/Water 1 250ml. bag @ Titrate IV .[id number] [facility] Rx#:[id number] Dexmedetomidine/0.9% NaCl 71.016 85.144 123.714 (Pmx) 400 mcg In Empty Bag 1 bag @ 0.2 MCG/KG/HR 3.585 mls/hr IV .Q24H [facility] Rx#:[id number] Potassium Chloride 20 meq 200 In Water For Injection 1 100ml.bag @ 50 mls/hr IVPB Q2H [facility] Rx#: [id number] propofoL 1,000 mg In 113.646 78.493 23.916 Empty Bag 1 bag @ 15 MCG/ KG/MIN 6.532 mls/hr IV . [id number] [facility] Rx#:[id number] Tube Feeding 480 120 40 Other 310 60 30 Output: Urine 2300 2690 1000 Other: Voiding Method Indwelling Catheter Indwelling Catheter Indwelling Catheter ABP, PAP, CO, CI - Last Documented Arterial Blood Pressure 149/74 - Exam GENERAL DESCRIPTION: An elderly male intubated on the vent RESPIRATORY SYSTEM: Unlabored breathing , decreased breath sounds at bases HEART: S1 S2 regular rate and rhythm , ABDOMEN: Soft , no tenderness EXTREMITIES: No edema feet - Labs CBC & Chem 7: 12/20/24 05:16 12/20/24 05:16 Labs: Abnormal Lab Results - Last 24 Hours (Table) 12/19/24 12/20/24 12/20/24 Range/Units 21:55 03:30 05:16 Lymphocytes # 0.7 L (1.0-4.8) k/uL ABG pH 7.51 H (7.35-7.45) ABG HCO3 34 H (21-25) mmol/L ABG Total CO2 35 H (19-24) mmol/L ABG O2 Saturation 98.8 H (94-97) % Potassium 3.1 L (3.5-5.1) mmol/L Carbon Dioxide 33 H (22-30) mmol/L Glucose 113 H (74-99) mg/dL 12/20/24 Range/Units 05:16 Lymphocytes # (1.0-4.8) k/uL ABG pH (7.35-7.45) ABG HCO3 (21-25) mmol/L ABG Total CO2 (19-24) mmol/L ABG O2 Saturation (94-97) % Potassium (3.5-5.1) mmol/L Carbon Dioxide 34 H (22-30) mmol/L Glucose 111 H (74-99) mg/dL Assessment and Plan (1) UTI (urinary tract infection) Current Visit: Yes Status: Acute Code(s): N39.0 - URINARY TRACT INFECTION, SITE NOT SPECIFIED SNOMED Code(s): 39238178 Plan: 1patient presented to hospital with increasing shortness of breath which is more likely underlying cardiac etiology as patient noticed to be in A-fib with RVR subsequent getting to bradycardia arrhythmia for the patient being transferred to ICU as per discussion with admitting physician 2-patient also have a significantly positive UA some mental status changes history of prostate disorder with prostatomegaly seen on CT component of UTI not entirely excluded likely due to gram-negative pathogen 3-patient is afebrile and his white count is normal, to continue with Rocephin and monitor clinical course closely Dictation was produced using Teachable dictation software. please excuse any grammatical, word or spelling errors. Time with Patient: Less than 30
[2024-12-20 18:01] LABS: Glucose,Whole Blood 95 mg/dL (70-110)
[2024-12-20] MEDS: POTASSIUM BICARBONATE/CIT AC 20 MEQ TABLET.EFF NG-TUBE SCH (23:38)
[2024-12-20 23:47] LABS: Glucose,Whole Blood 97 mg/dL (70-110)
[2024-12-21 04:02] LABS: ABG Base Excess 8.6 mmol/L; ABG HCO3 32 mmol/L (21-25); ABG Oxygen Saturation 98.9 % (94-97); ABG PCO2 40 mmHg (35-45); ABG PH 7.51 (7.35-7.45); ABG PO2 110 mmHg (83-108); ABG TCO2 34 mmol/L (19-24)
[2024-12-21 04:05] LABS: Allen Test Performed? no
[2024-12-21 04:48] LABS: African American GFR (CKD) >90 (>60 ml/min/1.73 sqM); Anion Gap 7 mmol/L; Blood Urea Nitrogen 18 mg/dL (9-20); Carbon Dioxide 32 mmol/L (22-30); Chloride 97 mmol/L (98-107); Glucose 98 mg/dL (74-99); Non-African American GFR(CKD) 81 (>60 ml/min/1.73 sqM); Potassium 4.5 mmol/L (3.5-5.1); Sodium 136 mmol/L (137-145)
[2024-12-21 04:51] LABS: Basophils % (A) 0 %; Eosinophils # (A) 0.1 k/uL (0-0.7); Eosinophils % (A) 1 %; HCT 42.6 % (39.0-53.0); Lymphocytes # (A) 0.9 k/uL (1.0-4.8); Lymphocytes % (A) 9 %; MCH 30.2 pg (25.0-35.0); MCHC 30.6 g/dL (31.0-37.0); MCV 98.8 fL (80.0-100.0); Mean Platelet Volume 7.6; Monocytes # (A) 0.6 k/uL (0-1.0); Monocytes % (A) 7 %; Neutrophils # (A) 7.4 k/uL (1.3-7.7); Neutrophils % (A) 81 %; Platelet Count 299 k/uL (150-450); RBC 4.31 m/uL (4.30-5.90); RDW 14.2 % (11.5-15.5); WBC 9.1 k/uL (3.8-10.6)
--- NOTE | 2024-12-21 07:20 | XR ---
EXAMINATION TYPE: XR chest 1V portable DATE OF EXAM: 12/21/2024 5:37 AM COMPARISON: 12/20/2024 CLINICAL INDICATION: Male, 74 years old with history of mechanical ventilation, FINDINGS: Indwelling tubes and catheters are unchanged. No change in bibasilar opacities. Stable appearance of the cardio-mediastinal structures at this time. Pleural effusion unchanged. IMPRESSION: 1. Stable portable chest. Clinical correlation and follow up until resolution is recommended. [facility], , 12/21/2024 7:18 AM
[2024-12-21] MEDS: ALBUTEROL NEBULIZED 2.5 MG/3 ML INHALATION PRN (07:42)
[2024-12-21] MEDS: DEXTROSE 5% IN WATER 250 ML with AMIODARONE 300 MG IV ONE (09:28)
[2024-12-21 12:44] LABS: Glucose,Whole Blood 118 mg/dL (70-110)
--- NOTE | 2024-12-21 13:14 | P.PN ---
Subjective Progress Note Date: 12/21/24 Principal diagnosis: Acute hypoxic respiratory failure secondary to cardiogenic shock requiring intubation mechanical ventilation. 74-year-old male patient, known history of severe cardiomyopathy with an ejection fraction of 20%, nonischemic cardiomyopathy, known history of chronic atrial fibrillation, mitral regurgitation, hypertension hyperlipidemia and history of alcoholism. Cardiac catheterization done during recent hospitalization showed normal coronaries. Patient presented to the emergency department with worsening shortness of breath. No reported chest pain. No leg edema. In the emergency, the patient was found to be in A-fib RVR, started on IV heparin and Cardizem drip for rate control. Subsequently, the patient started having episodes of bradycardia. Cardizem drip was discontinued. The patient was having significant bradycardia with hypotension and his heart rate was in the low 30s, A-fib rhythm. Elevated echocardiogram was done and it showed further impairment of the LV function with an EF of around 5 to 10%. There was global reduction of the LV systolic function. Cardiology was involved and the patient was taken to the [employer] [facility] and the patient was given a TVP set at the rate of 80. Following that, the patient got moved to the intensive care unit. Upon arrival, the patient was provided lethargic, short of breath, hypotensive. He was already on dopamine which is running at 5 mcg/kg/min. Blood gas showed a pH of 7.23 with a pCO2 of 43.8 and P02 234 and this was done on 100 % NRB. Based on the overall condition, the patient was intubated placed on ventilator. He is on propofol at 35 mcg/kg/min. UO is 100 cc/hr. He is on mechanical ventilator and he is on AC at a rate of 18 , TV 450, FI02 60 and PEEP of 10. Blood work showed a white cell count of 8.3, hemoglobin of 13.3 and a platelet count of 282. The patient has a sodium level of 135 potassium is at 5.4, bicarb is at 16, BUN is 20 with a creatinine of 1.1. proBNP level is more than 10,000. TSH is 4.4. LFTs are normal. UA is positive for white cells and leukocyte esterase with many bacteria. Patient was started on IV Rocephin. Postintubation chest x-ray shows evidence of pulmonary edema and bilateral pleural effusion.. Tube is in good location. There is evidence of pulm vascular congestion and moderate-sized bilateral pleural effusions. A triple- lumen catheter and arterial line was established. On 12/17/2024, the patient is being seen for a follow-up. The patient remains intubated on mechanical ventilator. This morning, the patient had a propofol running at 50 mcg/kg/min. The patient is calm and comfortable and successful mechanical ventilator. His assist-control mode at rate of 18, tidal volume of 450, FiO2 of 40% and PEEP of 10. The blood gas from today shows a pH of 7.42 with a pCO2 of 30 and pO2 of 242. Chest x-rayIs showing pulmonary vascular congestion/edema consistent with CHF. The patient has a TVP placed and the TVP is currently at a backup rate of 60. Meanwhile, the patient heart rate is improved and currently his heart rate is in the low 90s 100 range, still in atrial fibrillation the patient currently is on dobutamine 5 mcg/kg/min. Urine output is adequate. Afebrile. No pressors for now. White cell count is at 8 with a hemoglobin 12.2 and a platelet count of 239. Sodium is at 131, potassium is at 4.3, bicarb is at 19, BUN is 27 with a creatinine of 1.7 and the patient has sustained acute kidney injury. LFTs are mildly elevated including a mild elevation of the AST and ALT. Urine drug screen is positive for cocaine. The patient remains on IV Rocephin on an empiric basis pending further cultures. 12/18/2024, the patient is being seen for a follow-up. Remains intubated on mechanical ventilator, currently on propofol running at 50 mcg/kg/min,, comfortable and synchronous with the mechanical ventilator which is set at a rate of 18, tidal volume of 450, FiO2 40% with a PEEP of 5. Blood gas showed pH of 7.49 with a pCO2 of 28 and pO2 of 159. He remains in atrial fibrillation, rate is controlled and the patient remains on dobutamine at 5 mcg/kg/min. TVP backup is at 50. He is on vital HP at rate of 20 cc an hour. Chest x-ray is consistent with CHF with pulm vascular congestion and edema. The white cell count is 6.1, hemoglobin 12.3, platelet count of 225, sodium is at 137, BUN is 18 with a creatinine of 1 and a serum bicarb of 21. No fever. No other significant events overnight. 12/19/2024, the patient remains sedated on the mechanical ventilator. Sedation holiday was given and the patient was quite restless and agitated and was not following commands. This was reported yesterday and another sedation holiday will be done today. The patient remains on propofol running at 35 mcg/kg/min. The patient is on dobutamine at 5 mcg/kg/min. Remains on assist-control mode mechanical ventilation at rate of 12, tidal volume of 500, FiO2 35% with a PEEP of 5. Blood gas showed pH of 7.45 with a pCO2 of 38 and pO2 of 126. Fluid balance is +1.3 L over the past 24 hours. The patient was started on IV Lasix. The patient is also on metoprolol. The patient remains in atrial fibrillation. Metoprolol is being given at a dose of 50 mg p.o. and the dose has been modified to 3 times daily. Remains on anticoagulation with Eliquis. Remains on broad- spectrum antibiotics with IV Rocephin. Chest x-ray still consistent with pulmonary edema. He is afebrile. Patient was seen today on 12/20/2024, remains in the ICU, intubated and mechanically ventilated. Patient is on assist-control rate of 12 tidal volume 450 FiO2 35% and PEEP of 5. ABG showed a pO2 of 108 pCO2 42 pH of 7.51. Hence no changes were made in vent settings. Drips garcia, patient remains on dobutamine at 2.5 mg/kg/min Cleviprex at 1 mg/h, Precedex at 0.6 mcg/kg/h, propofol at 15 mcg/kg/min. Patient is on Lasix 40 mg IV push twice daily remains on Rocephin, and he remains on Eliquis. Nutrition garcia patient is receiving vital HP at 40 cc/h, however it is presently on hold because of high residual of over 800 cc. Patient has not been able to wean mostly because of the extreme agitation when he is off the propofol Lozano presently on Precedex and propofol. And the plan is to continue maximal dose of Precedex, and continue to try daily trials of weaning. Will try this again today, however remind you patient has a very low ejection fraction of 5 to 10%, patient has what seems to be a picture of nonischemic cardiomyopathy and LV dysfunction. Chest x-ray today showed mostly no major change, pleural effusions remain unchanged, patient has bibasilar opacities consistent with congestive heart failure. Underlying pneumonia is not entirely ruled out. WBC count is normal, no evidence of leukocytosis, his electrolytes are normal, bicarb is elevated at 34, BUN is 12 creatinine 0.7. Patient was seen today on 12/21/2024, patient remains in the ICU, intubated and mechanically ventilated, on assist-control rate of 12 tidal volume 450 FiO2 35% and PEEP of 5 ABG showed a pO2 of 110 pCO2 4 0 pH of 7.51 hence FiO2 was cut down to 30%. Patient remains on multiple drips including propofol at 30 mg/kg/m in dobutamine at 2.5 mg/kg/min amiodarone 1 mg/min he is also on vital HP at 20 cc/h Eliquis Lasix 40 mg IV push every 12 hours and he is on Rocephin empirically. Chest x-ray is showing improvement in his pulmonary edema. Clinically however the patient is about the same. Yesterday attempts were made to wean the patient from propofol and he became extremely agitated. Today he seems to be calm, however we will try again propofol and possibly use Precedex if necessary. WBC count is 9.1 hemoglobin 13.0 electrolytes are normal, renal profile is normal. Objective - Vital Signs Vital signs: Vital Signs Temp 98.1 F 12/21/24 12:00 Pulse 92 12/21/24 13:00 Resp 12 12/21/24 13:00 BP 105/92 12/21/24 13:00 Pulse Ox 100 12/21/24 13:00 FiO2 35 12/21/24 12:00 Intake & Output 12/20/24 12/21/24 12/21/24 18:59 06:59 18:59 Intake Total 650.149 708.399 738.645 Output Total 1185 550 330 Balance -534.851 158.399 408.645 Weight 68.9 kg 67.5 kg Intake: IV 270 273 211 0.9 Normal Saline @ KVO 220 240 140 0.9 Pressure bag 33 21 cefTRIAXone 2 gm In 50 50 Sodium Chloride 0.9% 50 ml @ 100 mls/hr IVPB Q24HR [facility] Rx#:[id number] Intake, IV Titration 250.149 115.399 327.645 Amount Clevidipine Butyrate 25 29.833 mg In Empty Bag 1 bag @ 1 MG/HR 2 mls/hr IV .Q24H [facility] Rx#:[id number] DOBUTamine DRIP 500 mg In 225.703 Dextrose/Water 1 250ml. bag @ Titrate IV .[id number] [facility] Rx#:[id number] Dexmedetomidine/0.9% NaCl 123.714 8.426 (Pmx) 400 mcg In Empty Bag 1 bag @ 0.2 MCG/KG/HR 3.585 mls/hr IV .Q24H [facility] Rx#:[id number] propofoL 1,000 mg In 96.602 115.399 93.516 Empty Bag 1 bag @ 15 MCG/ KG/MIN 6.532 mls/hr IV . [id number] [facility] Rx#:[id number] Tube Feeding 70 230 140 Other 60 90 60 Output: Urine 1185 550 330 Other: Voiding Method Indwelling Catheter Indwelling Catheter Indwelling Catheter ABP, PAP, CO, CI - Last Documented Arterial Blood Pressure 118/70 - Exam GENERAL: revealed a 74-year-old white male intubated, mechanically ventilated, sedated, on propofol. HEENT: Pupils are round and equally reacting to light. EOMI. No scleral icterus. No conjunctival pallor. Normocephalic, atraumatic. No pharyngeal erythema. No thyromegaly. Endotracheal tube and orogastric tubes are intact. CARDIOVASCULAR: Distant S1-S2, no S3 gallop, no murmur. PULMONARY: Symmetrical chest expansion, crackles at the bases no rhonchi no wheezes ABDOMEN: Soft, nontender, nondistended, normoactive bowel sounds. No palpable organomegaly. MUSCULOSKELETAL: No deformities and no limitation range of motion EXTREMITIES: No clubbing, trace of edema, no cyanosis. NEUROLOGICAL could not assess, patient is sedated on propofol. SKIN: No rashes. Psychiatric: Could not fully assess. On propofol, fully sedated - Labs CBC & Chem 7: 12/21/24 04:07 12/21/24 04:07 Labs: Abnormal Lab Results - Last 24 Hours (Table) 12/20/24 12/21/24 12/21/24 Range/Units 22:26 03:54 04:07 MCHC 30.6 L (31.0-37.0) g/dL Lymphocytes # 0.9 L (1.0-4.8) k/uL ABG pH 7.51 H (7.35-7.45) ABG pO2 110 H (83-108) mmHg ABG HCO3 32 H (21-25) mmol/L ABG Total CO2 34 H (19-24) mmol/L ABG O2 Saturation 98.9 H (94-97) % Sodium (137-145) mmol/L Potassium 3.4 L (3.5-5.1) mmol/L Chloride (98-107) mmol/L Carbon Dioxide (22-30) mmol/L POC Glucose (mg/dL) (70-110) mg/dL 12/21/24 12/21/24 Range/Units 04:07 12:43 MCHC (31.0-37.0) g/dL Lymphocytes # (1.0-4.8) k/uL ABG pH (7.35-7.45) ABG pO2 (83-108) mmHg ABG HCO3 (21-25) mmol/L ABG Total CO2 (19-24) mmol/L ABG O2 Saturation (94-97) % Sodium 136 L (137-145) mmol/L Potassium (3.5-5.1) mmol/L Chloride 97 L (98-107) mmol/L Carbon Dioxide 32 H (22-30) mmol/L POC Glucose (mg/dL) 118 H (70-110) mg/dL Assessment and Plan Assessment: Impression: Acute hypoxic respiratory failure secondary to cardiogenic shock and severe LV dysfunction, nonischemic in nature. Acute on chronic systolic congestive heart failure Nonischemic cardiomyopathy with normal cardiac catheterization but severe LV dysfunction ejection fraction of 5 to 10% Chronic atrial fibrillation, rate controlled. Moderate mitral regurgitation History of substance abuse/cocaine History of alcoholism, could be the leading cause of his cardiomyopathy and LV dysfunction Benign essential hypertension Acute urinary tract infection Dyslipidemia Benign prostatic hyperplasia Recommendation: Continue ventilatory support, may consider a trial of weaning again today off propofol may have to use Precedex again. Give the patient a trial of sedation holiday, and possibly assess weaning parameters Continue Dobutrex at 2.5 mcg/kg/min Continue Lasix 40 mg IV push twice daily, chest x-ray showing slight improvement in his pulmonary edema Continue Eliquis Continue empiric antibiotics/Rocephin Continue thiamine and CIWA protocol IV fluid to remain at KVO Updated his brother at bedside on his condition and made aware that the patient has severe LV dysfunction and overall prognosis is definitely poor and guarded. Remains critically ill Critical care time is 32 minutes Time with Patient: Greater than 30
[2024-12-21] MEDS: AMIODARONE 360 MG in DEXTROSE 5% IN WATER 200 ML IV ONE (13:19)
--- NOTE | 2024-12-21 14:17 | P.PN ---
Subjective Progress Note Date: 12/21/24 The patient is a 74-year-old male who is currently admitted with congestive heart failure secondary to nonischemic cardiomyopathy and paroxysmal atrial fibrillation. Initially the patient was started on amiodarone and beta-blockers for rate control when he became bradycardic. TVP was placed and has subse quently been discontinued. There have been attempts to wean from ventilator, however patient becomes extremely agitated. Patient developed A-fib with RVR and cardiology was notified. Patient was started on amiodarone drip. GENERAL: Well-appearing, well-nourished and in no acute distress. Currently sedated on ventilator NECK: Supple without JVD or thyromegaly. LUNGS: Breath sounds diminished to auscultation bilaterally. Respiration equal and unlabored. No wheezes, rales or rhonchi. HEART: Irregular rate and rhythm without murmurs, rubs or gallops. S1 and S2 heard. EXTREMITIES: Normal range of motion, no edema. No clubbing or cyanosis. Peripheral pulses intact and strong. TELEMETRY: Atrial fibrillation with heart rates in the 120s LABS: WBC 9.1, hemoglobin 13.0, Hemocrit 42.6, platelet 299, sodium 136, potassium 4.4, BUN 18, creatinine 0.94 IMPRESSION: Paroxysmal atrial fibrillation with RVR, improving Nonischemic cardiomyopathy, 5 to 10% Chronic systolic heart failure Moderate mitral regurgitation Symptomatic bradycardia, temporary venous pacer discontinued History of hypertension History of hyperlipidemia Anxiety Depression Daily alcohol use Drug abuse, positive for cocaine PLAN: Poor prognosis with multiple comorbid conditions Continue amiodarone drip and oral beta-margaux for rate control I am dictating on behalf of Dr Bertin De La Rosa's history/physical and assessm ent/plan. Update from Dr. De La Rosa Patient is a current alcoholic drinks regularly Current cocaine use Permanent atrial fibrillation Severe cardiomyopathy Congestive heart failure Intubated at this time Poor prognosis, likelihood of recovery of LV function is very poor Recommend DNR status with medical treatment with heart failure medications, discontinuation of alcohol cocaine and other drugs that he uses Objective - Vital Signs Vital signs: Vital Signs Temp 98.1 F 12/21/24 12:00 Pulse 86 12/21/24 14:00 Resp 12 12/21/24 14:00 BP 107/68 12/21/24 14:00 Pulse Ox 100 12/21/24 14:00 FiO2 35 12/21/24 12:00 Intake & Output 12/20/24 12/21/24 12/21/24 18:59 06:59 18:59 Intake Total 650.149 708.399 769.626 Output Total 1185 550 330 Balance -534.851 158.399 439.626 Weight 68.9 kg 67.5 kg Intake: IV 270 273 211 0.9 Normal Saline @ KVO 220 240 140 0.9 Pressure bag 33 21 cefTRIAXone 2 gm In 50 50 Sodium Chloride 0.9% 50 ml @ 100 mls/hr IVPB Q24HR [facility] Rx#:[id number] Intake, IV Titration 250.149 115.399 358.626 Amount Clevidipine Butyrate 25 29.833 mg In Empty Bag 1 bag @ 1 MG/HR 2 mls/hr IV .Q24H [facility] Rx#:[id number] DOBUTamine DRIP 500 mg In 225.703 Dextrose/Water 1 250ml. bag @ Titrate IV .[id number] [facility] Rx#:[id number] Dexmedetomidine/0.9% NaCl 123.714 39.407 (Pmx) 400 mcg In Empty Bag 1 bag @ 0.2 MCG/KG/HR 3.585 mls/hr IV .Q24H [facility] Rx#:[id number] propofoL 1,000 mg In 96.602 115.399 93.516 Empty Bag 1 bag @ 15 MCG/ KG/MIN 6.532 mls/hr IV . [id number] [facility] Rx#:[id number] Tube Feeding 70 230 140 Other 60 90 60 Output: Urine 1185 550 330 Other: Voiding Method Indwelling Catheter Indwelling Catheter Indwelling Catheter ABP, PAP, CO, CI - Last Documented Arterial Blood Pressure 132/76 - Labs CBC & Chem 7: 12/21/24 04:07 12/21/24 04:07 Labs: Abnormal Lab Results - Last 24 Hours (Table) 12/20/24 12/21/24 12/21/24 Range/Units 22:26 03:54 04:07 MCHC 30.6 L (31.0-37.0) g/dL Lymphocytes # 0.9 L (1.0-4.8) k/uL ABG pH 7.51 H (7.35-7.45) ABG pO2 110 H (83-108) mmHg ABG HCO3 32 H (21-25) mmol/L ABG Total CO2 34 H (19-24) mmol/L ABG O2 Saturation 98.9 H (94-97) % Sodium (137-145) mmol/L Potassium 3.4 L (3.5-5.1) mmol/L Chloride (98-107) mmol/L Carbon Dioxide (22-30) mmol/L POC Glucose (mg/dL) (70-110) mg/dL 12/21/24 12/21/24 Range/Units 04:07 12:43 MCHC (31.0-37.0) g/dL Lymphocytes # (1.0-4.8) k/uL ABG pH (7.35-7.45) ABG pO2 (83-108) mmHg ABG HCO3 (21-25) mmol/L ABG Total CO2 (19-24) mmol/L ABG O2 Saturation (94-97) % Sodium 136 L (137-145) mmol/L Potassium (3.5-5.1) mmol/L Chloride 97 L (98-107) mmol/L Carbon Dioxide 32 H (22-30) mmol/L POC Glucose (mg/dL) 118 H (70-110) mg/dL
--- NOTE | 2024-12-21 15:24 | P.PN ---
Subjective Progress Note Date: 12/21/24 patient is a 74-year-old gentleman past medical history significant for hypertension, hyperlipidemia, systolic CHF, paroxysmal A-fib, who presents the ER because of chest pain and shortness of breath. Patient was admitted in the hospital in November at which time patient was found to have cardiomyopathy and had cardiac cath done which showed normal coronaries. Patient was discharged to rehab facility from where he was discharged home a couple of days back. Patient stated ever since discharge he has been having chest pain in the central location, pressure-like, nonradiating, no aggravating or relieving factor associated with this chest pain. patient also complains of shortness of breath Present on exertion. Patient denies any fever or chills. There is no complaint of orthopnea or PND. Denies any swelling of feet. Because of this shortness of breath, patient came to the ER Initial lab work done in the ER showed WBC 8.2, hemoglobin 13.3, platelet count 282, sodium 139, potassium 5.4, BUN 20, creatinine 1.19, calcium 9.7, bilirubin 1.4, AST 23, ALT 21, troponin 0.012 Urine done showed large amount of leukocyte Estrace, urine WBC 182 EKG done in the ER showed heart rate of 159, irregular in rate and rhythm, no ST segment elevation or depression seen, no T-wave inversions seen. Chest x-ray done in the ER showed cardiomegaly, pulm vascular congestion and bilateral pleural effusion Patient admitted to internal medicine service 12/17. Patient seen and examined. Patient had a rapid response called yesterday afternoon for bradycardia at which time patient AV node blocking agents were discontinued. Patient continued to be bradycardic, cardiology took patient for cardiac catheter for temporary pacemaker insertion. Patient was transferred to ICU where patient was later on intubated because of respiratory distress 12/19/2024 --the patient is seen and evaluated in room at bedside; remains in ICU, sedated on the mechanical ventilator. The patient remains on propofol running at 35 mcg/kg/min. The patient is on dobutamine at 5 mcg/kg/min. Remains on assist-control mode mechanical ventilation. Blood gas showed pH of 7.45 with a pCO2 of 38 and pO2 of 126. Fluid balance is +1.3 L over the past 24 hours. The patient was started on IV Lasix. The patient is also on metoprolol. The patient remains in atrial fibrillation. Metoprolol is being given at a dose of 50 mg p.o. and the dose has been modified to 3 times daily. Remains on anticoagulation with Eliquis. Remains on broad- spectrum antibiotics with IV Rocephin. Chest x-ray still consistent with pulmonary edema. He is afebrile. -patient also have a significantly positive UA some mental status changes history of prostate disorder with prostatomegaly seen on CT component of UTI not entirely excluded likely due to gram-negative pathogen -patient is afebrile and his white count is normal, repeat UA and showed improvement compared to admission UA continue with Rocephin 12/20 Patient is awake and does not follow commands while he is intubated He is on restraints He is currently getting pelvic breaks and dobutamine drips Yesterday propofol was tried to wean him down he got agitated will during sedation holiday trying to attack staff. 12/21. Patient seen and examined. Blood work done today showed WBC 9.1, hemoglobin 13, platelet count 199 sodium 130, potassium 4.5, BUN 18, creatinine 0.94. Patient was given sedation holiday today. Family at the bedside, they were updated REVIEW OF SYSTEMS: Review of system cannot be obtained as patient is intubated PHYSICAL EXAMINATION: GENERAL: The patient is intubated HEENT: Pupils are round and equally reacting to light. EOMI. No scleral icterus. No conjunctival pallor. Normocephalic, atraumatic. No pharyngeal erythema. No thyromegaly. CARDIOVASCULAR: S1 and S2 present. No murmurs, rubs, or gallops. PULMONARY: Diminished breath sounds at bases, crackles audible bilateral ABDOMEN: Soft, nontender, nondistended, normoactive bowel sounds. No palpable organomegaly. MUSCULOSKELETAL: No joint swelling or deformity. EXTREMITIES: No cyanosis, clubbing, or pedal edema. NEUROLOGICAL: Gross neurological examination did not reveal any focal deficits. SKIN: No rashes. Assessment and plan Cardiogenic shock Bradycardia Acute hypoxic respiratory failure Acute on chronic systolic CHF, new echo done shows EF of 5 to 10% A-fib with RVR UTI Hyperkalemia History of hyperlipidemia History of hypertension History of chronic systolic CHF with EF of 20-25%, repeat echo shows EF of 5 to 10% Anxiety Depression Monitor vital signs Monitor CBC Monitor CMP Continue telemetry monitoring Aggressive bronchopulmonary hygiene Continue vent management Continue amiodarone drip Continue dobutamine Continue IV Rocephin Strict I's and O's, daily weights, continue IV Lasix 40 twice daily Cardiology following ICU following ID following Labs and medication were reviewed.. Continue same treatment. Continue with symptomatic treatment. Resume home medication. Monitor labs and vitals. DVT and GI prophylaxis. Further recommendations as per clinical course of the patient Dictation was produced using [employer] dictation software. please excuse any grammatical, word or spelling errors. Objective - Vital Signs Vital signs: Vital Signs Temp 99.5 F 12/21/24 08:00 Pulse 122 H 12/21/24 08:00 Resp 12 12/21/24 08:00 BP 100/73 12/21/24 08:00 Pulse Ox 100 12/21/24 08:00 FiO2 35 12/21/24 07:42 Intake & Output 12/20/24 12/21/24 12/21/24 18:59 06:59 18:59 Intake Total 650.149 708.399 116 Output Total 1185 550 95 Balance -534.851 158.399 21 Weight 68.9 kg 67.5 kg Intake: IV 270 273 46 0.9 Normal Saline @ KVO 220 240 40 0.9 Pressure bag 33 6 cefTRIAXone 2 gm In 50 Sodium Chloride 0.9% 50 ml @ 100 mls/hr IVPB Q24HR [facility] Rx#:[id number] Intake, IV Titration 250.149 115.399 Amount Clevidipine Butyrate 25 29.833 mg In Empty Bag 1 bag @ 1 MG/HR 2 mls/hr IV .Q24H [facility] Rx#:[id number] Dexmedetomidine/0.9% NaCl 123.714 (Pmx) 400 mcg In Empty Bag 1 bag @ 0.2 MCG/KG/HR 3.585 mls/hr IV .Q24H [facility] Rx#:[id number] propofoL 1,000 mg In 96.602 115.399 Empty Bag 1 bag @ 15 MCG/ KG/MIN 6.532 mls/hr IV . [id number] [facility] Rx#:[id number] Tube Feeding 70 230 40 Other 60 90 30 Output: Urine 1185 550 95 Other: Voiding Method Indwelling Catheter Indwelling Catheter ABP, PAP, CO, CI - Last Documented Arterial Blood Pressure 98/60 - Labs CBC & Chem 7: 12/21/24 04:07 12/21/24 04:07 Labs: Abnormal Lab Results - Last 24 Hours (Table) 12/20/24 12/21/24 12/21/24 Range/Units 22:26 03:54 04:07 MCHC 30.6 L (31.0-37.0) g/dL Lymphocytes # 0.9 L (1.0-4.8) k/uL ABG pH 7.51 H (7.35-7.45) ABG pO2 110 H (83-108) mmHg ABG HCO3 32 H (21-25) mmol/L ABG Total CO2 34 H (19-24) mmol/L ABG O2 Saturation 98.9 H (94-97) % Sodium (137-145) mmol/L Potassium 3.4 L (3.5-5.1) mmol/L Chloride (98-107) mmol/L Carbon Dioxide (22-30) mmol/L 12/21/24 Range/Units 04:07 MCHC (31.0-37.0) g/dL Lymphocytes # (1.0-4.8) k/uL ABG pH (7.35-7.45) ABG pO2 (83-108) mmHg ABG HCO3 (21-25) mmol/L ABG Total CO2 (19-24) mmol/L ABG O2 Saturation (94-97) % Sodium 136 L (137-145) mmol/L Potassium (3.5-5.1) mmol/L Chloride 97 L (98-107) mmol/L Carbon Dioxide 32 H (22-30) mmol/L
--- NOTE | 2024-12-21 16:13 | P.PN ---
Subjective Progress Note Date: 12/21/24 Principal diagnosis: Reason for follow-up is a UTI Patient is a 74-year-old male with a past medical history significant for COPD hypertension prostate disorder anxiety depression history of heavy alcohol abuse presenting to the hospital for evaluation of chest pain and shortness of breath, patient did have significant breath arrhythmia requiring transvenous pacer intubation admission to ICU also have a positive UA concerning for UTI prompting this consultation. On today's evaluation that is 12/21/2024, Patient is afebrile this morning patient remains to be intubated on the vent FiO2 is currently stable at 30% no significant purulent secretion through the ET sedation is slowly being weaned off no other changes reported by the nursing staff. Patient white count is 9.1, creatinine 0.94 Objective - Vital Signs Vital signs: Vital Signs Temp 98.1 F 12/21/24 12:00 Pulse 81 12/21/24 16:00 Resp 12 12/21/24 15:00 BP 119/89 12/21/24 15:00 Pulse Ox 100 12/21/24 15:00 FiO2 35 12/21/24 16:00 Intake & Output 12/20/24 12/21/24 12/21/24 18:59 06:59 18:59 Intake Total 650.149 708.399 872.357 Output Total 1185 550 455 Balance -534.851 158.399 417.357 Weight 68.9 kg 67.5 kg Intake: IV 270 273 257 0.9 Normal Saline @ KVO 220 240 180 0.9 Pressure bag 33 27 cefTRIAXone 2 gm In 50 50 Sodium Chloride 0.9% 50 ml @ 100 mls/hr IVPB Q24HR [facility] Rx#:[id number] Intake, IV Titration 250.149 115.399 375.357 Amount Clevidipine Butyrate 25 29.833 mg In Empty Bag 1 bag @ 1 MG/HR 2 mls/hr IV .Q24H [facility] Rx#:[id number] DOBUTamine DRIP 500 mg In 225.703 Dextrose/Water 1 250ml. bag @ Titrate IV .[id number] [facility] Rx#:[id number] Dexmedetomidine/0.9% NaCl 123.714 56.138 (Pmx) 400 mcg In Empty Bag 1 bag @ 0.2 MCG/KG/HR 3.585 mls/hr IV .Q24H [facility] Rx#:[id number] propofoL 1,000 mg In 96.602 115.399 93.516 Empty Bag 1 bag @ 15 MCG/ KG/MIN 6.532 mls/hr IV . [id number] [facility] Rx#:[id number] Tube Feeding 70 230 180 Other 60 90 60 Output: Urine 1185 550 455 Other: Voiding Method Indwelling Catheter Indwelling Catheter Indwelling Catheter ABP, PAP, CO, CI - Last Documented Arterial Blood Pressure 137/76 - Exam GENERAL DESCRIPTION: An elderly male intubated on the vent RESPIRATORY SYSTEM: Unlabored breathing , decreased breath sounds at bases HEART: S1 S2 regular rate and rhythm , ABDOMEN: Soft , no tenderness EXTREMITIES: No edema feet - Labs CBC & Chem 7: 12/21/24 04:07 12/21/24 04:07 Labs: Abnormal Lab Results - Last 24 Hours (Table) 12/20/24 12/21/24 12/21/24 Range/Units 22:26 03:54 04:07 MCHC 30.6 L (31.0-37.0) g/dL Lymphocytes # 0.9 L (1.0-4.8) k/uL ABG pH 7.51 H (7.35-7.45) ABG pO2 110 H (83-108) mmHg ABG HCO3 32 H (21-25) mmol/L ABG Total CO2 34 H (19-24) mmol/L ABG O2 Saturation 98.9 H (94-97) % Sodium (137-145) mmol/L Potassium 3.4 L (3.5-5.1) mmol/L Chloride (98-107) mmol/L Carbon Dioxide (22-30) mmol/L POC Glucose (mg/dL) (70-110) mg/dL 12/21/24 12/21/24 Range/Units 04:07 12:43 MCHC (31.0-37.0) g/dL Lymphocytes # (1.0-4.8) k/uL ABG pH (7.35-7.45) ABG pO2 (83-108) mmHg ABG HCO3 (21-25) mmol/L ABG Total CO2 (19-24) mmol/L ABG O2 Saturation (94-97) % Sodium 136 L (137-145) mmol/L Potassium (3.5-5.1) mmol/L Chloride 97 L (98-107) mmol/L Carbon Dioxide 32 H (22-30) mmol/L POC Glucose (mg/dL) 118 H (70-110) mg/dL Assessment and Plan (1) UTI (urinary tract infection) Current Visit: Yes Status: Acute Code(s): N39.0 - URINARY TRACT INFECTION, SITE NOT SPECIFIED SNOMED Code(s): 46337151 Plan: 1patient presented to hospital with increasing shortness of breath which is more likely underlying cardiac etiology as patient noticed to be in A-fib with RVR subsequent getting to bradycardia arrhythmia for the patient being transferred to ICU as per discussion with admitting physician 2-patient also have a significantly positive UA some mental status changes history of prostate disorder with prostatomegaly seen on CT component of UTI not entirely excluded likely due to gram-negative pathogen 3-patient is afebrile and his white count is normal, 4patient to continue with Rocephin and continue supportive care Dictation was produced using [employer] dictation software. please excuse any grammatical, word or spelling errors. Time with Patient: Less than 30
[2024-12-21] MEDS ORDERED: AMIODARONE 450 MG in DEXTROSE 5% IN WATER 250 ML IV SCH (17:00)
[2024-12-21 17:37] LABS: Glucose,Whole Blood 97 mg/dL (70-110)
[2024-12-21 23:12] LABS: Glucose,Whole Blood 122 mg/dL (70-110)
[2024-12-22 04:56] LABS: ABG Base Excess 10.3 mmol/L; ABG HCO3 35 mmol/L (21-25); ABG Oxygen Saturation 98.4 % (94-97); ABG PCO2 43 mmHg (35-45); ABG PH 7.51 (7.35-7.45); ABG PO2 100 mmHg (83-108); ABG TCO2 36 mmol/L (19-24)
[2024-12-22 04:58] LABS: Allen Test Performed? no
[2024-12-22 05:06] LABS: Basophils % (A) 0 %; Eosinophils # (A) 0.1 k/uL (0-0.7); Eosinophils % (A) 1 %; HCT 39.6 % (39.0-53.0); HGB 12.7 gm/dL (13.0-17.5); Lymphocytes # (A) 0.8 k/uL (1.0-4.8); Lymphocytes % (A) 9 %; MCH 30.4 pg (25.0-35.0); MCV 95.2 fL (80.0-100.0); Mean Platelet Volume 8.2; Monocytes # (A) 0.6 k/uL (0-1.0); Monocytes % (A) 7 %; Neutrophils # (A) 7.7 k/uL (1.3-7.7); Neutrophils % (A) 81 %; Platelet Count 265 k/uL (150-450); RBC 4.16 m/uL (4.30-5.90); RDW 13.8 % (11.5-15.5); WBC 9.4 k/uL (3.8-10.6)
[2024-12-22 05:19] LABS: African American GFR (CKD) >90 (>60 ml/min/1.73 sqM); Anion Gap 6 mmol/L; Blood Urea Nitrogen 21 mg/dL (9-20); Calcium 8.7 mg/dL (8.4-10.2); Carbon Dioxide 34 mmol/L (22-30); Chloride 96 mmol/L (98-107); Glucose 114 mg/dL (74-99); Magnesium 1.7 mg/dL (1.6-2.3); Non-African American GFR(CKD) >90 (>60 ml/min/1.73 sqM); Potassium 3.5 mmol/L (3.5-5.1); Sodium 136 mmol/L (137-145)
[2024-12-22] MEDS ORDERED: Magnesium Replacement Protocol 1 EACH MISC MISCELLANE PRN (06:21)
[2024-12-22] MEDS: POTASSIUM BICARBONATE/CIT AC 20 MEQ TABLET.EFF NG-TUBE SCH (06:28)
[2024-12-22] MEDS: MAGNESIUM SULFATE-D5W PMX 1 GM in DEXTROSE/WATER 1 100ML.BAG IVPB ONE (06:28)
[2024-12-22 06:48] LABS: Glucose,Whole Blood 100 mg/dL (70-110)
--- NOTE | 2024-12-22 08:05 | XR ---
EXAMINATION TYPE: XR chest 1V portable DATE OF EXAM: 12/22/2024 5:27 AM COMPARISON: 12/21/2024 CLINICAL INDICATION: Male, 74 years old with history of mechanical ventilation, FINDINGS: Indwelling tubes and catheters are unchanged. No change in bibasilar opacities. Stable appearance of the cardio-mediastinal structures at this time. Pleural effusion unchanged. IMPRESSION: 1. Stable portable chest. Clinical correlation and follow up until resolution is recommended. [facility], , 12/22/2024 8:03 AM
[2024-12-22 10:44] LABS: ABG Base Excess 10.7 mmol/L; ABG HCO3 35 mmol/L (21-25); ABG Oxygen Saturation 98.6 % (94-97); ABG PCO2 45 mmHg (35-45); ABG PO2 104 mmHg (83-108); ABG TCO2 37 mmol/L (19-24); Allen Test Performed? Yes
--- NOTE | 2024-12-22 12:25 | P.PN ---
Subjective Progress Note Date: 12/22/24 patient is a 74-year-old gentleman past medical history significant for hypertension, hyperlipidemia, systolic CHF, paroxysmal A-fib, who presents the ER because of chest pain and shortness of breath. Patient was admitted in the hospital in November at which time patient was found to have cardiomyopathy and had cardiac cath done which showed normal coronaries. Patient was discharged to rehab facility from where he was discharged home a couple of days back. Patient stated ever since discharge he has been having chest pain in the central location, pressure-like, nonradiating, no aggravating or relieving factor associated with this chest pain. patient also complains of shortness of breath Present on exertion. Patient denies any fever or chills. There is no complaint of orthopnea or PND. Denies any swelling of feet. Because of this shortness of breath, patient came to the ER Initial lab work done in the ER showed WBC 8.2, hemoglobin 13.3, platelet count 282, sodium 139, potassium 5.4, BUN 20, creatinine 1.19, calcium 9.7, bilirubin 1.4, AST 23, ALT 21, troponin 0.012 Urine done showed large amount of leukocyte Estrace, urine WBC 182 EKG done in the ER showed heart rate of 159, irregular in rate and rhythm, no ST segment elevation or depression seen, no T-wave inversions seen. Chest x-ray done in the ER showed cardiomegaly, pulm vascular congestion and bilateral pleural effusion Patient admitted to internal medicine service 12/17. Patient seen and examined. Patient had a rapid response called yesterday afternoon for bradycardia at which time patient AV node blocking agents were discontinued. Patient continued to be bradycardic, cardiology took patient for cardiac catheter for temporary pacemaker insertion. Patient was transferred to ICU where patient was later on intubated because of respiratory distress 12/19/2024 --the patient is seen and evaluated in room at bedside; remains in ICU, sedated on the mechanical ventilator. The patient remains on propofol running at 35 mcg/kg/min. The patient is on dobutamine at 5 mcg/kg/min. Remains on assist-control mode mechanical ventilation. Blood gas showed pH of 7.45 with a pCO2 of 38 and pO2 of 126. Fluid balance is +1.3 L over the past 24 hours. The patient was started on IV Lasix. The patient is also on metoprolol. The patient remains in atrial fibrillation. Metoprolol is being given at a dose of 50 mg p.o. and the dose has been modified to 3 times daily. Remains on anticoagulation with Eliquis. Remains on broad- spectrum antibiotics with IV Rocephin. Chest x-ray still consistent with pulmonary edema. He is afebrile. -patient also have a significantly positive UA some mental status changes history of prostate disorder with prostatomegaly seen on CT component of UTI not entirely excluded likely due to gram-negative pathogen -patient is afebrile and his white count is normal, repeat UA and showed improvement compared to admission UA continue with Rocephin 12/20 Patient is awake and does not follow commands while he is intubated He is on restraints He is currently getting pelvic breaks and dobutamine drips Yesterday propofol was tried to wean him down he got agitated will during sedation holiday trying to attack staff. 12/21. Patient seen and examined. Blood work done today showed WBC 9.1, hemoglobin 13, platelet count 199 sodium 130, potassium 4.5, BUN 18, creatinine 0.94. Patient was given sedation holiday today. Family at the bedside, they were updated 12/22. Patient seen and examined.Blood work this morning showed WBC 9.4, hemoglobin 0.7, platelet count 265, sodium 137 potassium 3.5, BUN 21, creatinine 0.77. Patient was extubated this morning, brother at the bedside. Patient at this time is stating that she does not want any more medications. Discussed with brother, hospice will be consulted REVIEW OF SYSTEMS: Denies chest pain. Denies shortness of breath PHYSICAL EXAMINATION: GENERAL: The patient is alert HEENT: Pupils are round and equally reacting to light. EOMI. No scleral icterus. No conjunctival pallor. Normocephalic, atraumatic. No pharyngeal erythema. No thyromegaly. CARDIOVASCULAR: S1 and S2 present. No murmurs, rubs, or gallops. PULMONARY: Diminished breath sounds at bases, crackles audible bilateral ABDOMEN: Soft, nontender, nondistended, normoactive bowel sounds. No palpable organomegaly. MUSCULOSKELETAL: No joint swelling or deformity. EXTREMITIES: No cyanosis, clubbing, or pedal edema. NEUROLOGICAL: Gross neurological examination did not reveal any focal deficits. SKIN: No rashes. Assessment and plan Cardiogenic shock Bradycardia Acute hypoxic respiratory failure Acute on chronic systolic CHF, new echo done shows EF of 5 to 10% A-fib with RVR UTI Hyperkalemia History of hyperlipidemia History of hypertension History of chronic systolic CHF with EF of 20-25%, repeat echo shows EF of 5 to 10% Anxiety Depression Monitor vital signs Monitor CBC Monitor CMP Continue telemetry monitoring Aggressive bronchopulmonary hygiene Continue amiodarone drip Continue dobutamine Continue IV Rocephin Strict I's and O's, daily weights, continue IV Lasix 40 twice daily Cardiology following ICU following ID following Patient has very poor prognosis, patient family updated about it. Hospice consulted Labs and medication were reviewed.. Continue same treatment. Continue with symptomatic treatment. Resume home medication. Monitor labs and vitals. DVT and GI prophylaxis. Further recommendations as per clinical course of the patient Dictation was produced using [employer] dictation software. please excuse any grammatical, word or spelling errors. Objective - Vital Signs Vital signs: Vital Signs Temp 98.8 F 12/22/24 08:00 Pulse 90 12/22/24 08:12 Resp 18 12/22/24 08:00 BP 130/89 12/22/24 08:00 Pulse Ox 99 12/22/24 08:00 FiO2 3 12/22/24 08:05 Intake & Output 12/21/24 12/22/24 12/22/24 18:59 06:59 18:59 Intake Total 1034.942 889.739 134.246 Output Total 555 845 65 Balance 479.942 44.739 69.246 Weight 67.5 kg 71.6 kg Intake: IV 326 376 46 0.9 Normal Saline @ KVO 240 240 40 0.9 Pressure bag 36 36 6 cefTRIAXone 2 gm In 50 100 Sodium Chloride 0.9% 50 ml @ 100 mls/hr IVPB Q24HR [facility] Rx#:[id number] Intake, IV Titration 378.942 73.739 8.246 Amount DOBUTamine DRIP 500 mg In 225.703 Dextrose/Water 1 250ml. bag @ Titrate IV .[id number] [facility] Rx#:[id number] Dexmedetomidine/0.9% NaCl 59.723 73.739 8.246 (Pmx) 400 mcg In Empty Bag 1 bag @ 0.2 MCG/KG/HR 3.585 mls/hr IV .Q24H [facility] Rx#:[id number] propofoL 1,000 mg In 93.516 Empty Bag 1 bag @ 15 MCG/ KG/MIN 6.532 mls/hr IV . [id number] [facility] Rx#:[id number] Oral 0 Tube Feeding 240 260 50 Other 90 180 30 Output: Urine 555 845 65 Other: Voiding Method Indwelling Catheter Indwelling Catheter ABP, PAP, CO, CI - Last Documented Arterial Blood Pressure 104/61 - Labs CBC & Chem 7: 12/22/24 04:53 12/22/24 04:53 Labs: Abnormal Lab Results - Last 24 Hours (Table) 12/21/24 12/21/24 12/22/24 Range/Units 12:43 23:11 04:52 RBC (4.30-5.90) m/uL Hgb (13.0-17.5) gm/dL Lymphocytes # (1.0-4.8) k/uL ABG pH 7.51 H (7.35-7.45) ABG HCO3 35 H (21-25) mmol/L ABG Total CO2 36 H (19-24) mmol/L ABG O2 Saturation 98.4 H (94-97) % Sodium (137-145) mmol/L Chloride (98-107) mmol/L Carbon Dioxide (22-30) mmol/L BUN (9-20) mg/dL Glucose (74-99) mg/dL POC Glucose (mg/dL) 118 H 122 H (70-110) mg/dL 12/22/24 12/22/24 Range/Units 04:53 04:53 RBC 4.16 L (4.30-5.90) m/uL Hgb 12.7 L (13.0-17.5) gm/dL Lymphocytes # 0.8 L (1.0-4.8) k/uL ABG pH (7.35-7.45) ABG HCO3 (21-25) mmol/L ABG Total CO2 (19-24) mmol/L ABG O2 Saturation (94-97) % Sodium 136 L (137-145) mmol/L Chloride 96 L (98-107) mmol/L Carbon Dioxide 34 H (22-30) mmol/L BUN 21 H (9-20) mg/dL Glucose 114 H (74-99) mg/dL POC Glucose (mg/dL) (70-110) mg/dL
[2024-12-22 12:39] LABS: Glucose,Whole Blood 99 mg/dL (70-110)
--- NOTE | 2024-12-22 13:17 | P.PN ---
Subjective Progress Note Date: 12/22/24 Principal diagnosis: Acute hypoxic respiratory failure secondary to cardiogenic shock requiring intubation mechanical ventilation. 74-year-old male patient, known history of severe cardiomyopathy with an ejection fraction of 20%, nonischemic cardiomyopathy, known history of chronic atrial fibrillation, mitral regurgitation, hypertension hyperlipidemia and history of alcoholism. Cardiac catheterization done during recent hospitalization showed normal coronaries. Patient presented to the emergency department with worsening shortness of breath. No reported chest pain. No leg edema. In the emergency, the patient was found to be in A-fib RVR, started on IV heparin and Cardizem drip for rate control. Subsequently, the patient started having episodes of bradycardia. Cardizem drip was discontinued. The patient was having significant bradycardia with hypotension and his heart rate was in the low 30s, A-fib rhythm. Elevated echocardiogram was done and it showed further impairment of the LV function with an EF of around 5 to 10%. There was global reduction of the LV systolic function. Cardiology was involved and the patient was taken to the [facility] and the patient was given a TVP set at the rate of 80. Following that, the patient got moved to the intensive care unit. Upon arrival, the patient was provided lethargic, short of breath, hypotensive. He was already on dopamine which is running at 5 mcg/kg/min. Blood gas showed a pH of 7.23 with a pCO2 of 43.8 and P02 234 and this was done on 100 % NRB. Based on the overall condition, the patient was intubated placed on ventilator. He is on propofol at 35 mcg/kg/min. UO is 100 cc/hr. He is on mechanical ventilator and he is on AC at a rate of 18 , TV 450, FI02 60 and PEEP of 10. Blood work showed a white cell count of 8.3, hemoglobin of 13.3 and a platelet count of 282. The patient has a sodium level of 135 potassium is at 5.4, bicarb is at 16, BUN is 20 with a creatinine of 1.1. proBNP level is more than 10,000. TSH is 4.4. LFTs are normal. UA is positive for white cells and leukocyte esterase with many bacteria. Patient was started on IV Rocephin. Postintubation chest x-ray shows evidence of pulmonary edema and bilateral pleural effusion.. Tube is in good location. There is evidence of pulm vascular congestion and moderate-sized bilateral pleural effusions. A triple- lumen catheter and arterial line was established. On 12/17/2024, the patient is being seen for a follow-up. The patient remains intubated on mechanical ventilator. This morning, the patient had a propofol running at 50 mcg/kg/min. The patient is calm and comfortable and successful mechanical ventilator. His assist-control mode at rate of 18, tidal volume of 450, FiO2 of 40% and PEEP of 10. The blood gas from today shows a pH of 7.42 with a pCO2 of 30 and pO2 of 242. Chest x-rayIs showing pulmonary vascular congestion/edema consistent with CHF. The patient has a TVP placed and the TVP is currently at a backup rate of 60. Meanwhile, the patient heart rate is improved and currently his heart rate is in the low 90s 100 range, still in atrial fibrillation the patient currently is on dobutamine 5 mcg/kg/min. Urine output is adequate. Afebrile. No pressors for now. White cell count is at 8 with a hemoglobin 12.2 and a platelet count of 239. Sodium is at 131, potassium is at 4.3, bicarb is at 19, BUN is 27 with a creatinine of 1.7 and the patient has sustained acute kidney injury. LFTs are mildly elevated including a mild elevation of the AST and ALT. Urine drug screen is positive for cocaine. The patient remains on IV Rocephin on an empiric basis pending further cultures. 12/18/2024, the patient is being seen for a follow-up. Remains intubated on mechanical ventilator, currently on propofol running at 50 mcg/kg/min,, comfortable and synchronous with the mechanical ventilator which is set at a rate of 18, tidal volume of 450, FiO2 40% with a PEEP of 5. Blood gas showed pH of 7.49 with a pCO2 of 28 and pO2 of 159. He remains in atrial fibrillation, rate is controlled and the patient remains on dobutamine at 5 mcg/kg/min. TVP backup is at 50. He is on vital HP at rate of 20 cc an hour. Chest x-ray is consistent with CHF with pulm vascular congestion and edema. The white cell count is 6.1, hemoglobin 12.3, platelet count of 225, sodium is at 137, BUN is 18 with a creatinine of 1 and a serum bicarb of 21. No fever. No other significant events overnight. 12/19/2024, the patient remains sedated on the mechanical ventilator. Sedation holiday was given and the patient was quite restless and agitated and was not following commands. This was reported yesterday and another sedation holiday will be done today. The patient remains on propofol running at 35 mcg/kg/min. The patient is on dobutamine at 5 mcg/kg/min. Remains on assist-control mode mechanical ventilation at rate of 12, tidal volume of 500, FiO2 35% with a PEEP of 5. Blood gas showed pH of 7.45 with a pCO2 of 38 and pO2 of 126. Fluid balance is +1.3 L over the past 24 hours. The patient was started on IV Lasix. The patient is also on metoprolol. The patient remains in atrial fibrillation. Metoprolol is being given at a dose of 50 mg p.o. and the dose has been modified to 3 times daily. Remains on anticoagulation with Eliquis. Remains on broad- spectrum antibiotics with IV Rocephin. Chest x-ray still consistent with pulmonary edema. He is afebrile. Patient was seen today on 12/20/2024, remains in the ICU, intubated and mechanically ventilated. Patient is on assist-control rate of 12 tidal volume 450 FiO2 35% and PEEP of 5. ABG showed a pO2 of 108 pCO2 42 pH of 7.51. Hence no changes were made in vent settings. Drips garcia, patient remains on dobutamine at 2.5 mg/kg/min Cleviprex at 1 mg/h, Precedex at 0.6 mcg/kg/h, propofol at 15 mcg/kg/min. Patient is on Lasix 40 mg IV push twice daily remains on Rocephin, and he remains on Eliquis. Nutrition garcia patient is receiving vital HP at 40 cc/h, however it is presently on hold because of high residual of over 800 cc. Patient has not been able to wean mostly because of the extreme agitation when he is off the propofol Lozano presently on Precedex and propofol. And the plan is to continue maximal dose of Precedex, and continue to try daily trials of weaning. Will try this again today, however remind you patient has a very low ejection fraction of 5 to 10%, patient has what seems to be a picture of nonischemic cardiomyopathy and LV dysfunction. Chest x-ray today showed mostly no major change, pleural effusions remain unchanged, patient has bibasilar opacities consistent with congestive heart failure. Underlying pneumonia is not entirely ruled out. WBC count is normal, no evidence of leukocytosis, his electrolytes are normal, bicarb is elevated at 34, BUN is 12 creatinine 0.7. Patient was seen today on 12/21/2024, patient remains in the ICU, intubated and mechanically ventilated, on assist-control rate of 12 tidal volume 450 FiO2 35% and PEEP of 5 ABG showed a pO2 of 110 pCO2 4 0 pH of 7.51 hence FiO2 was cut down to 30%. Patient remains on multiple drips including propofol at 30 mg/kg/m in dobutamine at 2.5 mg/kg/min amiodarone 1 mg/min he is also on vital HP at 20 cc/h Eliquis Lasix 40 mg IV push every 12 hours and he is on Rocephin empirically. Chest x-ray is showing improvement in his pulmonary edema. Clinically however the patient is about the same. Yesterday attempts were made to wean the patient from propofol and he became extremely agitated. Today he seems to be calm, however we will try again propofol and possibly use Precedex if necessary. WBC count is 9.1 hemoglobin 13.0 electrolytes are normal, renal profile is normal. Patient was seen today on 12/22/2024, patient remains in the ICU, intubated and mechanically ventilated. He is on assist-control rate of 12 tidal volume 450 FiO2 30% PEEP of 5 ABG showed a pO2 of 100 pCO2 43 pH of 7.51. Patient remains on dobutamine at 2.5 mcg/kg/min, continues to have decent urine output with dobutamine and on Lasix. Patient remains on Rocephin empirically, and remind you patient has a very low ejection fraction of 5 to 10%. His chest x-ray today showed evidence of pulmonary edema, he did receive Lasix earlier today, and he was responding to Lasix. The overall clinical picture is still critical in the situation, however considering the patient is off all narcotics, off sedatives, off Precedex, I will keep him on dobutamine, and I will give the patient a trial of weaning using pressure support of 10 and CPAP. If tolerated, and if his ABG is noted to be reasonable, then may consider weaning and extubating this patient. Chest x-ray was reviewed is consistent with pulmonary edema WBC count is 9.4 hemoglobin 12.7, electrolytes and basic metabolic profile are normal. Objective - Vital Signs Vital signs: Vital Signs Temp 99.7 F H 12/22/24 12:00 Pulse 115 H 12/22/24 12:00 Resp 23 12/22/24 12:00 BP 110/74 12/22/24 11:00 Pulse Ox 98 12/22/24 12:00 FiO2 30 12/22/24 09:58 Intake & Output 12/21/24 12/22/24 12/22/24 18:59 06:59 18:59 Intake Total 1034.942 889.739 229.175 Output Total 555 845 675 Balance 479.942 44.739 -445.825 Weight 67.5 kg 71.6 kg Intake: IV 326 376 138 0.9 Normal Saline @ KVO 240 240 120 0.9 Pressure bag 36 36 18 cefTRIAXone 2 gm In 50 100 Sodium Chloride 0.9% 50 ml @ 100 mls/hr IVPB Q24HR [facility] Rx#:[id number] Intake, IV Titration 378.942 73.739 11.175 Amount DOBUTamine DRIP 500 mg In 225.703 Dextrose/Water 1 250ml. bag @ Titrate IV .[id number] [facility] Rx#:[id number] Dexmedetomidine/0.9% NaCl 59.723 73.739 11.175 (Pmx) 400 mcg In Empty Bag 1 bag @ 0.2 MCG/KG/HR 3.585 mls/hr IV .Q24H [facility] Rx#:[id number] propofoL 1,000 mg In 93.516 Empty Bag 1 bag @ 15 MCG/ KG/MIN 6.532 mls/hr IV . [id number] [facility] Rx#:[id number] Oral 0 Tube Feeding 240 260 50 Other 90 180 30 Output: Urine 555 845 675 Other: Voiding Method Indwelling Catheter Indwelling Catheter Indwelling Catheter ABP, PAP, CO, CI - Last Documented Arterial Blood Pressure 100/48 - Exam GENERAL: revealed a 74-year-old white male intubated, mechanically ventilated, off sedation. HEENT: Pupils are round and equally reacting to light. EOMI. No scleral icterus. No conjunctival pallor. Normocephalic, atraumatic. No pharyngeal erythema. No thyromegaly. Endotracheal tube and orogastric tubes are intact. CARDIOVASCULAR: Distant S1-S2, no S3 gallop, no murmur. PULMONARY: Symmetrical chest expansion, crackles at the bases no rhonchi no wheezes ABDOMEN: Soft, nontender, nondistended, normoactive bowel sounds. No palpable organomegaly. MUSCULOSKELETAL: No deformities and no limitation range of motion EXTREMITIES: No clubbing, trace of edema, no cyanosis. NEUROLOGICAL: Arousable, follows simple instructions, seems to be quite awake. SKIN: No rashes. Psychiatric: Normal mood affect and no mental status examination. - Labs CBC & Chem 7: 12/22/24 04:53 12/22/24 04:53 Labs: Abnormal Lab Results - Last 24 Hours (Table) 12/21/24 12/22/24 12/22/24 Range/Units 23:11 04:52 04:53 RBC 4.16 L (4.30-5.90) m/uL Hgb 12.7 L (13.0-17.5) gm/dL Lymphocytes # 0.8 L (1.0-4.8) k/uL ABG pH 7.51 H (7.35-7.45) ABG HCO3 35 H (21-25) mmol/L ABG Total CO2 36 H (19-24) mmol/L ABG O2 Saturation 98.4 H (94-97) % Hemoglobin (13.0-17.5) gm/dL Sodium (137-145) mmol/L Chloride (98-107) mmol/L Carbon Dioxide (22-30) mmol/L BUN (9-20) mg/dL Glucose (74-99) mg/dL POC Glucose (mg/dL) 122 H (70-110) mg/dL 12/22/24 12/22/24 Range/Units 04:53 10:42 RBC (4.30-5.90) m/uL Hgb (13.0-17.5) gm/dL Lymphocytes # (1.0-4.8) k/uL ABG pH 7.50 H (7.35-7.45) ABG HCO3 35 H (21-25) mmol/L ABG Total CO2 37 H (19-24) mmol/L ABG O2 Saturation 98.6 H (94-97) % Hemoglobin 12.7 L (13.0-17.5) gm/dL Sodium 136 L (137-145) mmol/L Chloride 96 L (98-107) mmol/L Carbon Dioxide 34 H (22-30) mmol/L BUN 21 H (9-20) mg/dL Glucose 114 H (74-99) mg/dL POC Glucose (mg/dL) (70-110) mg/dL Assessment and Plan Assessment: Impression: Acute hypoxic respiratory failure secondary to cardiogenic shock and severe LV dysfunction, nonischemic in nature. Acute on chronic systolic congestive heart failure Nonischemic cardiomyopathy with normal cardiac catheterization but severe LV dysfunction ejection fraction of 5 to 10% Chronic atrial fibrillation, rate controlled. Moderate mitral regurgitation History of substance abuse/cocaine History of alcoholism, could be the leading cause of his cardiomyopathy and LV dysfunction Benign essential hypertension Acute urinary tract infection Dyslipidemia Benign prostatic hyperplasia Recommendation: Continue ventilatory support, however we will try the patient on a trial of pressure support and CPAP and decide whether he is weanable and could be extubated. Continue Dobutrex at 2.5 mcg/kg/min Continue diuretics, patient did receive Lasix earlier today and he is responding to Lasix Continue Eliquis Continue empiric antibiotics/Rocephin Continue thiamine and CIWA protocol Continue IV fluid at KVO Patient remains critically ill Overall long-term prognosis is extremely poor considering his severe nonischemic cardiomyopathy and LV dysfunction. Will continue to follow Critical care time is 32 minutes Time with Patient: Greater than 30
[2024-12-22] MEDS: METOPROLOL TARTRATE 50 MG TAB PO SCH (15:24)
[2024-12-22] MEDS: METOPROLOL TARTRATE 5 MG/5 ML VIAL IVP SCH (15:57)
--- NOTE | 2024-12-22 16:58 | P.PN ---
Subjective Progress Note Date: 12/22/24 Principal diagnosis: Reason for follow-up is a UTI Patient is a 74-year-old male with a past medical history significant for COPD hypertension prostate disorder anxiety depression history of heavy alcohol abuse presenting to the hospital for evaluation of chest pain and shortness of breath, patient did have significant breath arrhythmia requiring transvenous pacer intubation admission to ICU also have a positive UA concerning for UTI prompting this consultation. On today's evaluation that is 12/22/2024,the patient has been extubated and is currently breathing comfortably on nasal oxygen patient is afebrile this morning no chest pain no vomiting diarrhea changes reported. Patient white count is 9.4 creatinine 0.77 Objective - Vital Signs Vital signs: Vital Signs Temp 99.7 F H 12/22/24 12:00 Pulse 115 H 12/22/24 12:00 Resp 23 12/22/24 12:00 BP 110/74 12/22/24 11:00 Pulse Ox 98 12/22/24 12:00 FiO2 30 12/22/24 09:58 Intake & Output 12/21/24 12/22/24 12/22/24 18:59 06:59 18:59 Intake Total 1034.942 889.739 229.175 Output Total 555 845 675 Balance 479.942 44.739 -445.825 Weight 67.5 kg 71.6 kg Intake: IV 326 376 138 0.9 Normal Saline @ KVO 240 240 120 0.9 Pressure bag 36 36 18 cefTRIAXone 2 gm In 50 100 Sodium Chloride 0.9% 50 ml @ 100 mls/hr IVPB Q24HR [facility] Rx#:[id number] Intake, IV Titration 378.942 73.739 11.175 Amount DOBUTamine DRIP 500 mg In 225.703 Dextrose/Water 1 250ml. bag @ Titrate IV .[id number] [facility] Rx#:[id number] Dexmedetomidine/0.9% NaCl 59.723 73.739 11.175 (Pmx) 400 mcg In Empty Bag 1 bag @ 0.2 MCG/KG/HR 3.585 mls/hr IV .Q24H [facility] Rx#:[id number] propofoL 1,000 mg In 93.516 Empty Bag 1 bag @ 15 MCG/ KG/MIN 6.532 mls/hr IV . [id number] [facility] Rx#:[id number] Oral 0 Tube Feeding 240 260 50 Other 90 180 30 Output: Urine 371 653 575 Other: Voiding Method Indwelling Catheter Indwelling Catheter Indwelling Catheter ABP, PAP, CO, CI - Last Documented Arterial Blood Pressure 100/48 - Exam GENERAL DESCRIPTION: An elderly male lying in bed in no distress RESPIRATORY SYSTEM: Unlabored breathing , decreased breath sounds at bases HEART: S1 S2 regular rate and rhythm , ABDOMEN: Soft , no tenderness EXTREMITIES: No edema feet - Labs CBC & Chem 7: 12/22/24 04:53 12/22/24 04:53 Labs: Abnormal Lab Results - Last 24 Hours (Table) 12/21/24 12/22/24 12/22/24 Range/Units 23:11 04:52 04:53 RBC 4.16 L (4.30-5.90) m/uL Hgb 12.7 L (13.0-17.5) gm/dL Lymphocytes # 0.8 L (1.0-4.8) k/uL ABG pH 7.51 H (7.35-7.45) ABG HCO3 35 H (21-25) mmol/L ABG Total CO2 36 H (19-24) mmol/L ABG O2 Saturation 98.4 H (94-97) % Hemoglobin (13.0-17.5) gm/dL Sodium (137-145) mmol/L Chloride (98-107) mmol/L Carbon Dioxide (22-30) mmol/L BUN (9-20) mg/dL Glucose (74-99) mg/dL POC Glucose (mg/dL) 122 H (70-110) mg/dL 12/22/24 12/22/24 Range/Units 04:53 10:42 RBC (4.30-5.90) m/uL Hgb (13.0-17.5) gm/dL Lymphocytes # (1.0-4.8) k/uL ABG pH 7.50 H (7.35-7.45) ABG HCO3 35 H (21-25) mmol/L ABG Total CO2 37 H (19-24) mmol/L ABG O2 Saturation 98.6 H (94-97) % Hemoglobin 12.7 L (13.0-17.5) gm/dL Sodium 136 L (137-145) mmol/L Chloride 96 L (98-107) mmol/L Carbon Dioxide 34 H (22-30) mmol/L BUN 21 H (9-20) mg/dL Glucose 114 H (74-99) mg/dL POC Glucose (mg/dL) (70-110) mg/dL Assessment and Plan (1) UTI (urinary tract infection) Current Visit: Yes Status: Acute Code(s): N39.0 - URINARY TRACT INFECTION, SITE NOT SPECIFIED SNOMED Code(s): 27099295 Plan: 1patient presented to hospital with increasing shortness of breath which is more likely underlying cardiac etiology as patient noticed to be in A-fib with RVR subsequent getting to bradycardia arrhythmia for the patient being transferred to ICU as per discussion with admitting physician 2-patient also have a significantly positive UA some mental status changes history of prostate disorder with prostatomegaly seen on CT component of UTI not entirely excluded likely due to gram-negative pathogen 3-patient is afebrile and his white count is normal, will continue with Rocephin and monitor clinical course closely Dictation was produced using [employer] dictation software. please excuse any grammatical, word or spelling errors. Time with Patient: Less than 30
[2024-12-22] MEDS ORDERED: BENZOCAINE/MENTHOL LOZENG 1 EACH LOZENGE MUCOUS MEM PRN (17:58)
[2024-12-22 18:53] LABS: Glucose,Whole Blood 81 mg/dL (70-110)
[2024-12-22] MEDS: AMIODARONE 360 MG in DEXTROSE 5% IN WATER 200 ML IV ONE (18:55)
[2024-12-22 22:52] LABS: Magnesium 2.1 mg/dL (1.6-2.3); Potassium 3.6 mmol/L (3.5-5.1)
[2024-12-23] MEDS: POTASSIUM CHLORIDE 10 MEQ in WATER FOR INJECTION 1 100ML.BAG IVPB SCH ×3 (00:08→17:45)
[2024-12-23] MEDS: AMIODARONE 450 MG in DEXTROSE 5% IN WATER 250 ML IV SCH (00:39)
[2024-12-23 01:12] LABS: Glucose,Whole Blood 101 mg/dL (70-110)
[2024-12-23 05:46] LABS: HCT 36.9 % (39.0-53.0); HGB 11.7 gm/dL (13.0-17.5); Hypochromasia Slight; MCH 30.3 pg (25.0-35.0); MCHC 31.7 g/dL (31.0-37.0); MCV 95.5 fL (80.0-100.0); Mean Platelet Volume 7.4; Platelet Count 274 k/uL (150-450); RBC 3.86 m/uL (4.30-5.90); RDW 13.8 % (11.5-15.5); WBC 12.6 k/uL (3.8-10.6)
[2024-12-23 06:03] LABS: ALT 23 U/L (4-49); AST 23 U/L (17-59); African American GFR (CKD) >90 (>60 ml/min/1.73 sqM); Alkaline Phosphatase 78 U/L (38-126); Anion Gap 5 mmol/L; Blood Urea Nitrogen 19 mg/dL (9-20); Calcium 8.7 mg/dL (8.4-10.2); Carbon Dioxide 36 mmol/L (22-30); Chloride 96 mmol/L (98-107); Glucose 97 mg/dL (74-99); Non-African American GFR(CKD) >90 (>60 ml/min/1.73 sqM); Potassium 3.8 mmol/L (3.5-5.1); Sodium 137 mmol/L (137-145); Total Bilirubin 0.9 mg/dL (0.2-1.3); Total Protein 6.3 g/dL (6.3-8.2)
[2024-12-23 06:07] LABS: Glucose,Whole Blood 106 mg/dL (70-110)
--- NOTE | 2024-12-23 07:37 | XR ---
EXAMINATION TYPE: XR chest 1V portable DATE OF EXAM: 12/23/2024 5:39 AM COMPARISON: There are 1925 CLINICAL INDICATION: Male, 74 years old with history of post extubation, ICU management, FINDINGS: Endotracheal and NG tubes have been removed. Central venous line remains in place. No pneumothorax pr esent. No change in bibasilar opacities. Stable appearance of the cardio-mediastinal structures at this time. Pleural effusion unchanged. IMPRESSION: 1. Stable portable chest. Clinical correlation and follow up until resolution is recommended. [facility], , 12/23/2024 7:34 AM
[2024-12-23] MEDS: FUROSEMIDE 10 MG/ML 4 ML VIAL IV SCH (08:38)
[2024-12-23] MEDS: DIGOXIN 125 MCG TAB PO SCH (10:54)
[2024-12-23] MEDS: METOPROLOL TARTRATE 50 MG TAB PO SCH (10:54)
--- NOTE | 2024-12-23 11:36 | P.PN ---
Subjective Progress Note Date: 12/23/24 Principal diagnosis: Acute hypoxic respiratory failure secondary to cardiogenic shock requiring intubation mechanical ventilation. 74-year-old male patient, known history of severe cardiomyopathy with an ejection fraction of 20%, nonischemic cardiomyopathy, known history of chronic atrial fibrillation, mitral regurgitation, hypertension hyperlipidemia and history of alcoholism. Cardiac catheterization done during recent hospitalization showed normal coronaries. Patient presented to the emergency department with worsening shortness of breath. No reported chest pain. No leg edema. In the emergency, the patient was found to be in A-fib RVR, started on IV heparin and Cardizem drip for rate control. Subsequently, the patient started having episodes of bradycardia. Cardizem drip was discontinued. The patient was having significant bradycardia with hypotension and his heart rate was in the low 30s, A-fib rhythm. Elevated echocardiogram was done and it showed further impairment of the LV function with an EF of around 5 to 10%. There was global reduction of the LV systolic function. Cardiology was involved and the patient was taken to the [employer] and the patient was given a TVP set at the rate of 80. Following that, the patient got moved to the intensive care unit. Upon arrival, the patient was provided lethargic, short of breath, hypotensive. He was already on dopamine which is running at 5 mcg/kg/min. Blood gas showed a pH of 7.23 with a pCO2 of 43.8 and P02 234 and this was done on 100 % NRB. Based on the overall condition, the patient was intubated placed on ventilator. He is on propofol at 35 mcg/kg/min. UO is 100 cc/hr. He is on mechanical ventilator and he is on AC at a rate of 18 , TV 450, FI02 60 and PEEP of 10. Blood work showed a white cell count of 8.3, hemoglobin of 13.3 and a platelet count of 282. The patient has a sodium level of 135 potassium is at 5.4, bicarb is at 16, BUN is 20 with a creatinine of 1.1. proBNP level is more than 10,000. TSH is 4.4. LFTs are normal. UA is positive for white cells and leukocyte esterase with many bacteria. Patient was started on IV Rocephin. Postintubation chest x-ray shows evidence of pulmonary edema and bilateral pleural effusion.. Tube is in good location. There is evidence of pulm vascular congestion and moderate-sized bilateral pleural effusions. A triple- lumen catheter and arterial line was established. On 12/17/2024, the patient is being seen for a follow-up. The patient remains intubated on mechanical ventilator. This morning, the patient had a propofol running at 50 mcg/kg/min. The patient is calm and comfortable and successful mechanical ventilator. His assist-control mode at rate of 18, tidal volume of 450, FiO2 of 40% and PEEP of 10. The blood gas from today shows a pH of 7.42 with a pCO2 of 30 and pO2 of 242. Chest x-rayIs showing pulmonary vascular congestion/edema consistent with CHF. The patient has a TVP placed and the TVP is currently at a backup rate of 60. Meanwhile, the patient heart rate is improved and currently his heart rate is in the low 90s 100 range, still in atrial fibrillation the patient currently is on dobutamine 5 mcg/kg/min. Urine output is adequate. Afebrile. No pressors for now. White cell count is at 8 with a hemoglobin 12.2 and a platelet count of 239. Sodium is at 131, potassium is at 4.3, bicarb is at 19, BUN is 27 with a creatinine of 1.7 and the patient has sustained acute kidney injury. LFTs are mildly elevated including a mild elevation of the AST and ALT. Urine drug screen is positive for cocaine. The patient remains on IV Rocephin on an empiric basis pending further cultures. 12/18/2024, the patient is being seen for a follow-up. Remains intubated on mechanical ventilator, currently on propofol running at 50 mcg/kg/min,, comfortable and synchronous with the mechanical ventilator which is set at a rate of 18, tidal volume of 450, FiO2 40% with a PEEP of 5. Blood gas showed pH of 7.49 with a pCO2 of 28 and pO2 of 159. He remains in atrial fibrillation, rate is controlled and the patient remains on dobutamine at 5 mcg/kg/min. TVP backup is at 50. He is on vital HP at rate of 20 cc an hour. Chest x-ray is consistent with CHF with pulm vascular congestion and edema. The white cell count is 6.1, hemoglobin 12.3, platelet count of 225, sodium is at 137, BUN is 18 with a creatinine of 1 and a serum bicarb of 21. No fever. No other significant events overnight. 12/19/2024, the patient remains sedated on the mechanical ventilator. Sedation holiday was given and the patient was quite restless and agitated and was not following commands. This was reported yesterday and another sedation holiday will be done today. The patient remains on propofol running at 35 mcg/kg/min. The patient is on dobutamine at 5 mcg/kg/min. Remains on assist-control mode mechanical ventilation at rate of 12, tidal volume of 500, FiO2 35% with a PEEP of 5. Blood gas showed pH of 7.45 with a pCO2 of 38 and pO2 of 126. Fluid balance is +1.3 L over the past 24 hours. The patient was started on IV Lasix. The patient is also on metoprolol. The patient remains in atrial fibrillation. Metoprolol is being given at a dose of 50 mg p.o. and the dose has been modified to 3 times daily. Remains on anticoagulation with Eliquis. Remains on broad- spectrum antibiotics with IV Rocephin. Chest x-ray still consistent with pulmonary edema. He is afebrile. Patient was seen today on 12/20/2024, remains in the ICU, intubated and mechanically ventilated. Patient is on assist-control rate of 12 tidal volume 450 FiO2 35% and PEEP of 5. ABG showed a pO2 of 108 pCO2 42 pH of 7.51. Hence no changes were made in vent settings. Drips garcia, patient remains on dobutamine at 2.5 mg/kg/min Cleviprex at 1 mg/h, Precedex at 0.6 mcg/kg/h, propofol at 15 mcg/kg/min. Patient is on Lasix 40 mg IV push twice daily remains on Rocephin, and he remains on Eliquis. Nutrition garcia patient is receiving vital HP at 40 cc/h, however it is presently on hold because of high residual of over 800 cc. Patient has not been able to wean mostly because of the extreme agitation when he is off the propofol Lozano presently on Precedex and propofol. And the plan is to continue maximal dose of Precedex, and continue to try daily trials of weaning. Will try this again today, however remind you patient has a very low ejection fraction of 5 to 10%, patient has what seems to be a picture of nonischemic cardiomyopathy and LV dysfunction. Chest x-ray today showed mostly no major change, pleural effusions remain unchanged, patient has bibasilar opacities consistent with congestive heart failure. Underlying pneumonia is not entirely ruled out. WBC count is normal, no evidence of leukocytosis, his electrolytes are normal, bicarb is elevated at 34, BUN is 12 creatinine 0.7. Patient was seen today on 12/21/2024, patient remains in the ICU, intubated and mechanically ventilated, on assist-control rate of 12 tidal volume 450 FiO2 35% and PEEP of 5 ABG showed a pO2 of 110 pCO2 4 0 pH of 7.51 hence FiO2 was cut down to 30%. Patient remains on multiple drips including propofol at 30 mg/kg/m in dobutamine at 2.5 mg/kg/min amiodarone 1 mg/min he is also on vital HP at 20 cc/h Eliquis Lasix 40 mg IV push every 12 hours and he is on Rocephin empirically. Chest x-ray is showing improvement in his pulmonary edema. Clinically however the patient is about the same. Yesterday attempts were made to wean the patient from propofol and he became extremely agitated. Today he seems to be calm, however we will try again propofol and possibly use Precedex if necessary. WBC count is 9.1 hemoglobin 13.0 electrolytes are normal, renal profile is normal. Patient was seen today on 12/22/2024, patient remains in the ICU, intubated and mechanically ventilated. He is on assist-control rate of 12 tidal volume 450 FiO2 30% PEEP of 5 ABG showed a pO2 of 100 pCO2 43 pH of 7.51. Patient remains on dobutamine at 2.5 mcg/kg/min, continues to have decent urine output with dobutamine and on Lasix. Patient remains on Rocephin empirically, and remind you patient has a very low ejection fraction of 5 to 10%. His chest x-ray today showed evidence of pulmonary edema, he did receive Lasix earlier today, and he was responding to Lasix. The overall clinical picture is still critical in the situation, however considering the patient is off all narcotics, off sedatives, off Precedex, I will keep him on dobutamine, and I will give the patient a trial of weaning using pressure support of 10 and CPAP. If tolerated, and if his ABG is noted to be reasonable, then may consider weaning and extubating this patient. Chest x-ray was reviewed is consistent with pulmonary edema WBC count is 9.4 hemoglobin 12.7, electrolytes and basic metabolic profile are normal. Patient was seen today on 12/23/2024, patient remains in the ICU, he was extubated yesterday, remains on 2 L nasal cannula, remains on dobutamine 2.5 mg/kg/min remains on amiodarone at 0.5 mg/min, IV fluids at KVO remains on Lasix 40 mg IV push every 12 hours, however I increased the dose to 40 mg IV push Q8. Chest x-ray continues to show pulmonary edema, and just not surprising considering the patient's echocardiogram shows severe LV dysfunction. WBC count today is 12.6 hemoglobin 11.7 electrolytes are normal renal profile is normal, did not see a note from cardiology and this patient yesterday and today, the last note was from 12/21 which stated clearly that the patient has poor prognosis, likelihood of recovery from LV dysfunction is very poor, and basically recommended DNR CODE STATUS. The CODE STATUS was changed to DNR already. Objective - Vital Signs Vital signs: Vital Signs Temp 99.1 F 12/23/24 08:00 Pulse 114 H 12/23/24 10:00 Resp 19 12/23/24 10:00 BP 116/86 12/23/24 06:00 Pulse Ox 97 12/23/24 10:00 FiO2 30 12/22/24 09:58 Intake & Output 12/22/24 12/23/24 12/23/24 18:59 06:59 18:59 Intake Total 367.175 811.458 295.881 Output Total 830 850 385 Balance -462.825 -38.542 -89.119 Weight 69.5 kg Intake: IV 276 299 119 0.9 Normal Saline @ KVO 240 260 60 0.9 Pressure bag 36 39 9 cefTRIAXone 2 gm In 50 Sodium Chloride 0.9% 50 ml @ 100 mls/hr IVPB Q24HR [facility] Rx#:[id number] Intake, IV Titration 11.175 512.458 176.881 Amount Amiodarone 450 mg In 176.881 Dextrose 5% in Water 250 ml @ 0.5 MG/MIN 16.667 mls/hr IV .Q15H [facility] Rx#: [id number] DOBUTamine DRIP 500 mg In 212.458 Dextrose/Water 1 250ml. bag @ Titrate IV .[id number] [facility] Rx#:[id number] Dexmedetomidine/0.9% NaCl 11.175 (Pmx) 400 mcg In Empty Bag 1 bag @ 0.2 MCG/KG/HR 3.585 mls/hr IV .Q24H [facility] Rx#:[id number] Potassium Chloride 10 meq 200 In Water For Injection 1 100ml.bag @ 100 mls/hr IVPB Q1H [facility] Rx#: [id number] Potassium Chloride 10 meq 100 In Water For Injection 1 100ml.bag @ 100 mls/hr IVPB Q1H [facility] Rx#: [id number] Oral 0 Tube Feeding 50 Other 30 Output: Urine 830 850 385 Other: Voiding Method Indwelling Catheter Indwelling Catheter # Voids 1 ABP, PAP, CO, CI - Last Documented Arterial Blood Pressure 118/54 - Exam GENERAL: revealed a 74-year-old white male on 2 L nasal cannula in no distress HEENT: Pupils are round and equally reacting to light. EOMI. No scleral icterus. No conjunctival pallor. Normocephalic, atraumatic. No pharyngeal erythema. No thyromegaly. CARDIOVASCULAR: Distant S1-S2, no S3 gallop, no murmur. PULMONARY: Symmetrical chest expansion, continues to have minimal crackles at the bases ABDOMEN: Soft, nontender, nondistended, normoactive bowel sounds. No palpable organomegaly. MUSCULOSKELETAL: No deformities and no limitation range of motion EXTREMITIES: No clubbing, trace of edema, no cyanosis. NEUROLOGICAL: Alert and oriented x 3 no gross focal neurologic deficit SKIN: No rashes. Psychiatric: Normal mood affect and no mental status examination. - Labs CBC & Chem 7: 12/23/24 05:10 12/23/24 05:10 Labs: Abnormal Lab Results - Last 24 Hours (Table) 12/23/24 12/23/24 Range/Units 05:10 05:10 WBC 12.6 H (3.8-10.6) k/uL RBC 3.86 L (4.30-5.90) m/uL Hgb 11.7 L (13.0-17.5) gm/dL Hct 36.9 L (39.0-53.0) % Chloride 96 L (98-107) mmol/L Carbon Dioxide 36 H (22-30) mmol/L Albumin 3.0 L (3.5-5.0) g/dL Assessment and Plan Assessment: Impression: Acute hypoxic respiratory failure secondary to cardiogenic shock and severe LV dysfunction, nonischemic in nature. Patient was extubated on 12/22/2024 Acute on chronic systolic congestive heart failure Nonischemic cardiomyopathy with normal cardiac catheterization but severe LV dysfunction ejection fraction of 5 to 10% Chronic atrial fibrillation, rate controlled. Moderate mitral regurgitation History of substance abuse/cocaine History of alcoholism, could be the leading cause of his cardiomyopathy and LV dysfunction Benign essential hypertension Acute urinary tract infection Dyslipidemia Benign prostatic hyperplasia Recommendation: Continue to monitor in the ICU Continue dobutamine at 2.5 mg/kg/min Continue Lasix 40 mg IV push every 8 hours Continue Eliquis Continue empiric antibiotics/Rocephin Continue thiamine and CIWA protocol Continue IV fluid at KVO Will continue to follow, cannot transfer out of the ICU as long as he is on dobutamine, will likely discontinue dobutamine in the next 24 hours. Time with Patient: Less than 30
[2024-12-23 12:29] LABS: Glucose,Whole Blood 113 mg/dL (70-110)
--- NOTE | 2024-12-23 13:21 | P.PN ---
Subjective Progress Note Date: 12/23/24 patient is a 74-year-old gentleman past medical history significant for hypertension, hyperlipidemia, systolic CHF, paroxysmal A-fib, who presents the ER because of chest pain and shortness of breath. Patient was admitted in the hospital in November at which time patient was found to have cardiomyopathy and had cardiac cath done which showed normal coronaries. Patient was discharged to rehab facility from where he was discharged home a couple of days back. Patient stated ever since discharge he has been having chest pain in the central location, pressure-like, nonradiating, no aggravating or relieving factor associated with this chest pain. patient also complains of shortness of breath Present on exertion. Patient denies any fever or chills. There is no complaint of orthopnea or PND. Denies any swelling of feet. Because of this shortness of breath, patient came to the ER Initial lab work done in the ER showed WBC 8.2, hemoglobin 13.3, platelet count 282, sodium 139, potassium 5.4, BUN 20, creatinine 1.19, calcium 9.7, bilirubin 1.4, AST 23, ALT 21, troponin 0.012 Urine done showed large amount of leukocyte Estrace, urine WBC 182 EKG done in the ER showed heart rate of 159, irregular in rate and rhythm, no ST segment elevation or depression seen, no T-wave inversions seen. Chest x-ray done in the ER showed cardiomegaly, pulm vascular congestion and bilateral pleural effusion Patient admitted to internal medicine service 12/17. Patient seen and examined. Patient had a rapid response called yesterday afternoon for bradycardia at which time patient AV node blocking agents were discontinued. Patient continued to be bradycardic, cardiology took patient for cardiac catheter for temporary pacemaker insertion. Patient was transferred to ICU where patient was later on intubated because of respiratory distress 12/19/2024 --the patient is seen and evaluated in room at bedside; remains in ICU, sedated on the mechanical ventilator. The patient remains on propofol running at 35 mcg/kg/min. The patient is on dobutamine at 5 mcg/kg/min. Remains on assist-control mode mechanical ventilation. Blood gas showed pH of 7.45 with a pCO2 of 38 and pO2 of 126. Fluid balance is +1.3 L over the past 24 hours. The patient was started on IV Lasix. The patient is also on metoprolol. The patient remains in atrial fibrillation. Metoprolol is being given at a dose of 50 mg p.o. and the dose has been modified to 3 times daily. Remains on anticoagulation with Eliquis. Remains on broad- spectrum antibiotics with IV Rocephin. Chest x-ray still consistent with pulmonary edema. He is afebrile. -patient also have a significantly positive UA some mental status changes history of prostate disorder with prostatomegaly seen on CT component of UTI not entirely excluded likely due to gram-negative pathogen -patient is afebrile and his white count is normal, repeat UA and showed improvement compared to admission UA continue with Rocephin 12/20 Patient is awake and does not follow commands while he is intubated He is on restraints He is currently getting pelvic breaks and dobutamine drips Yesterday propofol was tried to wean him down he got agitated will during sedation holiday trying to attack staff. 12/21. Patient seen and examined. Blood work done today showed WBC 9.1, hemoglobin 13, platelet count 199 sodium 130, potassium 4.5, BUN 18, creatinine 0.94. Patient was given sedation holiday today. Family at the bedside, they were updated 12/22. Patient seen and examined.Blood work this morning showed WBC 9.4, hemoglobin 0.7, platelet count 265, sodium 137 potassium 3.5, BUN 21, creatinine 0.77. Patient was extubated this morning, brother at the bedside. Patient at this time is stating that she does not want any more medications. Discussed with brother, hospice will be consulted 12/23. Patient seen and examined.Blood work done this morning showed WBC 12.6, hemoglobin 9.7, sodium 137, potassium 3.8, BUN 19, creatinine 0.77 currently on 2 L of oxygen. Continues to be on dobutamine REVIEW OF SYSTEMS: Denies chest pain. Denies shortness of breath PHYSICAL EXAMINATION: GENERAL: The patient is alert HEENT: Pupils are round and equally reacting to light. EOMI. No scleral icterus. No conjunctival pallor. Normocephalic, atraumatic. No pharyngeal erythema. No thyromegaly. CARDIOVASCULAR: S1 and S2 present. No murmurs, rubs, or gallops. PULMONARY: Diminished breath sounds at bases, crackles audible bilateral ABDOMEN: Soft, nontender, nondistended, normoactive bowel sounds. No palpable organomegaly. MUSCULOSKELETAL: No joint swelling or deformity. EXTREMITIES: No cyanosis, clubbing, or pedal edema. NEUROLOGICAL: Gross neurological examination did not reveal any focal deficits. SKIN: No rashes. Assessment and plan Cardiogenic shock Bradycardia Acute hypoxic respiratory failure Acute on chronic systolic CHF, new echo done shows EF of 5 to 10% A-fib with RVR UTI Hyperkalemia History of hyperlipidemia History of hypertension History of chronic systolic CHF with EF of 20-25%, repeat echo shows EF of 5 to 10% Anxiety Depression Monitor vital signs Monitor CBC Monitor CMP Continue telemetry monitoring Aggressive bronchopulmonary hygiene Continue amiodarone drip Continue dobutamine Continue IV Rocephin Strict I's and O's, daily weights, continue IV Lasix 40 3 times daily Cardiology following ICU following ID following Patient has very poor prognosis, patient family updated about it. Hospice consulted Labs and medication were reviewed.. Continue same treatment. Continue with symptomatic treatment. Resume home medication. Monitor labs and vitals. DVT and GI prophylaxis. Further recommendations as per clinical course of the patient Dictation was produced using [employer] dictation software. please excuse any grammatical, word or spelling errors. Objective - Vital Signs Vital signs: Vital Signs Temp 99.1 F 12/23/24 08:00 Pulse 114 H 12/23/24 08:00 Resp 18 12/23/24 08:00 BP 116/86 12/23/24 06:00 Pulse Ox 99 12/23/24 09:03 FiO2 30 12/22/24 09:58 Intake & Output 12/22/24 12/23/24 12/23/24 18:59 06:59 18:59 Intake Total 367.175 811.458 89.6 Output Total 830 850 35 Balance -462.825 -38.542 54.6 Weight 69.5 kg Intake: IV 276 299 73 0.9 Normal Saline @ KVO 240 260 20 0.9 Pressure bag 36 39 3 cefTRIAXone 2 gm In 50 Sodium Chloride 0.9% 50 ml @ 100 mls/hr IVPB Q24HR [facility] Rx#:[id number] Intake, IV Titration 11.175 512.458 16.6 Amount Amiodarone 450 mg In 16.6 Dextrose 5% in Water 250 ml @ 0.5 MG/MIN 16.667 mls/hr IV .Q15H [facility] Rx#: [id number] DOBUTamine DRIP 500 mg In 212.458 Dextrose/Water 1 250ml. bag @ Titrate IV .[id number] [facility] Rx#:[id number] Dexmedetomidine/0.9% NaCl 11.175 (Pmx) 400 mcg In Empty Bag 1 bag @ 0.2 MCG/KG/HR 3.585 mls/hr IV .Q24H [facility] Rx#:[id number] Potassium Chloride 10 meq 200 In Water For Injection 1 100ml.bag @ 100 mls/hr IVPB Q1H [facility] Rx#: [id number] Potassium Chloride 10 meq 100 In Water For Injection 1 100ml.bag @ 100 mls/hr IVPB Q1H [facility] Rx#: [id number] Oral 0 Tube Feeding 50 Other 30 Output: Urine 830 850 35 Other: Voiding Method Indwelling Catheter Indwelling Catheter # Voids 1 ABP, PAP, CO, CI - Last Documented Arterial Blood Pressure 123/65 - Labs CBC & Chem 7: 12/23/24 05:10 12/23/24 05:10 Labs: Abnormal Lab Results - Last 24 Hours (Table) 12/22/24 12/23/24 12/23/24 Range/Units 10:42 05:10 05:10 WBC 12.6 H (3.8-10.6) k/uL RBC 3.86 L (4.30-5.90) m/uL Hgb 11.7 L (13.0-17.5) gm/dL Hct 36.9 L (39.0-53.0) % ABG pH 7.50 H (7.35-7.45) ABG HCO3 35 H (21-25) mmol/L ABG Total CO2 37 H (19-24) mmol/L ABG O2 Saturation 98.6 H (94-97) % Hemoglobin 12.7 L (13.0-17.5) gm/dL Chloride 96 L (98-107) mmol/L Carbon Dioxide 36 H (22-30) mmol/L Albumin 3.0 L (3.5-5.0) g/dL
--- NOTE | 2024-12-23 15:04 | P.PN ---
Subjective Progress Note Date: 12/23/24 Principal diagnosis: Reason for follow-up is a UTI Patient is a 74-year-old male with a past medical history significant for COPD hypertension prostate disorder anxiety depression history of heavy alcohol abuse presenting to the hospital for evaluation of chest pain and shortness of breath, patient did have significant breath arrhythmia requiring transvenous pacer intubation admission to ICU also have a positive UA concerning for UTI prompting this consultation. On today's evaluation that is 12/23/2024,the patient remains to be afebrile, patient is on room air not requiring supplemental oxygen and denies any shortness of breath no chest pain or cough.Patient denies having any nausea or vomiting, no abdominal pain and no diarrhea has been reported. Patient white count is 12.6, creatinine 0.77 Objective - Vital Signs Vital signs: Vital Signs Temp 98.2 F 12/23/24 12:00 Pulse 90 12/23/24 14:00 Resp 22 12/23/24 14:00 BP 116/86 12/23/24 06:00 Pulse Ox 94 L 12/23/24 14:00 FiO2 30 12/22/24 09:58 Intake & Output 12/22/24 12/23/24 12/23/24 18:59 06:59 18:59 Intake Total 367.175 811.458 487.881 Output Total 830 850 630 Balance -462.825 -38.542 -142.119 Weight 69.5 kg Intake: IV 276 299 211 0.9 Normal Saline @ KVO 240 260 140 0.9 Pressure bag 36 39 21 cefTRIAXone 2 gm In 50 Sodium Chloride 0.9% 50 ml @ 100 mls/hr IVPB Q24HR [facility] Rx#:[id number] Intake, IV Titration 11.175 512.458 176.881 Amount Amiodarone 450 mg In 176.881 Dextrose 5% in Water 250 ml @ 0.5 MG/MIN 16.667 mls/hr IV .Q15H [facility] Rx#: [id number] DOBUTamine DRIP 500 mg In 212.458 Dextrose/Water 1 250ml. bag @ Titrate IV .[id number] [facility] Rx#:[id number] Dexmedetomidine/0.9% NaCl 11.175 (Pmx) 400 mcg In Empty Bag 1 bag @ 0.2 MCG/KG/HR 3.585 mls/hr IV .Q24H [facility] Rx#:[id number] Potassium Chloride 10 meq 200 In Water For Injection 1 100ml.bag @ 100 mls/hr IVPB Q1H [facility] Rx#: [id number] Potassium Chloride 10 meq 100 In Water For Injection 1 100ml.bag @ 100 mls/hr IVPB Q1H [facility] Rx#: [id number] Oral 0 100 Tube Feeding 50 Other 30 Output: Urine 830 850 630 Other: Voiding Method Indwelling Catheter Indwelling Catheter Indwelling Catheter # Voids 1 # Bowel Movements 1 ABP, PAP, CO, CI - Last Documented Arterial Blood Pressure 130/72 - Exam GENERAL DESCRIPTION: An elderly male lying in bed in no distress RESPIRATORY SYSTEM: Unlabored breathing , decreased breath sounds at bases HEART: S1 S2 regular rate and rhythm , ABDOMEN: Soft , no tenderness EXTREMITIES: No edema feet - Labs CBC & Chem 7: 12/23/24 05:10 12/23/24 05:10 Labs: Abnormal Lab Results - Last 24 Hours (Table) 12/23/24 12/23/24 12/23/24 Range/Units 05:10 05:10 12:26 WBC 12.6 H (3.8-10.6) k/uL RBC 3.86 L (4.30-5.90) m/uL Hgb 11.7 L (13.0-17.5) gm/dL Hct 36.9 L (39.0-53.0) % Chloride 96 L (98-107) mmol/L Carbon Dioxide 36 H (22-30) mmol/L POC Glucose (mg/dL) 113 H (70-110) mg/dL Albumin 3.0 L (3.5-5.0) g/dL Assessment and Plan (1) UTI (urinary tract infection) Current Visit: Yes Status: Acute Code(s): N39.0 - URINARY TRACT INFECTION, SITE NOT SPECIFIED SNOMED Code(s): 08934101 (2) Leukocytosis Current Visit: Yes Status: Acute Code(s): D72.829 - ELEVATED WHITE BLOOD CELL COUNT, UNSPECIFIED SNOMED Code(s): 586956648 Plan: 1patient presented to hospital with increasing shortness of breath which is more likely underlying cardiac etiology as patient noticed to be in A-fib with RVR subsequent getting to bradycardia arrhythmia for the patient being transferred to ICU as per discussion with admitting physician 2-patient also have a significantly positive UA some mental status changes history of prostate disorder with prostatomegaly seen on CT component of UTI not entirely excluded likely due to gram-negative pathogen 3-patient is afebrile however the white count is slightly up today we will monitor closely for now continue with Rocephin Dictation was produced using [employer] dictation software. please excuse any grammatical, word or spelling errors. Time with Patient: Less than 30
[2024-12-23] MEDS ORDERED: LORazepam 2 MG/ML INJ IV PRN (17:21)
[2024-12-23] MEDS ORDERED: LORazepam 1 MG/0.5 ML VIAL IV PRN (18:13)
[2024-12-24 05:42] LABS: HCT 37.6 % (39.0-53.0); HGB 12.3 gm/dL (13.0-17.5); Hypochromasia Slight; MCH 31.1 pg (25.0-35.0); MCHC 32.6 g/dL (31.0-37.0); MCV 95.3 fL (80.0-100.0); Mean Platelet Volume 7.8; Platelet Count 299 k/uL (150-450); RBC 3.94 m/uL (4.30-5.90); RDW 13.8 % (11.5-15.5); WBC 8.1 k/uL (3.8-10.6)
[2024-12-24 05:51] LABS: African American GFR (CKD) >90 (>60 ml/min/1.73 sqM); Anion Gap 3 mmol/L; Blood Urea Nitrogen 20 mg/dL (9-20); Carbon Dioxide 35 mmol/L (22-30); Chloride 97 mmol/L (98-107); Glucose 86 mg/dL (74-99); Non-African American GFR(CKD) 85 (>60 ml/min/1.73 sqM); Potassium 3.5 mmol/L (3.5-5.1); Sodium 135 mmol/L (137-145)
[2024-12-24] MEDS: POTASSIUM CHLORIDE ER 20 MEQ TAB.ER PO SCH ×2 (06:15→10:53)
--- NOTE | 2024-12-24 07:01 | XR ---
EXAM: XR Chest, 1 View CLINICAL HISTORY: ITS.REASON XR Reason: post extubation, ICU TECHNIQUE: Frontal view of the chest. COMPARISON: X-ray dated 12/23/2024. FINDINGS: Lungs: Improving opacification of the bilateral mid to lower lungs. Pleural space: Bilateral pleural effusions. No pneumothorax. Heart: Moderate enlargement of the cardiac silhouette. Mediastinum: Unremarkable. Normal mediastinal contour. Bones/joints: Degenerative changes are seen in the spine and shoulders. No acute fracture. Tubes, lines and devices: Left-sided central venous catheter is in place with the tip overlying the affected location of the caval atrial junction. IMPRESSION: Improving bilateral pleural effusions with adjacent atelectasis and/or pneumonia not excluded.
--- NOTE | 2024-12-24 12:48 | P.PN ---
Subjective Progress Note Date: 12/24/24 Principal diagnosis: Acute hypoxic respiratory failure secondary to cardiogenic shock requiring intubation mechanical ventilation. 74-year-old male patient, known history of severe cardiomyopathy with an ejection fraction of 20%, nonischemic cardiomyopathy, known history of chronic atrial fibrillation, mitral regurgitation, hypertension hyperlipidemia and history of alcoholism. Cardiac catheterization done during recent hospitalization showed normal coronaries. Patient presented to the emergency department with worsening shortness of breath. No reported chest pain. No leg edema. In the emergency, the patient was found to be in A-fib RVR, started on IV heparin and Cardizem drip for rate control. Subsequently, the patient started having episodes of bradycardia. Cardizem drip was discontinued. The patient was having significant bradycardia with hypotension and his heart rate was in the low 30s, A-fib rhythm. Elevated echocardiogram was done and it showed further impairment of the LV function with an EF of around 5 to 10%. There was global reduction of the LV systolic function. Cardiology was involved and the patient was taken to the [facility] and the patient was given a TVP set at the rate of 80. Following that, the patient got moved to the intensive care unit. Upon arrival, the patient was provided lethargic, short of breath, hypotensive. He was already on dopamine which is running at 5 mcg/kg/min. Blood gas showed a pH of 7.23 with a pCO2 of 43.8 and P02 234 and this was done on 100 % NRB. Based on the overall condition, the patient was intubated placed on ventilator. He is on propofol at 35 mcg/kg/min. UO is 100 cc/hr. He is on mechanical ventilator and he is on AC at a rate of 18 , TV 450, FI02 60 and PEEP of 10. Blood work showed a white cell count of 8.3, hemoglobin of 13.3 and a platelet count of 282. The patient has a sodium level of 135 potassium is at 5.4, bicarb is at 16, BUN is 20 with a creatinine of 1.1. proBNP level is more than 10,000. TSH is 4.4. LFTs are normal. UA is positive for white cells and leukocyte esterase with many bacteria. Patient was started on IV Rocephin. Postintubation chest x-ray shows evidence of pulmonary edema and bilateral pleural effusion.. Tube is in good location. There is evidence of pulm vascular congestion and moderate-sized bilateral pleural effusions. A triple- lumen catheter and arterial line was established. On 12/17/2024, the patient is being seen for a follow-up. The patient remains intubated on mechanical ventilator. This morning, the patient had a propofol running at 50 mcg/kg/min. The patient is calm and comfortable and successful mechanical ventilator. His assist-control mode at rate of 18, tidal volume of 450, FiO2 of 40% and PEEP of 10. The blood gas from today shows a pH of 7.42 with a pCO2 of 30 and pO2 of 242. Chest x-rayIs showing pulmonary vascular congestion/edema consistent with CHF. The patient has a TVP placed and the TVP is currently at a backup rate of 60. Meanwhile, the patient heart rate is improved and currently his heart rate is in the low 90s 100 range, still in atrial fibrillation the patient currently is on dobutamine 5 mcg/kg/min. Urine output is adequate. Afebrile. No pressors for now. White cell count is at 8 with a hemoglobin 12.2 and a platelet count of 239. Sodium is at 131, potassium is at 4.3, bicarb is at 19, BUN is 27 with a creatinine of 1.7 and the patient has sustained acute kidney injury. LFTs are mildly elevated including a mild elevation of the AST and ALT. Urine drug screen is positive for cocaine. The patient remains on IV Rocephin on an empiric basis pending further cultures. 12/18/2024, the patient is being seen for a follow-up. Remains intubated on mechanical ventilator, currently on propofol running at 50 mcg/kg/min,, comfortable and synchronous with the mechanical ventilator which is set at a rate of 18, tidal volume of 450, FiO2 40% with a PEEP of 5. Blood gas showed pH of 7.49 with a pCO2 of 28 and pO2 of 159. He remains in atrial fibrillation, rate is controlled and the patient remains on dobutamine at 5 mcg/kg/min. TVP backup is at 50. He is on vital HP at rate of 20 cc an hour. Chest x-ray is consistent with CHF with pulm vascular congestion and edema. The white cell count is 6.1, hemoglobin 12.3, platelet count of 225, sodium is at 137, BUN is 18 with a creatinine of 1 and a serum bicarb of 21. No fever. No other significant events overnight. 12/19/2024, the patient remains sedated on the mechanical ventilator. Sedation holiday was given and the patient was quite restless and agitated and was not following commands. This was reported yesterday and another sedation holiday will be done today. The patient remains on propofol running at 35 mcg/kg/min. The patient is on dobutamine at 5 mcg/kg/min. Remains on assist-control mode mechanical ventilation at rate of 12, tidal volume of 500, FiO2 35% with a PEEP of 5. Blood gas showed pH of 7.45 with a pCO2 of 38 and pO2 of 126. Fluid balance is +1.3 L over the past 24 hours. The patient was started on IV Lasix. The patient is also on metoprolol. The patient remains in atrial fibrillation. Metoprolol is being given at a dose of 50 mg p.o. and the dose has been modified to 3 times daily. Remains on anticoagulation with Eliquis. Remains on broad- spectrum antibiotics with IV Rocephin. Chest x-ray still consistent with pulmonary edema. He is afebrile. Patient was seen today on 12/20/2024, remains in the ICU, intubated and mechanically ventilated. Patient is on assist-control rate of 12 tidal volume 450 FiO2 35% and PEEP of 5. ABG showed a pO2 of 108 pCO2 42 pH of 7.51. Hence no changes were made in vent settings. Drips garcia, patient remains on dobutamine at 2.5 mg/kg/min Cleviprex at 1 mg/h, Precedex at 0.6 mcg/kg/h, propofol at 15 mcg/kg/min. Patient is on Lasix 40 mg IV push twice daily remains on Rocephin, and he remains on Eliquis. Nutrition garcia patient is receiving vital HP at 40 cc/h, however it is presently on hold because of high residual of over 800 cc. Patient has not been able to wean mostly because of the extreme agitation when he is off the propofol Lozano presently on Precedex and propofol. And the plan is to continue maximal dose of Precedex, and continue to try daily trials of weaning. Will try this again today, however remind you patient has a very low ejection fraction of 5 to 10%, patient has what seems to be a picture of nonischemic cardiomyopathy and LV dysfunction. Chest x-ray today showed mostly no major change, pleural effusions remain unchanged, patient has bibasilar opacities consistent with congestive heart failure. Underlying pneumonia is not entirely ruled out. WBC count is normal, no evidence of leukocytosis, his electrolytes are normal, bicarb is elevated at 34, BUN is 12 creatinine 0.7. Patient was seen today on 12/21/2024, patient remains in the ICU, intubated and mechanically ventilated, on assist-control rate of 12 tidal volume 450 FiO2 35% and PEEP of 5 ABG showed a pO2 of 110 pCO2 4 0 pH of 7.51 hence FiO2 was cut down to 30%. Patient remains on multiple drips including propofol at 30 mg/kg/m in dobutamine at 2.5 mg/kg/min amiodarone 1 mg/min he is also on vital HP at 20 cc/h Eliquis Lasix 40 mg IV push every 12 hours and he is on Rocephin empirically. Chest x-ray is showing improvement in his pulmonary edema. Clinically however the patient is about the same. Yesterday attempts were made to wean the patient from propofol and he became extremely agitated. Today he seems to be calm, however we will try again propofol and possibly use Precedex if necessary. WBC count is 9.1 hemoglobin 13.0 electrolytes are normal, renal profile is normal. Patient was seen today on 12/22/2024, patient remains in the ICU, intubated and mechanically ventilated. He is on assist-control rate of 12 tidal volume 450 FiO2 30% PEEP of 5 ABG showed a pO2 of 100 pCO2 43 pH of 7.51. Patient remains on dobutamine at 2.5 mcg/kg/min, continues to have decent urine output with dobutamine and on Lasix. Patient remains on Rocephin empirically, and remind you patient has a very low ejection fraction of 5 to 10%. His chest x-ray today showed evidence of pulmonary edema, he did receive Lasix earlier today, and he was responding to Lasix. The overall clinical picture is still critical in the situation, however considering the patient is off all narcotics, off sedatives, off Precedex, I will keep him on dobutamine, and I will give the patient a trial of weaning using pressure support of 10 and CPAP. If tolerated, and if his ABG is noted to be reasonable, then may consider weaning and extubating this patient. Chest x-ray was reviewed is consistent with pulmonary edema WBC count is 9.4 hemoglobin 12.7, electrolytes and basic metabolic profile are normal. Patient was seen today on 12/23/2024, patient remains in the ICU, he was extubated yesterday, remains on 2 L nasal cannula, remains on dobutamine 2.5 mg/kg/min remains on amiodarone at 0.5 mg/min, IV fluids at KVO remains on Lasix 40 mg IV push every 12 hours, however I increased the dose to 40 mg IV push Q8. Chest x-ray continues to show pulmonary edema, and just not surprising considering the patient's echocardiogram shows severe LV dysfunction. WBC count today is 12.6 hemoglobin 11.7 electrolytes are normal renal profile is normal, did not see a note from cardiology and this patient yesterday and today, the last note was from 12/21 which stated clearly that the patient has poor prognosis, likelihood of recovery from LV dysfunction is very poor, and basically recommended DNR CODE STATUS. The CODE STATUS was changed to DNR already. Patient was seen today on 12/24/2024, remains in the ICU, patient was on dobutamine and examined yesterday, this was discontinued by cardiology, patient is in bed, on room air, IV fluid at KVO, remains on Lasix at 40 mg IV push every 8 hours, remains on Eliquis and is also on Rocephin. Much better today, patient is calm, although he had few episodes of agitations yesterday, but did not r equire going back on Precedex. Chest x-ray yesterday was still showing evidence of pulmonary edema, underlying infiltrate is not entirely ruled out and as far as I am concerned it is felt to be less likely. Patient is having a swallow evaluation today. WBC count is 8.1 hemoglobin 12.3 electrolytes are normal potassium 3.9 BUN is 23 creatinine 0.89. Objective - Vital Signs Vital signs: Vital Signs Temp 97.9 F 12/24/24 08:00 Pulse 101 H 12/24/24 09:00 Resp 18 12/24/24 09:00 BP 116/86 12/23/24 06:00 Pulse Ox 94 L 12/24/24 09:00 FiO2 30 12/22/24 09:58 Intake & Output 12/23/24 12/24/24 12/24/24 18:59 06:59 18:59 Intake Total 779.881 756 119 Output Total 965 570 100 Balance -185.119 186 19 Weight 69.5 kg 68.6 kg Intake: IV 303 276 119 0.9 Normal Saline @ KVO 220 240 60 0.9 Pressure bag 33 36 9 cefTRIAXone 2 gm In 50 50 Sodium Chloride 0.9% 50 ml @ 100 mls/hr IVPB Q24HR [facility] Rx#:[id number] Intake, IV Titration 276.881 Amount Amiodarone 450 mg In 176.881 Dextrose 5% in Water 250 ml @ 0.5 MG/MIN 16.667 mls/hr IV .Q15H [facility] Rx#: [id number] Potassium Chloride 10 meq 100 In Water For Injection 1 100ml.bag @ 100 mls/hr IVPB Q1H [facility] Rx#: [id number] Oral 200 480 Output: Urine 965 570 100 Other: Voiding Method Indwelling Catheter Indwelling Catheter Indwelling Catheter # Voids 1 # Bowel Movements 1 ABP, PAP, CO, CI - Last Documented Arterial Blood Pressure 138/75 - Exam GENERAL: revealed a 74-year-old white male on room air HEENT: Pupils are round and equally reacting to light. EOMI. No scleral icterus. No conjunctival pallor. Normocephalic, atraumatic. No pharyngeal erythema. No thyromegaly. CARDIOVASCULAR: Distant S1-S2, no S3 gallop, no murmur. PULMONARY: Symmetrical chest expansion, crackles at the bases persist. ABDOMEN: Soft, nontender, nondistended, normoactive bowel sounds. No palpable organomegaly. MUSCULOSKELETAL: No deformities and no limitation range of motion EXTREMITIES: No clubbing, trace of edema, no cyanosis. NEUROLOGICAL: Alert and oriented x 3 no gross focal neurologic deficit SKIN: No rashes. Psychiatric: Normal mood affect and no mental status examination. - Labs CBC & Chem 7: 12/24/24 05:15 12/24/24 09:10 Labs: Abnormal Lab Results - Last 24 Hours (Table) 12/24/24 12/24/24 Range/Units 05:15 05:15 RBC 3.94 L (4.30-5.90) m/uL Hgb 12.3 L (13.0-17.5) gm/dL Hct 37.6 L (39.0-53.0) % Sodium 135 L (137-145) mmol/L Chloride 97 L (98-107) mmol/L Carbon Dioxide 35 H (22-30) mmol/L Assessment and Plan Assessment: Impression: Acute hypoxic respiratory failure secondary to cardiogenic shock and severe LV dysfunction, nonischemic in nature. Patient was extubated on 12/22/2024 Acute on chronic systolic congestive heart failure Nonischemic cardiomyopathy with normal cardiac catheterization but severe LV dysfunction ejection fraction of 5 to 10% Chronic atrial fibrillation, rate controlled. Moderate mitral regurgitation History of substance abuse/cocaine History of alcoholism, could be the leading cause of his cardiomyopathy and LV dysfunction Benign essential hypertension Acute urinary tract infection Dyslipidemia Benign prostatic hyperplasia Recommendation: Considering that the patient is off dobutamine since yesterday and tolerating that well, I will likely transfer the patient out of the ICU to a monitored bed and selective. In the meantime: Continue Lasix 40 mg IV push every 8 hours Continue Eliquis Continue empiric antibiotics/Rocephin Continue thiamine and CIWA protocol Continue IV fluid at O Will review the results of the swallow evaluation today. Patient will be downgraded to 3 S., and we will continue to follow, considering his severe cardiomyopathy with very low ejection fraction, patient is still marginal at best, and prognosis remains extremely guarded. Time with Patient: Less than 30
[2024-12-24] MEDS: ACETAMINOPHEN TAB 325 MG TAB PO PRN (12:50)
--- NOTE | 2024-12-24 12:53 | FL ---
EXAMINATION TYPE: FL barium swallow w video DATE OF EXAM: 12/24/2024 MODIFIED SWALLOW / DEGLUTITION STUDY CLINICAL HISTORY: Dysphagia. TECHNIQUE: Deglutition study is performed utilizing thin liquid barium, honey and nectar thick liqui d barium, barium thick applesauce, and barium coated cracker. 3.19 minutes of fluoro time and 1 imag es obtained. Total dose area product (DAP) in uGy*m?, mGy*cm? (or similar): 291.73. . Image obtained shows degenerative changes in the cervical spine. COMPARISON: Prior modified barium swallow November 17, 2024. FINDINGS: The oral and pharyngeal phases show satisfactory initiation and propagation with all modali ties tested. Satisfactory mastication is seen with solid modalities tested. There is no evidence of penetration or aspiration with any modality tested. Moderate to severe pharyngeal residuals were appr eciated. IMPRESSION: Significant pharyngeal residuals but no aspiration observed. Please refer to speech therapist notes for further details if necessary. [facility], , 12/24/2024 12:50 PM
--- NOTE | 2024-12-24 12:57 | P.PN ---
Subjective Progress Note Date: 12/24/24 patient is a 74-year-old gentleman past medical history significant for hypertension, hyperlipidemia, systolic CHF, paroxysmal A-fib, who presents the ER because of chest pain and shortness of breath. Patient was admitted in the hospital in November at which time patient was found to have cardiomyopathy and had cardiac cath done which showed normal coronaries. Patient was discharged to rehab facility from where he was discharged home a couple of days back. Patient stated ever since discharge he has been having chest pain in the central location, pressure-like, nonradiating, no aggravating or relieving factor associated with this chest pain. patient also complains of shortness of breath Present on exertion. Patient denies any fever or chills. There is no complaint of orthopnea or PND. Denies any swelling of feet. Because of this shortness of breath, patient came to the ER Initial lab work done in the ER showed WBC 8.2, hemoglobin 13.3, platelet count 282, sodium 139, potassium 5.4, BUN 20, creatinine 1.19, calcium 9.7, bilirubin 1.4, AST 23, ALT 21, troponin 0.012 Urine done showed large amount of leukocyte Estrace, urine WBC 182 EKG done in the ER showed heart rate of 159, irregular in rate and rhythm, no ST segment elevation or depression seen, no T-wave inversions seen. Chest x-ray done in the ER showed cardiomegaly, pulm vascular congestion and bilateral pleural effusion Patient admitted to internal medicine service 12/17. Patient seen and examined. Patient had a rapid response called yesterday afternoon for bradycardia at which time patient AV node blocking agents were discontinued. Patient continued to be bradycardic, cardiology took patient for cardiac catheter for temporary pacemaker insertion. Patient was transferred to ICU where patient was later on intubated because of respiratory distress 12/19/2024 --the patient is seen and evaluated in room at bedside; remains in ICU, sedated on the mechanical ventilator. The patient remains on propofol running at 35 mcg/kg/min. The patient is on dobutamine at 5 mcg/kg/min. Remains on assist-control mode mechanical ventilation. Blood gas showed pH of 7.45 with a pCO2 of 38 and pO2 of 126. Fluid balance is +1.3 L over the past 24 hours. The patient was started on IV Lasix. The patient is also on metoprolol. The patient remains in atrial fibrillation. Metoprolol is being given at a dose of 50 mg p.o. and the dose has been modified to 3 times daily. Remains on anticoagulation with Eliquis. Remains on broad- spectrum antibiotics with IV Rocephin. Chest x-ray still consistent with pulmonary edema. He is afebrile. -patient also have a significantly positive UA some mental status changes history of prostate disorder with prostatomegaly seen on CT component of UTI not entirely excluded likely due to gram-negative pathogen -patient is afebrile and his white count is normal, repeat UA and showed improvement compared to admission UA continue with Rocephin 12/20 Patient is awake and does not follow commands while he is intubated He is on restraints He is currently getting pelvic breaks and dobutamine drips Yesterday propofol was tried to wean him down he got agitated will during sedation holiday trying to attack staff. 12/21. Patient seen and examined. Blood work done today showed WBC 9.1, hemoglobin 13, platelet count 199 sodium 130, potassium 4.5, BUN 18, creatinine 0.94. Patient was given sedation holiday today. Family at the bedside, they were updated 12/22. Patient seen and examined.Blood work this morning showed WBC 9.4, hemoglobin 0.7, platelet count 265, sodium 137 potassium 3.5, BUN 21, creatinine 0.77. Patient was extubated this morning, brother at the bedside. Patient at this time is stating that she does not want any more medications. Discussed with brother, hospice will be consulted 12/23. Patient seen and examined.Blood work done this morning showed WBC 12.6, hemoglobin 9.7, sodium 137, potassium 3.8, BUN 19, creatinine 0.77 currently on 2 L of oxygen. Continues to be on dobutamine 12/24 patient seen and examined. Patient is scheduled for video-assisted fluoroscopy today. Patient is off dobutamine drip. Currently on IV Lasix and Rocephin. Patient is being planned for transfer out of ICU today REVIEW OF SYSTEMS: Denies chest pain. Denies shortness of breath PHYSICAL EXAMINATION: GENERAL: The patient is alert HEENT: Pupils are round and equally reacting to light. EOMI. No scleral icterus. No conjunctival pallor. Normocephalic, atraumatic. No pharyngeal erythema. No thyromegaly. CARDIOVASCULAR: S1 and S2 present. No murmurs, rubs, or gallops. PULMONARY: Diminished breath sounds at bases, crackles audible bilateral ABDOMEN: Soft, nontender, nondistended, normoactive bowel sounds. No palpable organomegaly. MUSCULOSKELETAL: No joint swelling or deformity. EXTREMITIES: No cyanosis, clubbing, or pedal edema. NEUROLOGICAL: Gross neurological examination did not reveal any focal deficits. SKIN: No rashes. Assessment and plan Cardiogenic shock Bradycardia Acute hypoxic respiratory failure Acute on chronic systolic CHF, new echo done shows EF of 5 to 10% A-fib with RVR UTI Hyperkalemia History of hyperlipidemia History of hypertension History of chronic systolic CHF with EF of 20-25%, repeat echo shows EF of 5 to 10% Anxiety Depression Monitor vital signs Monitor CBC Monitor CMP Continue telemetry monitoring Aggressive bronchopulmonary hygiene Continue IV Rocephin Strict I's and O's, daily weights, continue IV Lasix 40 3 times daily Continue Eliquis Continue digoxin, Lipitor, Lopressor Cardiology following ICU following ID following Patient has very poor prognosis, patient family updated about it. Labs and medication were reviewed.. Continue same treatment. Continue with symptomatic treatment. Resume home medication. Monitor labs and vitals. DVT and GI prophylaxis. Further recommendations as per clinical course of the patient Dictation was produced using [employer] dictation software. please excuse any grammatical, word or spelling errors. Objective - Vital Signs Vital signs: Vital Signs Temp 97.9 F 12/24/24 08:00 Pulse 101 H 12/24/24 09:00 Resp 18 12/24/24 09:00 BP 116/86 12/23/24 06:00 Pulse Ox 94 L 12/24/24 09:00 FiO2 30 12/22/24 09:58 Intake & Output 12/23/24 12/24/24 12/24/24 18:59 06:59 18:59 Intake Total 779.881 756 119 Output Total 965 570 100 Balance -185.119 186 19 Weight 69.5 kg 68.6 kg Intake: IV 303 276 119 0.9 Normal Saline @ KVO 220 240 60 0.9 Pressure bag 33 36 9 cefTRIAXone 2 gm In 50 50 Sodium Chloride 0.9% 50 ml @ 100 mls/hr IVPB Q24HR [facility] Rx#:[id number] Intake, IV Titration 276.881 Amount Amiodarone 450 mg In 176.881 Dextrose 5% in Water 250 ml @ 0.5 MG/MIN 16.667 mls/hr IV .Q15H [facility] Rx#: [id number] Potassium Chloride 10 meq 100 In Water For Injection 1 100ml.bag @ 100 mls/hr IVPB Q1H [facility] Rx#: [id number] Oral 200 480 Output: Urine 965 570 100 Other: Voiding Method Indwelling Catheter Indwelling Catheter Indwelling Catheter # Voids 1 # Bowel Movements 1 ABP, PAP, CO, CI - Last Documented Arterial Blood Pressure 138/75 - Labs CBC & Chem 7: 12/24/24 05:15 12/24/24 09:10 Labs: Abnormal Lab Results - Last 24 Hours (Table) 12/24/24 12/24/24 Range/Units 05:15 05:15 RBC 3.94 L (4.30-5.90) m/uL Hgb 12.3 L (13.0-17.5) gm/dL Hct 37.6 L (39.0-53.0) % Sodium 135 L (137-145) mmol/L Chloride 97 L (98-107) mmol/L Carbon Dioxide 35 H (22-30) mmol/L
--- NOTE | 2024-12-24 15:00 | P.PN ---
Subjective Progress Note Date: 12/24/24 Principal diagnosis: Reason for follow-up is a UTI Patient is a 74-year-old male with a past medical history significant for COPD hypertension prostate disorder anxiety depression history of heavy alcohol abuse presenting to the hospital for evaluation of chest pain and shortness of breath, patient did have significant breath arrhythmia requiring transvenous pacer intubation admission to ICU also have a positive UA concerning for UTI prompting this consultation. On today's evaluation that is 12/24/2024, the patient continues to be afebrile, the patient is on room air and breathing comfortably, the Pt denies having any chest pain or cough, the patient denies having any abdominal pain no vomiting or any diarrhea has been reported. Patient white count is 8.1, creatinine 0.89 Objective - Vital Signs Vital signs: Vital Signs Temp 98 F 12/24/24 12:00 Pulse 96 12/24/24 12:00 Resp 18 12/24/24 12:00 BP 134/80 12/24/24 12:00 Pulse Ox 98 12/24/24 12:00 FiO2 30 12/22/24 09:58 Intake & Output 12/23/24 12/24/24 12/24/24 18:59 06:59 18:59 Intake Total 779.881 756 119 Output Total 965 570 100 Balance -185.119 186 19 Weight 69.5 kg 68.6 kg Intake: IV 303 276 119 0.9 Normal Saline @ KVO 220 240 60 0.9 Pressure bag 33 36 9 cefTRIAXone 2 gm In 50 50 Sodium Chloride 0.9% 50 ml @ 100 mls/hr IVPB Q24HR [facility] Rx#:[id number] Intake, IV Titration 276.881 Amount Amiodarone 450 mg In 176.881 Dextrose 5% in Water 250 ml @ 0.5 MG/MIN 16.667 mls/hr IV .Q15H [facility] Rx#: [id number] Potassium Chloride 10 meq 100 In Water For Injection 1 100ml.bag @ 100 mls/hr IVPB Q1H [facility] Rx#: [id number] Oral 200 480 Output: Urine 965 570 100 Other: Voiding Method Indwelling Catheter Indwelling Catheter Indwelling Catheter # Voids 1 # Bowel Movements 1 ABP, PAP, CO, CI - Last Documented Arterial Blood Pressure 138/75 - Exam GENERAL DESCRIPTION: An elderly male lying in bed in no distress RESPIRATORY SYSTEM: Unlabored breathing , decreased breath sounds at bases HEART: S1 S2 regular rate and rhythm , ABDOMEN: Soft , no tenderness EXTREMITIES: No edema feet - Labs CBC & Chem 7: 12/24/24 05:15 12/24/24 09:10 Labs: Abnormal Lab Results - Last 24 Hours (Table) 12/24/24 12/24/24 Range/Units 05:15 05:15 RBC 3.94 L (4.30-5.90) m/uL Hgb 12.3 L (13.0-17.5) gm/dL Hct 37.6 L (39.0-53.0) % Sodium 135 L (137-145) mmol/L Chloride 97 L (98-107) mmol/L Carbon Dioxide 35 H (22-30) mmol/L Assessment and Plan (1) UTI (urinary tract infection) Current Visit: Yes Status: Acute Code(s): N39.0 - URINARY TRACT INFECTION, SITE NOT SPECIFIED SNOMED Code(s): 87406684 (2) Leukocytosis Current Visit: Yes Status: Acute Code(s): D72.829 - ELEVATED WHITE BLOOD CELL COUNT, UNSPECIFIED SNOMED Code(s): 097841747 Plan: 1patient presented to hospital with increasing shortness of breath which is more likely underlying cardiac etiology as patient noticed to be in A-fib with RVR subsequent getting to bradycardia arrhythmia for the patient being transferred to ICU as per discussion with admitting physician 2-patient also have a significantly positive UA some mental status changes history of prostate disorder with prostatomegaly seen on CT component of UTI not entirely excluded likely due to gram-negative pathogen 3-patient is afebrile and white count has normalized patient has received adequate antibiotic for underlying UTI we will go ahead and discontinue Rocephin and monitor the patient closely off antibiotic therapy discussed with admitting physician Dictation was produced using [employer] dictation software. please excuse any grammatical, word or spelling errors. Time with Patient: Less than 30
--- NOTE | 2024-12-25 11:19 | P.PN ---
Subjective 74-year-old gentleman past medical history significant for hypertension, hyperlipidemia, systolic CHF, paroxysmal A-fib, who presents the ER because of chest pain and shortness of breath. Patient was admitted in the hospital in November at which time patient was found to have cardiomyopathy and had cardiac cath done which showed normal coronaries. Patient was discharged to rehab facility from where he was discharged home a couple of days back. Patient stated ever since discharge he has been having chest pain in the central location, pressure-like, nonradiating, no aggravating or relieving factor associated with this chest pain. patient also complains of shortness of breath Present on exertion. Patient denies any fever or chills. There is no complaint of orthopnea or PND. Denies any swelling of feet. Because of this shortness of breath, patient came to the ER Initial lab work done in the ER showed WBC 8.2, hemoglobin 13.3, platelet count 282, sodium 139, potassium 5.4, BUN 20, creatinine 1.19, calcium 9.7, bilirubin 1.4, AST 23, ALT 21, troponin 0.012 Urine done showed large amount of leukocyte Estrace, urine WBC 182 EKG done in the ER showed heart rate of 159, irregular in rate and rhythm, no ST segment elevation or depression seen, no T-wave inversions seen. Chest x-ray done in the ER showed cardiomegaly, pulm vascular congestion and bilateral pleural effusion Patient admitted to internal medicine service 12/19/2024 --the patient is seen and evaluated in room at bedside; remains in ICU, sedated on the mechanical ventilator. The patient remains on propofol running at 35 mcg/kg/min. The patient is on dobutamine at 5 mcg/kg/min. Remains on assist-control mode mechanical ventilation. Blood gas showed pH of 7.45 with a pCO2 of 38 and pO2 of 126. Fluid balance is +1.3 L over the past 24 hours. The patient was started on IV Lasix. The patient is also on metoprolol. The patient remains in atrial fibrillation. Metoprolol is being given at a dose of 50 mg p.o. and the dose has been modified to 3 times daily. Remains on anticoagulation with Eliquis. Remains on broad- spectrum antibiotics with IV Rocephin. Chest x-ray still consistent with pulmonary edema. He is afebrile. -patient also have a significantly positive UA some mental status changes history of prostate disorder with prostatomegaly seen on CT component of UTI not entirely excluded likely due to gram-negative pathogen -patient is afebrile and his white count is normal, repeat UA and showed improvement compared to admission UA continue with Rocephin 12/20 Patient is awake and does not follow commands while he is intubated He is on restraints He is currently getting pelvic breaks and dobutamine drips Yesterday propofol was tried to wean him down he got agitated will during sedation holiday trying to attack staff. 12/25 Patient currently in the select unit, fully awake and oriented, looks improved, no chest pain or dyspnea. Mentation at baseline. No significant leg edema and he has mild right basal crepitation Appetite is good. Able to ambulate. No bowel problems He passed swallow evaluation showing significant pharyngeal residual but no overt aspiration, currently he is on regular diet Patient finished his antibiotic Rocephin. ID team on the case He is currently on IV Lasix 40 mg 3 times daily and Eliquis. Also digoxin and metoprolol 100 mg 3 times daily added Objective - Vital Signs Vital signs: Vital Signs Temp 98 F 12/25/24 08:25 Pulse 91 12/25/24 08:25 Resp 16 12/25/24 08:25 BP 151/87 12/25/24 08:25 Pulse Ox 94 L 12/25/24 08:25 FiO2 30 12/22/24 09:58 Intake & Output 12/24/24 12/25/24 12/25/24 18:59 06:59 18:59 Intake Total 489 148 Output Total 1351 550 Balance -862 -402 Intake: IV 129 30 0.9 Normal Saline @ KVO 60 0.9 Pressure bag 9 Invasive Line 6 10 30 cefTRIAXone 2 gm In 50 Sodium Chloride 0.9% 50 ml @ 100 mls/hr IVPB Q24HR [facility] Rx#:[id number] Oral 360 118 Output: Urine 1350 550 Stool 1 Other: Voiding Method Indwelling Catheter Indwelling Catheter Indwelling Catheter ABP, PAP, CO, CI - Last Documented Arterial Blood Pressure 138/75 - Exam -GENERAL: The patient is awake, more oriented, not in distress HEENT: Pupils are round and equally reacting to light. EOMI. No scleral icterus. No conjunctival pallor. Normocephalic, atraumatic. No pharyngeal erythema. No thyromegaly. CARDIOVASCULAR: S1 and S2 present. No murmurs, rubs, or gallops. PULMONARY: Chest is clear to auscultation, no wheezing , no crackles. ABDOMEN: Soft, nontender, nondistended, normoactive bowel sounds. No palpable organomegaly. MUSCULOSKELETAL: No joint swelling or deformity. EXTREMITIES: No cyanosis, clubbing, or pedal edema. NEUROLOGICAL: Gross neurological examination did not reveal any focal deficits. SKIN: No rashes. no petechiae. - Labs CBC & Chem 7: 12/24/24 05:15 12/24/24 09:10 Assessment and Plan Assessment: Cardiogenic shock, improved Bradycardia, resolved Acute hypoxic respiratory failure, currently on room air Acute on chronic systolic CHF, new echo done shows EF of 5 to 10% A-fib with RVR, rate controlled currently UTI, finished antibiotics Hyperkalemia, resolved History of hyperlipidemia History of hypertension History of chronic systolic CHF with EF of 20-25%, repeat echo shows EF of 5 to 10% Anxiety Depression Plan: Murali currently kept off dobutamine drip since 2 days ago Continue with IV Lasix 40 mg Patient is currently on Eliquis Patient finish his IV antibiotic. Several consultants on the case including ID team, cardiology and pulmonary GI prophylaxis: Pepcid DVT prophylaxis Eliquis Prognosis remains guarded
--- NOTE | 2024-12-25 13:26 | P.PN ---
Subjective Progress Note Date: 12/25/24 74-year-old male patient, known history of severe cardiomyopathy with an ejection fraction of 20%, nonischemic cardiomyopathy, known history of chronic atrial fibrillation, mitral regurgitation, hypertension hyperlipidemia and history of alcoholism. Cardiac catheterization done during recent hospitalizat ion showed normal coronaries. Patient presented to the emergency department with worsening shortness of breath. No reported chest pain. No leg edema. In the emergency, the patient was found to be in A-fib RVR, started on IV heparin and Cardizem drip for rate control. Subsequently, the patient started having episodes of bradycardia. Cardizem drip was discontinued. The patient was having significant bradycardia with hypotension and his heart rate was in the low 30s, A-fib rhythm. Elevated echocardiogram was done and it showed further impairment of the LV function with an EF of around 5 to 10%. There was global reduction of the LV systolic function. Cardiology was involved and the patient was taken to the [facility] and the patient was given a TVP set at the rate of 80. Following that, the patient got moved to the intensive care unit. Upon arrival, the patient was provided lethargic, short of breath, hypotensive. He was already on dopamine which is running at 5 mcg/kg/min. Blood gas showed a pH of 7.23 with a pCO2 of 43.8 and P02 234 and this was done on 100 % NRB. Based on the overall condition, the patient was intubated placed on ventilator. He is on propofol at 35 mcg/kg/min. UO is 100 cc/hr. He is on mechanical ventilator and he is on AC at a rate of 18 , TV 450, FI02 60 and PEEP of 10. Blood work showed a white cell count of 8.3, hemoglobin of 13.3 and a platelet count of 282. The patient has a sodium level of 135 potassium is at 5.4, bicarb is at 16, BUN is 20 with a creatinine of 1.1. proBNP level is more than 10,000. TSH is 4.4. LFTs are normal. UA is positive for white cells and leukocyte esterase with many bacteria. Patient was started on IV Rocephin. Postintubation chest x-ray shows evidence of pulmonary edema and bilateral pleural effusion.. Tube is in good location. There is evidence of pulm vascular congestion and moderate-sized bilateral pleural effusions. A triple-lumen catheter and arterial line was established. On 12/17/2024, the patient is being seen for a follow-up. The patient remains intubated on mechanical ventilator. This morning, the patient had a propofol running at 50 mcg/kg/min. The patient is calm and comfortable and successful mechanical ventilator. His assist-control mode at rate of 18, tidal volume of 450, FiO2 of 40% and PEEP of 10. The blood gas from today shows a pH of 7.42 with a pCO2 of 30 and pO2 of 242. Chest x-rayIs showing pulmonary vascular congestion/edema consistent with CHF. The patient has a TVP placed and the TVP is currently at a backup rate of 60. Meanwhile, the patient heart rate is improved and currently his heart rate is in the low 90s 100 range, still in atrial fibrillation the patient currently is on dobutamine 5 mcg/kg/min. Urine output is adequate. Afebrile. No pressors for now. White cell count is at 8 with a hemoglobin 12.2 and a platelet count of 239. Sodium is at 131, potassium is at 4.3, bicarb is at 19, BUN is 27 with a creatinine of 1.7 and the patient has sustained acute kidney injury. LFTs are mildly elevated including a mild elevation of the AST and ALT. Urine drug screen is positive for cocaine. The patient remains on IV Rocephin on an empiric basis pending further cultures. 12/18/2024, the patient is being seen for a follow-up. Remains intubated on mechanical ventilator, currently on propofol running at 50 mcg/kg/min,, comfortable and synchronous with the mechanical ventilator which is set at a rate of 18, tidal volume of 450, FiO2 40% with a PEEP of 5. Blood gas showed pH of 7.49 with a pCO2 of 28 and pO2 of 159. He remains in atrial fibrillation, rate is controlled and the patient remains on dobutamine at 5 mcg/kg/min. TVP backup is at 50. He is on vital HP at rate of 20 cc an hour. Chest x-ray is consistent with CHF with pulm vascular congestion and edema. The white cell count is 6.1, hemoglobin 12.3, platelet count of 225, sodium is at 137, BUN is 18 with a creatinine of 1 and a serum bicarb of 21. No fever. No other significant events overnight. 12/19/2024, the patient remains sedated on the mechanical ventilator. Sedation holiday was given and the patient was quite restless and agitated and was not following commands. This was reported yesterday and another sedation holiday will be done today. The patient remains on propofol running at 35 mcg/kg/min. The patient is on dobutamine at 5 mcg/kg/min. Remains on assist-control mode mechanical ventilation at rate of 12, tidal volume of 500, FiO2 35% with a PEEP of 5. Blood gas showed pH of 7.45 with a pCO2 of 38 and pO2 of 126. Fluid balance is +1.3 L over the past 24 hours. The patient was started on IV Lasix. The patient is also on metoprolol. The patient remains in atrial fibrillation. Metoprolol is being given at a dose of 50 mg p.o. and the dose has been modified to 3 times daily. Remains on anticoagulation with Eliquis. Remains on broad- spectrum antibiotics with IV Rocephin. Chest x-ray still consistent with pulmonary edema. He is afebrile. Patient was seen today on 12/20/2024, remains in the ICU, intubated and mechanically ventilated. Patient is on assist-control rate of 12 tidal volume 450 FiO2 35% and PEEP of 5. ABG showed a pO2 of 108 pCO2 42 pH of 7.51. Hence no changes were made in vent settings. Drips garcia, patient remains on dobutamine at 2.5 mg/kg/min Cleviprex at 1 mg/h, Precedex at 0.6 mcg/kg/h, propo fol at 15 mcg/kg/min. Patient is on Lasix 40 mg IV push twice daily remains on Rocephin, and he remains on Eliquis. Nutrition garcia patient is receiving vital HP at 40 cc/h, however it is presently on hold because of high residual of over 800 cc. Patient has not been able to wean mostly because of the extreme agitation when he is off the propofol Lozano presently on Precedex and propofol. And the plan is to continue maximal dose of Precedex, and continue to try daily trials of weaning. Will try this again today, however remind you patient has a very low ejection fraction of 5 to 10%, patient has what seems to be a picture of nonischemic cardiomyopathy and LV dysfunction. Chest x-ray today showed mostly no major change, pleural effusions remain unchanged, patient has bibasilar opacities consistent with congestive heart failure. Underlying pneumonia is not entirely ruled out. WBC count is normal, no evidence of leukocytosis, his electrolytes are normal, bicarb is elevated at 34, BUN is 12 creatinine 0.7. Patient was seen today on 12/21/2024, patient remains in the ICU, intubated and mechanically ventilated, on assist-control rate of 12 tidal volume 450 FiO2 35% and PEEP of 5 ABG showed a pO2 of 110 pCO2 4 0 pH of 7.51 hence FiO2 was cut down to 30%. Patient remains on multiple drips including propofol at 30 mg/kg/min dobutamine at 2.5 mg/kg/min amiodarone 1 mg/min he is also on vital HP at 20 cc/h Eliquis Lasix 40 mg IV push every 12 hours and he is on Rocephin empirically. Chest x-ray is showing improvement in his pulmonary edema. Clinically however the patient is about the same. Yesterday attempts were made to wean the patient from propofol and he became extremely agitated. Today he seems to be calm, however we will try again propofol and possibly use Precedex if necessary. WBC count is 9.1 hemoglobin 13.0 electrolytes are normal, renal profile is normal. Patient was seen today on 12/22/2024, patient remains in the ICU, intubated and mechanically ventilated. He is on assist-control rate of 12 tidal volume 450 FiO2 30% PEEP of 5 ABG showed a pO2 of 100 pCO2 43 pH of 7.51. Patient remains on dobutamine at 2.5 mcg/kg/min, continues to have decent urine output with dobutamine and on Lasix. Patient remains on Rocephin empirically, and remind you patient has a very low ejection fraction of 5 to 10%. His chest x-ray today showed evidence of pulmonary edema, he did receive Lasix earlier today, and he was responding to Lasix. The overall clinical picture is still critical in the situation, however considering the patient is off all narcotics, off sedatives, off Precedex, I will keep him on dobutamine, and I will give the patient a trial of weaning using pressure support of 10 and CPAP. If tolerated, and if his ABG is noted to be reasonable, then may consider weaning and extubating this patient. Chest x-ray was reviewed is consistent with pulmonary edema WBC count is 9.4 hemoglobin 12.7, electrolytes and basic metabolic profile are normal. Patient was seen today on 12/23/2024, patient remains in the ICU, he was extubated yesterday, remains on 2 L nasal cannula, remains on dobutamine 2.5 mg/kg/min remains on amiodarone at 0.5 mg/min, IV fluids at KVO remains on Lasix 40 mg IV push every 12 hours, however I increased the dose to 40 mg IV push Q8. Chest x-ray continues to show pulmonary edema, and just not surprising considering the patient's echocardiogram shows severe LV dysfunction. WBC count today is 12.6 hemoglobin 11.7 electrolytes are normal renal profile is normal, did not see a note from cardiology and this patient yesterday and today, the last note was from 12/21 which stated clearly that the patient has poor progno sis, likelihood of recovery from LV dysfunction is very poor, and basically recommended DNR CODE STATUS. The CODE STATUS was changed to DNR already. Patient was seen today on 12/24/2024, remains in the ICU, patient was on dobutamine and examined yesterday, this was discontinued by cardiology, patient is in bed, on room air, IV fluid at KVO, remains on Lasix at 40 mg IV push every 8 hours, remains on Eliquis and is also on Rocephin. Much better today, patient is calm, although he had few episodes of agitations yesterday, but did not require going back on Precedex. Chest x-ray yesterday was still showing evidence of pulmonary edema, underlying infiltrate is not entirely ruled out and as far as I am concerned it is felt to be less likely. Patient is having a swallow evaluation today. WBC count is 8.1 hemoglobin 12.3 electrolytes are normal potassium 3.9 BUN is 23 creatinine 0.89. The patient is seen today December 25, 2024 in follow-up on the selective care unit. He was transferred out of the intensive care unit yesterday. He is awake and alert in no acute distress. Resting comfortably in bed. Containing good O2 saturations in the mid 90s on room air. He is afebrile. Hemodynamically stable. He did pass his swallow evaluation. No evidence of aspiration. White count 8.1. Hemoglobin 12.3. Platelets 299. Sodium 135. Potassium 3.5. Bicarb 35. BUN 20. Creatinine 0.89. Glucose 86. He is continued on IV diuretics. Anticoagulated with Eliquis. Albuterol as needed. He is currently in a -1.2 L balance. Objective - Vital Signs Vital signs: Vital Signs Temp 98.2 F 12/25/24 12:54 Pulse 91 12/25/24 12:54 Resp 16 12/25/24 12:54 BP 107/64 12/25/24 12:54 Pulse Ox 95 12/25/24 12:54 FiO2 30 12/22/24 09:58 Intake & Output 12/24/24 12/25/24 12/25/24 18:59 06:59 18:59 Intake Total 489 148 240 Output Total 1351 550 Balance -862 -402 240 Intake: IV 129 30 0.9 Normal Saline @ KVO 60 0.9 Pressure bag 9 Invasive Line 6 10 30 cefTRIAXone 2 gm In 50 Sodium Chloride 0.9% 50 ml @ 100 mls/hr IVPB Q24HR [facility] Rx#:[id number] Oral 360 118 240 Output: Urine 1350 550 Stool 1 Other: Voiding Method Indwelling Catheter Indwelling Catheter Indwelling Catheter ABP, PAP, CO, CI - Last Documented Arterial Blood Pressure 138/75 - Exam GENERAL EXAM: Alert, 74-year-old male patient, on room air, resting comfortably in bed, in no apparent distress. HEAD: Normocephalic. EYES: Normal reaction of pupils, equal size. NOSE: Clear with pink turbinates. THROAT: No erythema or exudates. NECK: No masses, no JVD. CHEST: No chest wall deformity. LUNGS: Equal air entry with no crackles, wheeze, rhonchi or dullness. CVS: S1 and S2 normal with no audible murmur, regular rhythm. ABDOMEN: No hepatosplenomegaly, normal bowel sounds, no guarding or rigidity. SPINE: No scoliosis or deformity SKIN: No rashes CENTRAL NERVOUS SYSTEM: No focal deficits, tone is normal in all 4 extremities. EXTREMITIES: There is no peripheral edema. No clubbing, no cyanosis. Peripheral pulses are intact. - Labs CBC & Chem 7: 12/24/24 05:15 12/24/24 09:10 Assessment and Plan Assessment: Acute hypoxic respiratory failure secondary to cardiogenic shock and severe LV dysfunction, nonischemic in nature. Patient was extubated on 12/22/2024. Recovered and on room air Acute on chronic systolic congestive heart failure Nonischemic cardiomyopathy with normal cardiac catheterization but severe LV dysfunction ejection fraction of 5 to 10% Chronic atrial fibrillation, rate controlled Moderate mitral regurgitation History of substance abuse/cocaine History of alcoholism, could be the leading cause of his cardiomyopathy and LV dysfunction Benign essential hypertension Acute urinary tract infection Dyslipidemia Benign prostatic hyperplasia Plan: The patient was seen and evaluated Medications reviewed Stable and on room air Passed his swallow evaluation Continued on IV diuretics Remains in a negative balance Anticoagulated with Eliquis Bronchodilators as needed Increase his activity as tolerated Plan is for subacute rehab at discharge I have personally seen and examined the patient, performed the documentation and the assessment and plan as written. Number of minutes spent on the visit: 10 Dictation was produced using [email or web address] dictation software. Please excuse any grammatical, word or spelling errors.
--- NOTE | 2024-12-25 14:59 | P.PN ---
Subjective Progress Note Date: 12/25/24 Principal diagnosis: Reason for follow-up is a UTI Patient is a 74-year-old male with a past medical history significant for COPD hypertension prostate disorder anxiety depression history of heavy alcohol abuse presenting to the hospital for evaluation of chest pain and shortness of breath, patient did have significant breath arrhythmia requiring transvenous pacer intubation admission to ICU also have a positive UA concerning for UTI prompting this consultation. On today's evaluation that is 12/25/2024, patient did not have any fever and denies any chills, patient is breathing comfortably on room air, patient with no chest pain or cough patient did not have any abdominal pain nausea vomiting or any loose stools, mention feeling better wants to go home. Patient white count is 8.1, creatinine 0.89 Objective - Vital Signs Vital signs: Vital Signs Temp 98.2 F 12/25/24 12:54 Pulse 91 12/25/24 12:54 Resp 16 12/25/24 12:54 BP 107/64 12/25/24 12:54 Pulse Ox 95 12/25/24 12:54 FiO2 30 12/22/24 09:58 Intake & Output 12/24/24 12/25/24 12/25/24 18:59 06:59 18:59 Intake Total 489 148 480 Output Total 1351 550 800 Balance -862 -402 -320 Intake: IV 129 30 0.9 Normal Saline @ KVO 60 0.9 Pressure bag 9 Invasive Line 6 10 30 cefTRIAXone 2 gm In 50 Sodium Chloride 0.9% 50 ml @ 100 mls/hr IVPB Q24HR [facility] Rx#:[id number] Oral 360 118 480 Output: Urine 1350 550 800 Stool 1 Other: Voiding Method Indwelling Catheter Indwelling Catheter Indwelling Catheter # Bowel Movements 0 ABP, PAP, CO, CI - Last Documented Arterial Blood Pressure 138/75 - Exam GENERAL DESCRIPTION: An elderly male lying in bed in no distress RESPIRATORY SYSTEM: Unlabored breathing , decreased breath sounds at bases HEART: S1 S2 regular rate and rhythm , ABDOMEN: Soft , no tenderness EXTREMITIES: No edema feet - Labs CBC & Chem 7: 12/24/24 05:15 12/24/24 09:10 Assessment and Plan (1) UTI (urinary tract infection) Current Visit: Yes Status: Acute Code(s): N39.0 - URINARY TRACT INFECTION, SITE NOT SPECIFIED SNOMED Code(s): 22524169 (2) Leukocytosis Current Visit: Yes Status: Acute Code(s): D72.829 - ELEVATED WHITE BLOOD CELL COUNT, UNSPECIFIED SNOMED Code(s): 418123318 Plan: 1patient presented to hospital with increasing shortness of breath which is more likely underlying cardiac etiology as patient noticed to be in A-fib with RVR subsequent getting to bradycardia arrhythmia for the patient being transferred to ICU as per discussion with admitting physician 2-patient also have a significantly positive UA some mental status changes h istory of prostate disorder with prostatomegaly seen on CT component of UTI not entirely excluded likely due to gram-negative pathogen 3-patient is afebrile and white count has normalized patient has received adequate antibiotic for underlying UTI, 4Rocephin was discontinued yesterday and is currently being monitored closely off antibiotic therapy Dictation was produced using [email or web address] dictation software. please excuse any grammatical, word or spelling errors. Time with Patient: Less than 30
[2024-12-25] MEDS: oxyCODONE-APAP 5-325MG 1 EACH TAB PO PRN (17:54)
[2024-12-25] MEDS: FAMOTIDINE 20 MG/2 ML VIAL IV SCH (21:19)
--- NOTE | 2024-12-26 13:44 | P.PN ---
Subjective Progress Note Date: 12/26/24 74-year-old male patient, known history of severe cardiomyopathy with an ejection fraction of 20%, nonischemic cardiomyopathy, known history of chronic atrial fibrillation, mitral regurgitation, hypertension hyperlipidemia and history of alcoholism. Cardiac catheterization done during recent hospitalizat ion showed normal coronaries. Patient presented to the emergency department with worsening shortness of breath. No reported chest pain. No leg edema. In the emergency, the patient was found to be in A-fib RVR, started on IV heparin and Cardizem drip for rate control. Subsequently, the patient started having episodes of bradycardia. Cardizem drip was discontinued. The patient was having significant bradycardia with hypotension and his heart rate was in the low 30s, A-fib rhythm. Elevated echocardiogram was done and it showed further impairment of the LV function with an EF of around 5 to 10%. There was global reduction of the LV systolic function. Cardiology was involved and the patient was taken to the Rf Manager and the patient was given a TVP set at the rate of 80. Following that, the patient got moved to the intensive care unit. Upon arrival, the patient was provided lethargic, short of breath, hypotensive. He was already on dopamine which is running at 5 mcg/kg/min. Blood gas showed a pH of 7.23 with a pCO2 of 43.8 and P02 234 and this was done on 100 % NRB. Based on the overall condition, the patient was intubated placed on ventilator. He is on propofol at 35 mcg/kg/min. UO is 100 cc/hr. He is on mechanical ventilator and he is on AC at a rate of 18 , TV 450, FI02 60 and PEEP of 10. Blood work showed a white cell count of 8.3, hemoglobin of 13.3 and a platelet count of 282. The patient has a sodium level of 135 potassium is at 5.4, bicarb is at 16, BUN is 20 with a creatinine of 1.1. proBNP level is more than 10,000. TSH is 4.4. LFTs are normal. UA is positive for white cells and leukocyte esterase with many bacteria. Patient was started on IV Rocephin. Postintubation chest x-ray shows evidence of pulmonary edema and bilateral pleural effusion.. Tube is in good location. There is evidence of pulm vascular congestion and moderate-sized bilateral pleural effusions. A triple-lumen catheter and arterial line was established. On 12/17/2024, the patient is being seen for a follow-up. The patient remains intubated on mechanical ventilator. This morning, the patient had a propofol running at 50 mcg/kg/min. The patient is calm and comfortable and successful mechanical ventilator. His assist-control mode at rate of 18, tidal volume of 450, FiO2 of 40% and PEEP of 10. The blood gas from today shows a pH of 7.42 with a pCO2 of 30 and pO2 of 242. Chest x-rayIs showing pulmonary vascular congestion/edema consistent with CHF. The patient has a TVP placed and the TVP is currently at a backup rate of 60. Meanwhile, the patient heart rate is improved and currently his heart rate is in the low 90s 100 range, still in atrial fibrillation the patient currently is on dobutamine 5 mcg/kg/min. Urine output is adequate. Afebrile. No pressors for now. White cell count is at 8 with a hemoglobin 12.2 and a platelet count of 239. Sodium is at 131, potassium is at 4.3, bicarb is at 19, BUN is 27 with a creatinine of 1.7 and the patient has sustained acute kidney injury. LFTs are mildly elevated including a mild elevation of the AST and ALT. Urine drug screen is positive for cocaine. The patient remains on IV Rocephin on an empiric basis pending further cultures. 12/18/2024, the patient is being seen for a follow-up. Remains intubated on mechanical ventilator, currently on propofol running at 50 mcg/kg/min,, comfortable and synchronous with the mechanical ventilator which is set at a rate of 18, tidal volume of 450, FiO2 40% with a PEEP of 5. Blood gas showed pH of 7.49 with a pCO2 of 28 and pO2 of 159. He remains in atrial fibrillation, rate is controlled and the patient remains on dobutamine at 5 mcg/kg/min. TVP backup is at 50. He is on vital HP at rate of 20 cc an hour. Chest x-ray is consistent with CHF with pulm vascular congestion and edema. The white cell count is 6.1, hemoglobin 12.3, platelet count of 225, sodium is at 137, BUN is 18 with a creatinine of 1 and a serum bicarb of 21. No fever. No other significant events overnight. 12/19/2024, the patient remains sedated on the mechanical ventilator. Sedation holiday was given and the patient was quite restless and agitated and was not following commands. This was reported yesterday and another sedation holiday will be done today. The patient remains on propofol running at 35 mcg/kg/min. The patient is on dobutamine at 5 mcg/kg/min. Remains on assist-control mode mechanical ventilation at rate of 12, tidal volume of 500, FiO2 35% with a PEEP of 5. Blood gas showed pH of 7.45 with a pCO2 of 38 and pO2 of 126. Fluid balance is +1.3 L over the past 24 hours. The patient was started on IV Lasix. The patient is also on metoprolol. The patient remains in atrial fibrillation. Metoprolol is being given at a dose of 50 mg p.o. and the dose has been modified to 3 times daily. Remains on anticoagulation with Eliquis. Remains on broad- spectrum antibiotics with IV Rocephin. Chest x-ray still consistent with pulmonary edema. He is afebrile. Patient was seen today on 12/20/2024, remains in the ICU, intubated and mechanically ventilated. Patient is on assist-control rate of 12 tidal volume 450 FiO2 35% and PEEP of 5. ABG showed a pO2 of 108 pCO2 42 pH of 7.51. Hence no changes were made in vent settings. Drips garcia, patient remains on dobutamine at 2.5 mg/kg/min Cleviprex at 1 mg/h, Precedex at 0.6 mcg/kg/h, propo fol at 15 mcg/kg/min. Patient is on Lasix 40 mg IV push twice daily remains on Rocephin, and he remains on Eliquis. Nutrition garcia patient is receiving vital HP at 40 cc/h, however it is presently on hold because of high residual of over 800 cc. Patient has not been able to wean mostly because of the extreme agitation when he is off the propofol Lozano presently on Precedex and propofol. And the plan is to continue maximal dose of Precedex, and continue to try daily trials of weaning. Will try this again today, however remind you patient has a very low ejection fraction of 5 to 10%, patient has what seems to be a picture of nonischemic cardiomyopathy and LV dysfunction. Chest x-ray today showed mostly no major change, pleural effusions remain unchanged, patient has bibasilar opacities consistent with congestive heart failure. Underlying pneumonia is not entirely ruled out. WBC count is normal, no evidence of leukocytosis, his electrolytes are normal, bicarb is elevated at 34, BUN is 12 creatinine 0.7. Patient was seen today on 12/21/2024, patient remains in the ICU, intubated and mechanically ventilated, on assist-control rate of 12 tidal volume 450 FiO2 35% and PEEP of 5 ABG showed a pO2 of 110 pCO2 4 0 pH of 7.51 hence FiO2 was cut down to 30%. Patient remains on multiple drips including propofol at 30 mg/kg/min dobutamine at 2.5 mg/kg/min amiodarone 1 mg/min he is also on vital HP at 20 cc/h Eliquis Lasix 40 mg IV push every 12 hours and he is on Rocephin empirically. Chest x-ray is showing improvement in his pulmonary edema. Clinically however the patient is about the same. Yesterday attempts were made to wean the patient from propofol and he became extremely agitated. Today he seems to be calm, however we will try again propofol and possibly use Precedex if necessary. WBC count is 9.1 hemoglobin 13.0 electrolytes are normal, renal profile is normal. Patient was seen today on 12/22/2024, patient remains in the ICU, intubated and mechanically ventilated. He is on assist-control rate of 12 tidal volume 450 FiO2 30% PEEP of 5 ABG showed a pO2 of 100 pCO2 43 pH of 7.51. Patient remains on dobutamine at 2.5 mcg/kg/min, continues to have decent urine output with dobutamine and on Lasix. Patient remains on Rocephin empirically, and remind you patient has a very low ejection fraction of 5 to 10%. His chest x-ray today showed evidence of pulmonary edema, he did receive Lasix earlier today, and he was responding to Lasix. The overall clinical picture is still critical in the situation, however considering the patient is off all narcotics, off sedatives, off Precedex, I will keep him on dobutamine, and I will give the patient a trial of weaning using pressure support of 10 and CPAP. If tolerated, and if his ABG is noted to be reasonable, then may consider weaning and extubating this patient. Chest x-ray was reviewed is consistent with pulmonary edema WBC count is 9.4 hemoglobin 12.7, electrolytes and basic metabolic profile are normal. Patient was seen today on 12/23/2024, patient remains in the ICU, he was extubated yesterday, remains on 2 L nasal cannula, remains on dobutamine 2.5 mg/kg/min remains on amiodarone at 0.5 mg/min, IV fluids at KVO remains on Lasix 40 mg IV push every 12 hours, however I increased the dose to 40 mg IV push Q8. Chest x-ray continues to show pulmonary edema, and just not surprising considering the patient's echocardiogram shows severe LV dysfunction. WBC count today is 12.6 hemoglobin 11.7 electrolytes are normal renal profile is normal, did not see a note from cardiology and this patient yesterday and today, the last note was from 12/21 which stated clearly that the patient has poor progno sis, likelihood of recovery from LV dysfunction is very poor, and basically recommended DNR CODE STATUS. The CODE STATUS was changed to DNR already. Patient was seen today on 12/24/2024, remains in the ICU, patient was on dobutamine and examined yesterday, this was discontinued by cardiology, patient is in bed, on room air, IV fluid at KVO, remains on Lasix at 40 mg IV push every 8 hours, remains on Eliquis and is also on Rocephin. Much better today, patient is calm, although he had few episodes of agitations yesterday, but did not require going back on Precedex. Chest x-ray yesterday was still showing evidence of pulmonary edema, underlying infiltrate is not entirely ruled out and as far as I am concerned it is felt to be less likely. Patient is having a swallow evaluation today. WBC count is 8.1 hemoglobin 12.3 electrolytes are normal potassium 3.9 BUN is 23 creatinine 0.89. The patient is seen today December 25, 2024 in follow-up on the selective care unit. He was transferred out of the intensive care unit yesterday. He is awake and alert in no acute distress. Resting comfortably in bed. Containing good O2 saturations in the mid 90s on room air. He is afebrile. Hemodynamically stable. He did pass his swallow evaluation. No evidence of aspiration. White count 8.1. Hemoglobin 12.3. Platelets 299. Sodium 135. Potassium 3.5. Bicarb 35. BUN 20. Creatinine 0.89. Glucose 86. He is continued on IV diuretics. Anticoagulated with Eliquis. Albuterol as needed. He is currently in a -1.2 L balance. The patient is seen today December 26, 2024 in follow-up on the selective care unit. He is currently sitting up at the bedside. Awake and alert in no acute distress. Maintaining good O2 saturations in the 90s on room air. He denies any shortness of breath cough or congestion. No new labs today. He is continued on IV diuretics. Anticoagulated with Eliquis. Currently in a -900 mL balance. Objective - Vital Signs Vital signs: Vital Signs Temp 98.7 F 12/26/24 12:39 Pulse 94 12/26/24 12:39 Resp 16 12/26/24 13:13 BP 128/88 12/26/24 12:39 Pulse Ox 98 12/26/24 12:39 FiO2 30 12/22/24 09:58 Intake & Output 12/25/24 12/26/24 12/26/24 18:59 06:59 18:59 Intake Total 720 240 Output Total 800 825 Balance -80 -825 240 Weight 64.6 kg Intake: Oral 720 240 Output: Urine 800 825 Other: Voiding Method Indwelling Catheter Indwelling Catheter Indwelling Catheter # Voids 1 # Bowel Movements 0 ABP, PAP, CO, CI - Last Documented Arterial Blood Pressure 138/75 - Exam GENERAL EXAM: Alert, pleasant 74-year-old male patient, on room air, in no apparent distress. HEAD: Normocephalic. EYES: Normal reaction of pupils, equal size. NOSE: Clear with pink turbinates. THROAT: No erythema or exudates. NECK: No masses, no JVD. CHEST: No chest wall deformity. LUNGS: Equal air entry with no crackles, wheeze, rhonchi or dullness. CVS: S1 and S2 normal with no audible murmur, regular rhythm. ABDOMEN: No hepatosplenomegaly, normal bowel sounds, no guarding or rigidity. SPINE: No scoliosis or deformity SKIN: No rashes CENTRAL NERVOUS SYSTEM: No focal deficits, tone is normal in all 4 extremities. EXTREMITIES: There is no peripheral edema. No clubbing, no cyanosis. Peripheral pulses are intact. - Labs CBC & Chem 7: 12/24/24 05:15 12/24/24 09:10 Assessment and Plan Assessment: Acute hypoxic respiratory failure secondary to cardiogenic shock and severe LV dysfunction, nonischemic in nature. Patient was extubated on 12/22/2024. Recovered and on room air Acute on chronic systolic congestive heart failure Nonischemic cardiomyopathy with normal cardiac catheterization but severe LV dysfunction ejection fraction of 5 to 10% Chronic atrial fibrillation, rate controlled Moderate mitral regurgitation History of substance abuse/cocaine History of alcoholism, could be the leading cause of his cardiomyopathy and LV dysfunction Benign essential hypertension Acute urinary tract infection Dyslipidemia Benign prostatic hyperplasia Plan: The patient was seen and evaluated Medications reviewed Stable and on room air Continued on IV diuretics Remains in a negative balance Anticoagulated with Eliquis Bronchodilators as needed Increase his activity as tolerated Okay for discharge once cleared by cardiology I have personally seen and examined the patient, performed the documentation and the assessment and plan as written. Number of minutes spent on the visit: 10 Dictation was produced using [employer] dictation software. Please excuse any grammatical, word or spelling errors.
--- NOTE | 2024-12-26 15:21 | P.PN ---
Subjective Progress Note Date: 12/26/24 Principal diagnosis: Reason for follow-up is a UTI Patient is a 74-year-old male with a past medical history significant for COPD hypertension prostate disorder anxiety depression history of heavy alcohol abuse presenting to the hospital for evaluation of chest pain and shortness of breath, patient did have significant breath arrhythmia requiring transvenous pacer intubation admission to ICU also have a positive UA concerning for UTI prompting this consultation. On today's evaluation that is 12/26/2024, Patient is afebrile patient is currently on room air and denies having any shortness of breath, the patient denies any chest pain or cough, the patient denies any nausea vomiting did not have any abdominal pain and no diarrhea mention feeling better. Patient white count is 8.1, creatinine 0.89 Objective - Vital Signs Vital signs: Vital Signs Temp 98.7 F 12/26/24 12:39 Pulse 94 12/26/24 12:39 Resp 16 12/26/24 13:13 BP 128/88 12/26/24 12:39 Pulse Ox 98 12/26/24 12:39 FiO2 30 12/22/24 09:58 Intake & Output 12/25/24 12/26/24 12/26/24 18:59 06:59 18:59 Intake Total 720 240 Output Total 800 825 Balance -80 -825 240 Weight 64.6 kg Intake: Oral 720 240 Output: Urine 800 825 Other: Voiding Method Indwelling Catheter Indwelling Catheter Indwelling Catheter # Voids 1 # Bowel Movements 0 ABP, PAP, CO, CI - Last Documented Arterial Blood Pressure 138/75 - Exam GENERAL DESCRIPTION: An elderly male lying in bed in no distress RESPIRATORY SYSTEM: Unlabored breathing , decreased breath sounds at bases HEART: S1 S2 regular rate and rhythm , ABDOMEN: Soft , no tenderness EXTREMITIES: No edema feet - Labs CBC & Chem 7: 12/24/24 05:15 12/24/24 09:10 Assessment and Plan (1) UTI (urinary tract infection) Current Visit: Yes Status: Acute Code(s): N39.0 - URINARY TRACT INFECTION, SITE NOT SPECIFIED SNOMED Code(s): 24979767 (2) Leukocytosis Current Visit: Yes Status: Acute Code(s): D72.829 - ELEVATED WHITE BLOOD CELL COUNT, UNSPECIFIED SNOMED Code(s): 780802531 Plan: 1patient presented to hospital with increasing shortness of breath which is more likely underlying cardiac etiology as patient noticed to be in A-fib with RVR subsequent getting to bradycardia arrhythmia for the patient being transferred to ICU as per discussion with admitting physician 2-patient also have a significantly positive UA some mental status changes history of prostate disorder with prostatomegaly seen on CT component of UTI not entirely excluded likely due to gram-negative pathogen 3-patient is afebrile and white count has normalized patient has received adequate antibiotic for underlying UTI, and is currently being monitored closely of antibiotic therapy no need for antibiotic on discharge Dictation was produced using [employer] dictation software. please excuse any gramm atical, word or spelling errors. Time with Patient: Less than 30
--- NOTE | 2024-12-26 19:11 | P.PN ---
Subjective 74-year-old gentleman past medical history significant for hypertension, hyperlipidemia, systolic CHF, paroxysmal A-fib, who presents the ER because of chest pain and shortness of breath. Patient was admitted in the hospital in November at which time patient was found to have cardiomyopathy and had cardiac cath done which showed normal coronaries. Patient was discharged to rehab facility from where he was discharged home a couple of days back. Patient stated ever since discharge he has been having chest pain in the central location, pressure-like, nonradiating, no aggravating or relieving factor associated with this chest pain. patient also complains of shortness of breath Present on exertion. Patient denies any fever or chills. There is no complaint of orthopnea or PND. Denies any swelling of feet. Because of this shortness of breath, patient came to the ER Initial lab work done in the ER showed WBC 8.2, hemoglobin 13.3, platelet count 282, sodium 139, potassium 5.4, BUN 20, creatinine 1.19, calcium 9.7, bilirubin 1.4, AST 23, ALT 21, troponin 0.012 Urine done showed large amount of leukocyte Estrace, urine WBC 182 EKG done in the ER showed heart rate of 159, irregular in rate and rhythm, no ST segment elevation or depression seen, no T-wave inversions seen. Chest x-ray done in the ER showed cardiomegaly, pulm vascular congestion and bilateral pleural effusion Patient admitted to internal medicine service 12/19/2024 --the patient is seen and evaluated in room at bedside; remains in ICU, sedated on the mechanical ventilator. The patient remains on propofol running at 35 mcg/kg/min. The patient is on dobutamine at 5 mcg/kg/min. Remains on assist-control mode mechanical ventilation. Blood gas showed pH of 7.45 with a pCO2 of 38 and pO2 of 126. Fluid balance is +1.3 L over the past 24 hours. The patient was started on IV Lasix. The patient is also on metoprolol. The patient remains in atrial fibrillation. Metoprolol is being given at a dose of 50 mg p.o. and the dose has been modified to 3 times daily. Remains on anticoagulation with Eliquis. Remains on broad- spectrum antibiotics with IV Rocephin. Chest x-ray still consistent with pulmonary edema. He is afebrile. -patient also have a significantly positive UA some mental status changes history of prostate disorder with prostatomegaly seen on CT component of UTI not entirely excluded likely due to gram-negative pathogen -patient is afebrile and his white count is normal, repeat UA and showed improvement compared to admission UA continue with Rocephin 12/20 Patient is awake and does not follow commands while he is intubated He is on restraints He is currently getting pelvic breaks and dobutamine drips Yesterday propofol was tried to wean him down he got agitated will during sedation holiday trying to attack staff. 12/25 Patient currently in the select unit, fully awake and oriented, looks improved, no chest pain or dyspnea. Mentation at baseline. No significant leg edema and he has mild right basal crepitation Appetite is good. Able to ambulate. No bowel problems He passed swallow evaluation showing significant pharyngeal residual but no overt aspiration, currently he is on regular diet Patient finished his antibiotic Rocephin. ID team on the case He is currently on IV Lasix 40 mg 3 times daily and Eliquis. Also digoxin and metoprolol 100 mg 3 times daily added 12/26 Patient feels better Patient asking about when he can discharge home He denies chest pain or dyspnea Bladder scan showed postvoid residual less than 300, no need for Lozano catheter for now. Patient already on Flomax we will continue monitoring. Patient currently on room air denies any other new complaint Objective - Vital Signs Vital signs: Vital Signs Temp 97.7 F 12/26/24 16:00 Pulse 87 12/26/24 16:00 Resp 16 12/26/24 16:00 BP 133/77 12/26/24 16:00 Pulse Ox 94 L 12/26/24 16:00 FiO2 30 12/22/24 09:58 Intake & Output 12/26/24 12/26/24 12/27/24 06:59 18:59 06:59 Intake Total 480 Output Total 825 Balance -825 480 Weight 64.6 kg Intake: Oral 480 Output: Urine 825 Other: Voiding Method Indwelling Catheter Indwelling Catheter # Voids 1 # Bowel Movements 0 ABP, PAP, CO, CI - Last Documented Arterial Blood Pressure 138/75 - Exam -GENERAL: The patient is awake, more oriented, not in distress HEENT: Pupils are round and equally reacting to light. EOMI. No scleral icterus. No conjunctival pallor. Normocephalic, atraumatic. No pharyngeal erythema. No thyromegaly. CARDIOVASCULAR: S1 and S2 present. No murmurs, rubs, or gallops. PULMONARY: Chest is clear to auscultation, no wheezing , no crackles. ABDOMEN: Soft, nontender, nondistended, normoactive bowel sounds. No palpable organomegaly. MUSCULOSKELETAL: No joint swelling or deformity. EXTREMITIES: No cyanosis, clubbing, or pedal edema. NEUROLOGICAL: Gross neurological examination did not reveal any focal deficits. SKIN: No rashes. no petechiae. - Labs CBC & Chem 7: 12/24/24 05:15 12/24/24 09:10 Assessment and Plan Assessment: Cardiogenic shock, improved Bradycardia, resolved Acute hypoxic respiratory failure, currently on room air Acute on chronic systolic CHF, new echo done shows EF of 5 to 10% A-fib with RVR, rate controlled currently UTI, finished antibiotics Hyperkalemia, resolved History of hyperlipidemia History of hypertension History of chronic systolic CHF with EF of 20-25%, repeat echo shows EF of 5 to 10% Anxiety Depression Plan: Murali currently kept off dobutamine drip since 2 days ago Continue with IV Lasix 40 mg Patient is currently on Eliquis Patient finish his IV antibiotic. Several consultants on the case including ID team, cardiology and pulmonary GI prophylaxis: Pepcid DVT prophylaxis Eliquis Prognosis remains guarded
[2024-12-26 20:04] LABS: African American GFR (CKD) 74 (>60 ml/min/1.73 sqM); Anion Gap 8 mmol/L; Blood Urea Nitrogen 26 mg/dL (9-20); Calcium 9.2 mg/dL (8.4-10.2); Carbon Dioxide 35 mmol/L (22-30); Chloride 95 mmol/L (98-107); Glucose 144 mg/dL (74-99); Non-African American GFR(CKD) 64 (>60 ml/min/1.73 sqM); Sodium 138 mmol/L (137-145)
[2024-12-26 22:06] VITALS: RESP 18
[2024-12-27 07:46] LABS: African American GFR (CKD) 82 (>60 ml/min/1.73 sqM); Anion Gap 5 mmol/L; Blood Urea Nitrogen 23 mg/dL (9-20); Calcium 9.1 mg/dL (8.4-10.2); Carbon Dioxide 34 mmol/L (22-30); Chloride 98 mmol/L (98-107); Glucose 118 mg/dL (74-99); Non-African American GFR(CKD) 71 (>60 ml/min/1.73 sqM); Potassium 3.6 mmol/L (3.5-5.1); Sodium 137 mmol/L (137-145)
[2024-12-27 10:12] VITALS: TEMP 98
--- NOTE | 2024-12-27 11:59 | P.PN ---
Subjective Progress Note Date: 12/27/24 This is a 74-year-old gentleman who is known to our service from before with a past medical history significant for nonischemic cardiomyopathy and excessive alcohol use as well as paroxysmal atrial fibrillation and multiple comorbid conditions who was admitted to the hospital this time with heart failure. He was seen by our service and subsequently we signed off on the patient. We requested to see the patient for assessment before discharge. Overall he seems to be stable and seems to be euvolemic from the cardiovascular standpoint of view. He is on IV Lasix. He is not on any CHARLES inhibitor or ARB or Entresto. Ongoing to add losartan at 25 mg p.o. daily to the current medical regimen. The physical examination is remarkable for regular rhythm with diminished breathing sounds bilaterally and no edema was noted in the lower extremities Assessment Nonischemic cardiomyopathy Paroxysmal atrial fibrillation History of excessive alcohol use Multiple comorbid conditions Plan Continue the current medical regimen Add losartan to the current medical regimen Possible discharge in next 24 to 48 hours Objective - Vital Signs Vital signs: Vital Signs Temp 98.0 F 12/27/24 08:00 Pulse 82 12/27/24 08:00 Resp 18 12/27/24 08:00 BP 143/82 12/27/24 08:00 Pulse Ox 93 L 12/27/24 08:00 FiO2 30 12/22/24 09:58 Intake & Output 12/26/24 12/27/24 12/27/24 18:59 06:59 18:59 Intake Total 480 240 Output Total 1300 Balance 480 -1300 240 Weight 65.3 kg Intake: Oral 480 240 Output: Urine 1300 Other: Voiding Method Indwelling Catheter Indwelling Catheter # Bowel Movements 0 ABP, PAP, CO, CI - Last Documented Arterial Blood Pressure 138/75 - Labs CBC & Chem 7: 12/24/24 05:15 12/27/24 06:27 Labs: Abnormal Lab Results - Last 24 Hours (Table) 12/26/24 12/27/24 Range/Units 19:33 06:27 Chloride 95 L (98-107) mmol/L Carbon Dioxide 35 H 34 H (22-30) mmol/L BUN 26 H 23 H (9-20) mg/dL Glucose 144 H 118 H (74-99) mg/dL
[2024-12-27 13:16] VITALS: BP 113/62; PULSE 85
[2024-12-27 13:28] VITALS: BMI 22.5
--- NOTE | 2024-12-27 21:42 | PN ---
PROGRESS NOTE DATE OF SERVICE: 12/27/2024 SUBJECTIVE: This is a 74-year-old male, who is seen today in room 379. The patient is resting comfortably in a chair next to his hospital bed. He is on room air. No IV fluids. He denies any shortness of breath, cough, wheezing, chest tightness, or phlegm production. He also denies any chest pain or pressure. He denies palpitations, and heart fluttering. PHYSICAL EXAMINATION: VITAL SIGNS: Current vital signs are reviewed. His temperature is 97.6, heart rate 85, respiratory rate 18, blood pressure 113/62 with mean of 79. Room air saturation 97%. He appears in no respiratory distress. HEENT EXAMINATION: Grossly unremarkable. NECK: Supple. Full range of motion. No adenopathy. Neck veins are flat. CARDIOVASCULAR EXAMINATION: Reveals a regular rhythm and rate. S1, S2 normal. LUNGS: Lungs are clear. Breath sounds equal. No wheezes, rhonchi, or crackles. ABDOMEN: Soft. Bowel sounds are heard. EXTREMITIES: Intact. No cyanosis, clubbing, or edema. SKIN: Without rash. NEUROLOGIC EXAMINATION: Brief, but nonfocal. LABORATORY DATA: Reviewed. Sodium 137, potassium 3.6, chloride 98, CO2 34, anion gap 5. BUN 23, creatinine 1.04. Glucose is 118. Calcium is 9.1. Cultures were all negative. No recent chest x-ray. ASSESSMENT: 1. Acute hypoxemic respiratory failure, secondary to cardiogenic shock and severe left ventricular dysfunction; the patient was extubated on December 22, 2024. 2. Acute on chronic systolic congestive heart failure. 3. Ischemic cardiomyopathy with an ejection fraction of 5% to 10% and normal cardiac catheterization. 4. Chronic atrial fibrillation. 5. Moderate mitral regurgitation. 6. History of substance abuse/cocaine. 7. History of alcoholism. 8. Cardiomyopathy. 9. Benign essential hypertension. 10.Acute urinary tract infection. 11.Hyperlipidemia. 12.Benign prostatic hyperplasia. PLAN: The patient is seen today in room #379. He is sitting in a chair next to the hospital bed. He was talking on the phone. He was in no distress. He denied any shortness of breath, cough, wheezing, chest tightness, chest discomfort, phlegm production, or any other symptoms for that matter. The patient is being evaluated for possible discharge. Labs, x-rays, and medications are reviewed. Prognosis is guarded. MMODL / IJN: [id number] /
--- NOTE | 2024-12-27 21:45 | P.DS ---
Providers Date of admission: 12/15/24 18:42 Attending physician: Chuyita Escoto Consults: 12/15/24 18:40 Consult Physician Routine Consulting Provider: Marcelo Coleman Consult Reason/Comments: afib rvr Do you want consulting provider notified?: Yes 12/16/24 13:45 Consult Physician Routine Consulting Provider: Laura Suresh Consult Reason/Comments: uti Do you want consulting provider notified?: Yes 12/16/24 16:14 Consult Physician Routine Consulting Provider: Ricky German Consult Reason/Comments: ICU management Do you want consulting provider notified?: Yes 12/27/24 10:13 Consult Physician Urgent Consulting Provider: Aleks Maria Consult Reason/Comments: chf, reevaluation Do you want consulting provider notified?: Yes Primary care physician: [facility] Course: Diagnoses: Cardiogenic shock, improved Bradycardia, resolved Acute hypoxic respiratory failure, currently on room air Acute on chronic systolic CHF, new echo done shows EF of 5 to 10%, currently euvolemic A-fib with RVR, rate controlled currently UTI, finished antibiotics Hyperkalemia, resolved History of hyperlipidemia History of hypertension History of chronic systolic CHF with EF of 20-25%, repeat echo shows EF of 5 to 10% Anxiety Depression Hospital course: 74-year-old gentleman past medical history significant for hypertension, hyperlipidemia, systolic CHF, paroxysmal A-fib, who presents the ER because of chest pain and shortness of breath. Patient was admitted in the hospital in November at which time patient was found to have cardiomyopathy and had cardiac cath done which showed normal coronaries. Patient was discharged to rehab facility from where he was discharged home a couple of days back. Patient had to be admitted to the ICU on presentation and placed on mechanical ventilation. He was treated with antibiotics and IV Lasix and blood thinner, has been followed closely by pulmonary cardiology team, patient showed interval improvement slowly and gradually, he got extubated and symptoms improved and he was transferred to the general medical floor at [facility]cardiac unit where he has been there for the last few days. He clinically stable, fully awake and oriented, mentation intact. No chest pain no dyspnea. Has full normal power, get up and go test is normal. Walking normally. Has good appetite. Not getting IV fluid. Does not need any supplemental oxygen. Patient has been eager to go home over the last few days including today. Yesterday he agrees to wait till being evaluated by visitor services information assistant. Dr. Mcgraw saw the patient today and cleared her for discharge after starting him on small dose of losartan at 12.5 mg. Patient was cleared for discharge by all consulting including cardiology and pulmonary service. I checked with the pharmacy his Eliquis co-pay is $0 has been covered by his insurance provider of Medicaid. I checked with the pharmacy all prescription went through. Problems and management plan were discussed with the patient and he verbalized u nderstanding and acceptance Patient was found stable and can be discharged home in guarded prognosis however he needs follow-up as an outpatient. Patient was instructed to follow up with PCP Dr. Damon within one week and patient agrees Patient was instructed to follow-up with visitor services information assistant Dr. Mcgraw in 2 weeks and associate director regulatory affairs Dr. Bhandari in 2 weeks and he agrees Physical exam Gen: patient is a AAOx3, no distress CVS: S1-S2, RRR, no murmur Lungs: B/L CTA, no wheezing Abdomen: soft, no distention, no tenderness, positive bowel sounds Extremity: no leg edema or induration Time spent more than 35 minutes Patient Condition at Discharge: Serious Plan - Discharge Summary Discharge Rx Participant: No New Discharge Prescriptions: New Digoxin [Lanoxin] 125 mcg PO DAILY #30 tab Losartan [Cozaar] 12.5 mg PO DAILY #15 tab Apixaban [Eliquis] 5 mg PO BID 30 Days #60 tab Furosemide [Lasix] 40 mg PO BID #60 tablet Metoprolol Tartrate [Lopressor] 100 mg PO TID #90 tablet Continue Albuterol Sulfate [Albuterol Sulfate Hfa] 2 puff PO RT-Q6H PRN PRN Reason: Shortness Of Breath Gabapentin [Neurontin] 800 mg PO TID Acetaminophen Tab [Tylenol] 650 mg PO Q6H PRN PRN Reason: Pain Tamsulosin [Flomax] 0.4 mg PO DAILY Atorvastatin [Lipitor] 40 mg PO HS #30 tab Escitalopram Oxalate [Lexapro] 10 mg PO DAILY Cyclobenzaprine [Flexeril] 10 mg PO DAILY PRN PRN Reason: Muscle Spasm traZODone HCL 150 mg PO HS Dapagliflozin Propanediol [Farxiga] 10 mg PO DAILY tab Nitroglycerin Sl Tabs [Nitrostat] 0.4 mg SUBLINGUAL Q5M PRN tab PRN Reason: Chest Pain Thiamine [Vitamin B-1] 100 mg PO DAILY tab Cholecalciferol [Vitamin D3 (25 Mcg = 1000 Iu)] 50 mcg PO DAILY Multivitamins, Thera [Multivitamin (formulary)] 1 tab PO DAILY Folic Acid 1 mg PO DAILY Discontinued Torsemide [Demadex] 20 mg PO DAILY tab Metoprolol Tartrate [Lopressor] 150 mg PO BID tab Midodrine [ProAmatine] 5 mg PO AC-BID tab lisinopriL [Prinivil] 20 mg PO DIRECTED Sacubitril/Valsartan [Entresto 24 mg-26 mg Tablet] 1 tab PO BID Discharge Medication List Albuterol Sulfate [Albuterol Sulfate Hfa] 2 puff PO RT-Q6H PRN 11/08/24 [History] Cyclobenzaprine [Flexeril] 10 mg PO DAILY PRN 11/08/24 [History] Escitalopram Oxalate [Lexapro] 10 mg PO DAILY 11/08/24 [History] Gabapentin [Neurontin] 800 mg PO TID 11/08/24 [History] traZODone HCL 150 mg PO HS 11/08/24 [History] Dapagliflozin Propanediol [Farxiga] 10 mg PO DAILY tab 11/19/24 [Rx] Nitroglycerin Sl Tabs [Nitrostat] 0.4 mg SUBLINGUAL Q5M PRN tab 11/19/24 [Rx] Thiamine [Vitamin B-1] 100 mg PO DAILY tab 11/19/24 [Rx] Acetaminophen Tab [Tylenol] 650 mg PO Q6H PRN 12/15/24 [History] Cholecalciferol [Vitamin D3 (25 Mcg = 1000 Iu)] 50 mcg PO DAILY 12/15/24 [History] Folic Acid 1 mg PO DAILY 12/15/24 [History] Multivitamins, Thera [Multivitamin (formulary)] 1 tab PO DAILY 12/15/24 [History] Tamsulosin [Flomax] 0.4 mg PO DAILY 12/15/24 [History] Apixaban [Eliquis] 5 mg PO BID 30 Days #60 tab 12/27/24 [Rx] Atorvastatin [Lipitor] 40 mg PO HS #30 tab 12/27/24 [Rx] Digoxin [Lanoxin] 125 mcg PO DAILY #30 tab 12/27/24 [Rx] Furosemide [Lasix] 40 mg PO BID #60 tablet 12/27/24 [Rx] Losartan [Cozaar] 12.5 mg PO DAILY #15 tab 12/27/24 [Rx] Metoprolol Tartrate [Lopressor] 100 mg PO TID #90 tablet 12/27/24 [Rx] Follow up Appointment(s)/Referral(s): Aleks Maria MD [STAFF PHYSICIAN] - 2 Weeks [facility], [NON-STAFF] - Fara Fitzpatrick MD [Primary Care Provider] - 1-2 days Ricky German MD [STAFF PHYSICIAN] - 2 Weeks Activity/Diet/Wound Care/Special Instructions: heart healthy diet activity is restricted till you see your doctor Discharge Disposition: HOME SELF-CARE
[2024-12-28] MEDS ORDERED: LOSARTAN 25 MG TAB PO SCH (09:00)
--- NOTE | 2024-12-28 13:46 | P.PN ---
Subjective Progress Note Date: 12/27/24 Principal diagnosis: Reason for follow-up is a UTI Patient is a 74-year-old male with a past medical history significant for COPD hypertension prostate disorder anxiety depression history of heavy alcohol abuse presenting to the hospital for evaluation of chest pain and shortness of breath, patient did have significant breath arrhythmia requiring transvenous pacer intubation admission to ICU also have a positive UA concerning for UTI prompting this consultation. On today's evaluation that is 12/27/2024, patient has been afebrile, patient is breathing comfortably and is currently on room air, patient denies having any significant cough no chest pain, patient denies nausea vomiting or diarrhea and no abdominal pain. Patient did have creatinine 1.04 no CBC was done today Objective - Vital Signs Vital signs: Vital Signs Temp 98.0 F 12/27/24 08:00 Pulse 85 12/27/24 12:00 Resp 18 12/27/24 12:00 BP 113/62 12/27/24 12:00 Pulse Ox 97 12/27/24 12:00 FiO2 30 12/22/24 09:58 Intake & Output 12/26/24 12/27/24 12/27/24 18:59 06:59 18:59 Intake Total 480 240 Output Total 1300 Balance 480 -1300 240 Weight 65.3 kg 65.3 kg Intake: Oral 480 240 Output: Urine 1300 Other: Voiding Method Indwelling Catheter Indwelling Catheter Indwelling Catheter # Bowel Movements 0 ABP, PAP, CO, CI - Last Documented Arterial Blood Pressure 138/75 - Exam GENERAL DESCRIPTION: An elderly male lying in bed in no distress RESPIRATORY SYSTEM: Unlabored breathing , decreased breath sounds at bases HEART: S1 S2 regular rate and rhythm , ABDOMEN: Soft , no tenderness EXTREMITIES: No edema feet - Labs CBC & Chem 7: 12/24/24 05:15 12/27/24 06:27 Labs: Abnormal Lab Results - Last 24 Hours (Table) 12/26/24 12/27/24 Range/Units 19:33 06:27 Chloride 95 L (98-107) mmol/L Carbon Dioxide 35 H 34 H (22-30) mmol/L BUN 26 H 23 H (9-20) mg/dL Glucose 144 H 118 H (74-99) mg/dL Assessment and Plan (1) UTI (urinary tract infection) Status: Acute Code(s): N39.0 - URINARY TRACT INFECTION, SITE NOT SPECIFIED SNOMED Code(s): 79311988 (2) Leukocytosis Status: Acute Code(s): D72.829 - ELEVATED WHITE BLOOD CELL COUNT, UNSPECIFIED SNOMED Code(s): 557983986 Plan: 1patient presented to hospital with increasing shortness of breath which is more likely underlying cardiac etiology as patient noticed to be in A-fib with RVR subsequent getting to bradycardia arrhythmia for the patient being transfer red to ICU as per discussion with admitting physician 2-patient also have a significantly positive UA some mental status changes history of prostate disorder with prostatomegaly seen on CT component of UTI not entirely excluded likely due to gram-negative pathogen 3-patient is afebrile and white count has normalized patient has received adequate antibiotic for underlying UTI and did well over the last few days without antibiotic therapy hence no need for antibiotic on discharge Dictation was produced using [employer] dictation software. please excuse any grammatical, word or spelling errors. Time with Patient: Less than 30
== END 2024-12-27 14:36 | disposition home health service (06) | DRG 260 ==
LOC: EC 16:20 → 3SCARD 18:41 → INTOOBSV 18:41 → OBSVTOIN 18:42 → 3SCARD 20:19 → 2SICU 12-16 16:56 → 3SCARD 12-24 13:33
PROVIDERS: ADMIT Hospitalist; ATTEND Hospitalist
PROC: 5A1223Z Performance of Cardiac Pacing, Continuous (ICD-10-PCS; 2024-12-16)
PROC: 04HY32Z Insertion of Monitoring Device into Lower Artery, Percutaneous Approach (ICD-10-PCS; 2024-12-16)
PROC: 4A133B1 Monitoring of Arterial Pressure, Peripheral, Percutaneous Approach (ICD-10-PCS; 2024-12-16)
PROC: 4A133J1 Monitoring of Arterial Pulse, Peripheral, Percutaneous Approach (ICD-10-PCS; 2024-12-16)
PROC: 02HV33Z Insertion of Infusion Device into Superior Vena Cava, Percutaneous Approach (ICD-10-PCS; 2024-12-16)
PROC: 0BH17EZ Insertion of Endotracheal Airway into Trachea, Via Natural or Artificial Opening (ICD-10-PCS; 2024-12-16)
PROC: 5A1955Z Respiratory Ventilation, Greater than 96 Consecutive Hours (ICD-10-PCS; 2024-12-16)
PROC: 3E033XZ Introduction of Vasopressor into Peripheral Vein, Percutaneous Approach (ICD-10-PCS; 2024-12-16)
PROC: 02HK3JZ Insertion of Pacemaker Lead into Right Ventricle, Percutaneous Approach (ICD-10-PCS; principal; 2024-12-16 16:53)
PROC: 3E033RZ Introduction of Antiarrhythmic into Peripheral Vein, Percutaneous Approach (ICD-10-PCS; 2024-12-21)
DX: I48.0 Paroxysmal atrial fibrillation (principal); I50.23 Acute on chronic systolic (congestive) heart failure; R57.0 Cardiogenic shock; J96.01 Acute respiratory failure with hypoxia; Z66 Do not resuscitate; I42.0 Dilated cardiomyopathy; I11.0 Hypertensive heart disease with heart failure; F10.20 Alcohol dependence, uncomplicated; F14.11 Cocaine abuse, in remission; F32.A Depression, unspecified; I34.0 Nonrheumatic mitral (valve) insufficiency; N39.0 Urinary tract infection, site not specified; E87.20 Acidosis, unspecified; N17.9 Acute kidney failure, unspecified; R00.1 Bradycardia, unspecified; E87.5 Hyperkalemia; E78.5 Hyperlipidemia, unspecified; N40.0 Benign prostatic hyperplasia without lower urinary tract symptoms; F41.9 Anxiety disorder, unspecified; Z79.899 Other long term (current) drug therapy; Z88.6 Allergy status to analgesic agent; Z87.891 Personal history of nicotine dependence
CPT/HCPCS: 33210; 36415; 36600; 51702; 71045; 71046; 74176; 74230; 80048; 80053; 80306; 81001; 82805; 83735; 83880; 84132; 84443; 84484; 85025; 85027; 85610; 85730; 93005; 93308; 94002; 94003; 94640; 96361; 96365; 96366; 96367; 96368; 96375; 96376; 99291

== ENCOUNTER 2025-01-14 18:17 | Observation (INO) | payer MEDICARE, OTHER ==
[2025-01-14 18:58] LABS: Basophils # (A) 0.04 10*3/uL (0.00-0.10); Basophils % (A) 0.5 %; Eosinophils # (A) 0.21 10*3/uL (0.04-0.35); Eosinophils % (A) 2.5 %; HCT 37.7 % (39.6-50.0); HGB 12.9 g/dL (13.0-17.0); Lymphocytes # (A) 2.02 10*3/uL (0.90-5.00); Lymphocytes % (A) 24.4 %; MCH 31.1 pg (27.0-32.0); MCHC 34.2 g/dL (32.0-37.0); MCV 90.8 fL (80.0-97.0); Mean Platelet Volume 9.3 fL (9.5-12.2); Monocytes # (A) 0.68 10*3/uL (0.20-1.00); Monocytes % (A) 8.2 %; Neutrophils # (A) 5.31 10*3/uL (1.80-7.70); Platelet Count 318 10*3/uL (140-440); RBC 4.15 10*6/uL (4.40-5.60); RDW 14.9 % (11.5-14.5); WBC 8.29 10*3/uL (4.50-10.00)
[2025-01-14 19:07] LABS: INR 1.1 (<1.2); Partial Thromboplastin Time 25.3 sec (22.0-30.0); Prothrombin Time 12.2 sec (10.0-12.5)
[2025-01-14 19:09] LABS: ALT 19 U/L (4-49); AST 30 U/L (17-59); African American GFR (CKD) >90 (>60 ml/min/1.73 sqM); Albumin 4.4 g/dL (3.5-5.0); Alkaline Phosphatase 111 U/L (38-126); Anion Gap 14 mmol/L; Blood Urea Nitrogen 9 mg/dL (9-20); Calcium 9.9 mg/dL (8.4-10.2); Carbon Dioxide 23 mmol/L (22-30); Chloride 99 mmol/L (98-107); Digoxin 0.9 ng/mL; Glucose 93 mg/dL (74-99); Magnesium 1.9 mg/dL (1.6-2.3); Non-African American GFR(CKD) >90 (>60 ml/min/1.73 sqM); Sodium 136 mmol/L (137-145); Total Bilirubin 0.7 mg/dL (0.2-1.3); Total Protein 8.1 g/dL (6.3-8.2)
--- NOTE | 2025-01-14 19:56 | XR ---
EXAMINATION TYPE: XR chest 2V DATE OF EXAM: 01/14/2025 7:32 PM COMPARISON: 12/23/2024 CLINICAL INDICATION: Male, 74 years old with history of dysrhythmia, TECHNIQUE: XR chest 2V view(s) obtained. FINDINGS: The heart size is normal. The pulmonary vasculature is normal. The lungs are clear. Previous bibasilar infiltrates have resolved. PICC line has been removed. IMPRESSION: 1. No acute pulmonary process. [facility], , 01/14/2025 7:54 PM
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
[2025-01-14] MEDS ORDERED: NALOXONE 0.4 MG/ML 1 ML VIAL IV PRN (21:16)
[2025-01-14] MEDS: METOPROLOL TARTRATE 5 MG/5 ML VIAL IVP STA (21:25)
[2025-01-14] MEDS: ACETAMINOPHEN TAB 500 MG TAB PO STA (22:16)
[2025-01-14] MEDS ORDERED: LOSARTAN 25 MG TAB PO SCH (23:15)
[2025-01-14] MEDS: APIXABAN 5 MG TAB PO SCH (23:32)
[2025-01-14] MEDS: traZODone HCL 50 MG TAB PO SCH (23:32)
[2025-01-14] MEDS: METOPROLOL TARTRATE 50 MG TAB PO STA (23:32)
[2025-01-15] MEDS: METOPROLOL TARTRATE 50 MG TAB PO SCH (00:30)
[2025-01-15 04:43] LABS: Basophils # (A) 0.04 10*3/uL (0.00-0.10); Basophils % (A) 0.5 %; Eosinophils # (A) 0.24 10*3/uL (0.04-0.35); Eosinophils % (A) 2.9 %; HCT 39.2 % (39.6-50.0); HGB 13.3 g/dL (13.0-17.0); Lymphocytes # (A) 1.86 10*3/uL (0.90-5.00); Lymphocytes % (A) 22.8 %; MCH 31.4 pg (27.0-32.0); MCHC 33.9 g/dL (32.0-37.0); MCV 92.7 fL (80.0-97.0); Mean Platelet Volume 9.3 fL (9.5-12.2); Monocytes # (A) 0.65 10*3/uL (0.20-1.00); Neutrophils # (A) 5.32 10*3/uL (1.80-7.70); Neutrophils % (A) 65.3 %; Platelet Count 318 10*3/uL (140-440); RBC 4.23 10*6/uL (4.40-5.60); RDW 15.2 % (11.5-14.5); WBC 8.15 10*3/uL (4.50-10.00)
[2025-01-15 05:05] LABS: African American GFR (CKD) 84 (>60 ml/min/1.73 sqM); Anion Gap 8 mmol/L; Blood Urea Nitrogen 12 mg/dL (9-20); Calcium 9.8 mg/dL (8.4-10.2); Carbon Dioxide 30 mmol/L (22-30); Chloride 99 mmol/L (98-107); Glucose 107 mg/dL (74-99); Non-African American GFR(CKD) 73 (>60 ml/min/1.73 sqM); Potassium 4.6 mmol/L (3.5-5.1); Sodium 137 mmol/L (137-145)
[2025-01-15 07:34] VITALS: RESP 16
[2025-01-15] MEDS: TAMSULOSIN 0.4 MG CAP.ER.24H PO SCH (09:03)
[2025-01-15] MEDS: ACETAMINOPHEN TAB 325 MG TAB PO PRN (12:26)
[2025-01-15] MEDS: DAPAGLIFLOZIN PROPANEDIOL 10 MG TABLET PO SCH (12:26)
[2025-01-15] MEDS: DIGOXIN 125 MCG TAB PO SCH (12:26)
[2025-01-15] MEDS: FUROSEMIDE 40 MG TAB PO SCH (12:26)
[2025-01-15] MEDS: SACUBITRIL/VALSARTAN 24 MG-26 MG TABLET PO SCH (12:26)
--- NOTE | 2025-01-15 12:41 | P.DS ---
Providers Date of admission: 01/14/25 21:16 Attending physician: Chuyita Escoto Consults: 01/14/25 21:16 Consult Physician Urgent Consulting Provider: [facility] Reason/Comments: afib with rvr Do you want consulting provider notified?: Yes Primary care physician: [facility] Course: Patient presented to cardiology office and found to be in atrial fibrillation w ith rapid ventricular rate. Patient ran out of his medications few days ago and stopped taking his medications since then. Patient was given IV metoprolol and subsequently switched to oral metoprolol. Patient is sinus rhythm at this time patient has congestive heart failure with EF of around 5 to 10%. Patient takes losartan and Aldactone at home which were discontinued and patient was started on Entresto here. Patient is otherwise clinically doing well no symptoms at this time. He is evaluated by cardiology. Patient will be discharged later today if cleared by cardiology REVIEW OF SYSTEMS: All other systems are negative except those mentioned in the HPI PHYSICAL EXAMINATION: GENERAL: The patient is alert and oriented x3, not in any acute distress. Well developed, well nourished. HEENT: Pupils are round and equally reacting to light. EOMI. No scleral icterus. No conjunctival pallor. Normocephalic, atraumatic. No pharyngeal erythema. No thyromegaly. CARDIOVASCULAR: S1 and S2 present. No murmurs, rubs, or gallops. PULMONARY: Chest is clear to auscultation, no wheezing or crackles. ABDOMEN: Soft, nontender, nondistended, normoactive bowel sounds. No palpable organomegaly. MUSCULOSKELETAL: No joint swelling or deformity. EXTREMITIES: No cyanosis, clubbing, or pedal edema. NEUROLOGICAL: Gross neurological examination did not reveal any focal deficits. SKIN: No rashes. Assessment and plan -Atrial fibrillation with rapid unclear rate due to noncompliance with medications patient was given prescriptions and will be discharged today. Patient was resumed on Eliquis - Congestive heart failure chronic systolic function without any acute exacerbation EF of around 5 to 10% patient was started on Entresto and discontinued losartan and Aldactone will be discharged today. Patient is to continue his beta-margaux, Farxiga - Benign prostatic hypertrophy - Hyperlipidemia - Hypertension - COPD without any acute exacerbation - Depression Patient was resumed on the medications he is supposed to be on and prescriptions for all his medications were provided and will be discharged today Patient Condition at Discharge: Stable Plan - Discharge Summary New Discharge Prescriptions: New Sacubitril/Valsartan [Entresto 24 mg-26 mg Tablet] 1 each PO BID #60 tab Continue Gabapentin [Neurontin] 800 mg PO TID Acetaminophen Tab [Tylenol] 650 mg PO Q6H PRN PRN Reason: Pain Fluticasone Nasal [place] [Flonase Nasal [place]] 2 spray EA NOSTRIL BID PRN PRN Reason: Allergy Symptoms Apixaban [Eliquis] 5 mg PO BID 30 Days #60 tab Dapagliflozin Propanediol [Farxiga] 10 mg PO DAILY #30 tab Digoxin [Lanoxin] 125 mcg PO DAILY #30 tab Furosemide [Lasix] 40 mg PO BID #60 tablet Escitalopram Oxalate [Lexapro] 10 mg PO DAILY #30 tab Atorvastatin [Lipitor] 40 mg PO HS #30 tab Nitroglycerin Sl Tabs [Nitrostat] 0.4 mg SUBLINGUAL Q5M PRN #30 tab PRN Reason: Chest Pain Thiamine [Vitamin B-1] 100 mg PO DAILY tab Multivitamins, Thera [Multivitamin (formulary)] 1 tab PO DAILY Folic Acid 1 mg PO DAILY Albuterol Sulfate [Albuterol Sulfate Hfa] 2 puff INHALATION RT-Q6H PRN #1 each PRN Reason: Shortness Of Breath Tamsulosin [Flomax] 0.4 mg PO DAILY #30 cap Metoprolol Tartrate [Lopressor] 100 mg PO TID #90 tab traZODone HCL 150 mg PO HS #30 tab Cholecalciferol [Vitamin D3 (25 Mcg = 1000 Iu)] 50 mcg PO DAILY #30 tab Discontinued Amoxic-Pot Clav 875-125Mg [Augmentin 875-125] 1 tab PO Q12HR Spironolactone [Aldactone] 12.5 mg PO DAILY Cyclobenzaprine [Flexeril] 10 mg PO DAILY PRN PRN Reason: Muscle Spasm Losartan [Cozaar] 12.5 mg PO DAILY #15 tab Discharge Medication List Gabapentin [Neurontin] 800 mg PO TID 11/08/24 [History] Thiamine [Vitamin B-1] 100 mg PO DAILY tab 11/19/24 [Rx] Acetaminophen Tab [Tylenol] 650 mg PO Q6H PRN 12/15/24 [History] Folic Acid 1 mg PO DAILY 12/15/24 [History] Multivitamins, Thera [Multivitamin (formulary)] 1 tab PO DAILY 12/15/24 [History] Albuterol Sulfate [Albuterol Sulfate Hfa] 2 puff INHALATION RT-Q6H PRN #1 each 01/15/25 [Rx] Apixaban [Eliquis] 5 mg PO BID 30 Days #60 tab 01/15/25 [Rx] Atorvastatin [Lipitor] 40 mg PO HS #30 tab 01/15/25 [Rx] Cholecalciferol [Vitamin D3 (25 Mcg = 1000 Iu)] 50 mcg PO DAILY #30 tab 01/15/25 [Rx] Dapagliflozin Propanediol [Farxiga] 10 mg PO DAILY #30 tab 01/15/25 [Rx] Digoxin [Lanoxin] 125 mcg PO DAILY #30 tab 01/15/25 [Rx] Escitalopram Oxalate [Lexapro] 10 mg PO DAILY #30 tab 01/15/25 [Rx] Fluticasone Nasal [place] [Flonase Nasal [place]] 2 spray EA NOSTRIL BID PRN 01/15/25 [History] Furosemide [Lasix] 40 mg PO BID #60 tablet 01/15/25 [Rx] Metoprolol Tartrate [Lopressor] 100 mg PO TID #90 tab 01/15/25 [Rx] Nitroglycerin Sl Tabs [Nitrostat] 0.4 mg SUBLINGUAL Q5M PRN #30 tab 01/15/25 [Rx] Sacubitril/Valsartan [Entresto 24 mg-26 mg Tablet] 1 each PO BID #60 tab 01/15/25 [Rx] Tamsulosin [Flomax] 0.4 mg PO DAILY #30 cap 01/15/25 [Rx] traZODone HCL 150 mg PO HS #30 tab 01/15/25 [Rx] Follow up Appointment(s)/Referral(s): Fara Fitzpatrick MD [Primary Care Provider] - 3 Days Anthony Julio MD [STAFF PHYSICIAN] - 1 Week Discharge Disposition: HOME SELF-CARE
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
[2025-01-15 13:52] VITALS: BP 135/83; PULSE 57; TEMP 98.6
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
[2025-01-15] MEDS ORDERED: ATORVASTATIN 40 MG TAB PO SCH (21:00)
== END 2025-01-15 14:58 | disposition home or self-care (01) ==
LOC: EC 18:17 → 6NMEDSUR 21:16
PROVIDERS: ADMIT Hospitalist; ATTEND Hospitalist
DX: I48.91 Unspecified atrial fibrillation (principal); I11.0 Hypertensive heart disease with heart failure; I50.22 Chronic systolic (congestive) heart failure; T50.916A Underdosing of multiple unspecified drugs, medicaments and biological substances, initial encounter; Z91.128 Patient's intentional underdosing of medication regimen for other reason; I42.8 Other cardiomyopathies; J44.9 Chronic obstructive pulmonary disease, unspecified; N40.0 Benign prostatic hyperplasia without lower urinary tract symptoms; E78.5 Hyperlipidemia, unspecified; F32.A Depression, unspecified; Z79.01 Long term (current) use of anticoagulants; Z79.899 Other long term (current) drug therapy; Z79.84 Long term (current) use of oral hypoglycemic drugs; Z88.6 Allergy status to analgesic agent; Z87.891 Personal history of nicotine dependence
CPT/HCPCS: 96374; 99285; 36415; 93005; 80053; 80048; 84443; 80162; 83735; 84484 ×2; 85025 ×2; 85610; 85730; 71046; G0378 ×2

== ENCOUNTER → 2025-02-16 | Outpatient (CLI) | payer MEDICARE, OTHER ==
--- NOTE | 2025-02-18 10:23 | MR ---
EXAMINATION TYPE: MR abdomen wo/w con DATE OF EXAM: 02/16/2025 5:20 PM COMPARISON: MRI 11/20/2019 CLINICAL INDICATION: Male, 74 years old with history of N28.1 RENAL CYST; PHH, Renal cyst. TECHNIQUE: Multiplanar multi-sequence imaging was performed without contrast. Post contrast imaging was performed. Post IV contrast subtraction images were also submitted for review. IV Contrast: 7 mL Gadobutrol FINDINGS: LOWER CHEST: The heart is mildly enlarged for size. ABDOMEN Liver: No evidence for cirrhosis. Signal dropout on chemical shift out of phase imaging. Few scattere d simple appearing cysts. Gallbladder and Bile ducts: No evidence for ductal dilation, or biliary stricture or evidence of chol edocholithiasis. The gallbladder is within normal limits. Pancreas: No ductal dilation. No evidence for solid mass. Spleen: Normal for size. Adrenal glands: Unremarkable. Kidneys: No suspicious right solid renal neoplasms. No right hydronephrosis. Simple appearing Bosniak type I right renal cyst. Measuring 9 mm and high T2 low T1 signal.. Left kidney cyst seen on prior now appears to have more solid component with enhancement, however thi s does measures similarly at 16 mm. Stomach and Bowel: No evidence for bowel wall thickening or evidence for obstruction. Retroperitoneum/Peritoneum: No evidence of pneumoperitoneum or free fluid. Vasculature: No aortic aneurysm. Musculoskeletal: The osseous structures appear intact. Lymph Nodes: No gross evidence for lymphadenopathy. Abdominal wall: Unremarkable. IMPRESSION: 1. Left renal cyst now has more solid enhancing component compared to prior. However the size remain s similar. Findings are more concerning for renal cell carcinoma on today's exam. Continued surveilla nce recommended at a minimum. 2. Right renal Bosniak type I cyst. 3. Hepatic steatosis. 4. [facility], , 02/18/2025 10:21 AM
== END | disposition home or self-care (01) ==
LOC: RADMRIMAIN 16:33
PROVIDERS: ATTEND Urology
DX: N28.1 Cyst of kidney, acquired (principal); K76.0 Fatty (change of) liver, not elsewhere classified
CPT/HCPCS: 74183; A9585